=== PATIENT | male | born 1960 ===

== ENCOUNTER 2016-10-14 17:23 | Emergency (ER) | payer OTHER, MEDICARE ==
[2016-10-14 17:23] VITALS: PULSE 61; BMI 35.2
[2016-10-14 17:30] VITALS: TEMP 98.2
[2016-10-14] MEDS ORDERED: HYDROmorphone 1 mg/ml ISec IVP STA ×2 (18:09→21:02)
--- NOTE | 2016-10-14 18:20 | ED PDOC ---
Arrival/HPI - General Chief Complaint: Abnormal Skin Integrity Time Seen by Provider: 10/14/16 17:24 Historian: Patient - History of Present Illness Narrative History of Present Illness (Text): 10/14/16 18:13 56 y/o male, pmh including left lower leg dvt/PE, post lt. knee surgery done on 07/2016, c/o bilateral lower extremities rash x 1 week. Pt. stated that he has lt. lower calf pain for the past 1 week, no fall or trauma, concerning about the DVT, no dizziness, no night sweat, no palpitation, no chest pain or shortness of breath, no other medical or psychological complaints. Past Medical History - Provider Review Nursing Documentation Reviewed: Yes - Past History Past History: No Previous - Infectious Disease Hx of Infectious Diseases: None - Tetanus Immunization Tetanus Immunization: Unknown - Reproductive Currently : No - Cardiac Hx Atrial Fibrillation: Yes (states he was dx'ed in an er in [place]) - Pulmonary Hx Respiratory Disorders: Yes Hx Asthma: Yes Hx Sleep Apnea: Yes (cpap at night) - Neurological Hx Neurological Disorder: No - HEENT Hx HEENT Disorder: Yes (Wears glasses.) - Renal Hx Renal Disorder: No Hx Dialysis: No - Endocrine/Metabolic Hx Endocrine Disorders: No - Hematological/Oncological Hx Blood Disorders: No - Integumentary Hx Dermatological Disorder: Yes (s/p left knee replacement in 05/2013. Open wound.) - Musculoskeletal/Rheumatological Hx Musculoskeletal Disorders: Yes (States APPROX 12 back surgeries/4 cervical surgeries/spinal fusion sX.) - Gastrointestinal Hx Gastrointestinal Disorders: Yes Hx Gastroesophageal Reflux: Yes Other/Comment: esophagitis, duodenitis, gastrophoresis, colitis - Genitourinary/Gynecological Hx Genitourinary Disorders: Yes Hx Prostate Problems: Yes - Psychiatric Hx Psychophysiologic Disorder: Yes Hx Substance Use: No - Surgical History Hx Cardiac Catheterization: Yes (no stent placement) Hx Joint Replacement: Yes (Right hip,LEFT HIP, Left knee x 2.) Hx Musculoskeletal Surgery: Yes Hx Orthopedic Surgery: Yes (neck, left knee replacement x 2) Other/Comment: rt inguinla surgery 07/31/15. L knee tendon graft 07/2016 - Anesthesia Hx Anesthesia Reactions: No (DIFFICULT INTUBATION R/T NECK PROBLEMS) Hx Malignant Hyperthermia: No - Suicidal Assessment Feels Threatened In Home Enviroment: No Family/Social History - Physician Review Nursing Documentation Reviewed: Yes Family/Social History: Unknown Family HX Smoking Status: Never Smoked Hx Alcohol Use: No Hx Substance Use: No Hx Substance Use Treatment: No Allergies/Home Meds Allergies/Adverse Reactions: Allergies strawberry Allergy (Intermediate, Verified 10/14/16 17:25) RASH tobramycin Allergy (Intermediate, Verified 10/14/16 17:25) DIZZINESS Home Medications: Home Meds Medication Instructions Recorded Confirmed Hydromorphone HCl [Dilaudid] 2 mg PO TID 09/06/14 10/14/16 Metoprolol Succinate [Toprol XL] 100 mg PO DAILY 10/12/14 10/14/16 Dicyclomine [Bentyl] 20 mg PO BID 10/16/15 10/14/16 Omeprazole [Prilosec] 40 mg PO QAM 10/16/15 10/14/16 Warfarin [Coumadin] 7 mg PO HS 01/14/16 10/14/16 Flecainide [Tambocor] 50 mg PO BID 03/17/16 10/14/16 Furosemide [Lasix] 40 mg PO BID 03/17/16 10/14/16 Cyclobenzaprine [Flexeril] 10 mg PO BID 08/21/16 10/14/16 Review of Systems - Review of Systems Constitutional: absent: Fatigue, Fevers Eyes: absent: Vision Changes ENT: absent: Hearing Changes Respiratory: absent: Cough, Sputum Cardiovascular: absent: Chest Pain Gastrointestinal: absent: Abdominal Pain, Nausea, Vomiting Musculoskeletal: Arthralgias. absent: Back Pain, Neck Pain, Joint Swelling, Myalgias Skin: Rash. absent: Pruritis, Skin Lesions, Laceration, Abscess, Ulcer, Cellulitis Neurological: absent: Headache, Dizziness, Focal Weakness, Gait Changes Psychiatric: absent: Anxiety, Depression, Suicidal Ideation Physical Exam Vital Signs Temp Pulse Resp BP Pulse Ox 10/14/16 21:48 61 18 149/92 H 99 10/14/16 20:00 65 18 165/86 H 98 10/14/16 18:09 61 18 169/93 H 98 10/14/16 17:29 98.2 F 56 L 202/95 H 16 L Appearance: Positive for: Well-Appearing, Non-Toxic, Comfortable Pain Distress: Severe Mental Status: Positive for: Alert and Oriented X 3 - Systems Exam Head: Present: Atraumatic, Normocephalic Pupils: Present: PERRL Extroacular Muscles: Present: EOMI Conjunctiva: Present: Normal Mouth: Present: Moist Mucous Membranes Neck: Present: Normal Range of Motion Respiratory/Chest: Present: Clear to Auscultation, Good Air Exchange. No: Respiratory Distress, Accessory Muscle Use Cardiovascular: Present: Regular Rate and Rhythm, Normal S1, S2. No: Murmurs Abdomen: Present: Normal Bowel Sounds. No: Tenderness, Distention, Peritoneal Signs Back: Present: Normal Inspection Upper Extremity: Present: Normal Inspection. No: Cyanosis, Edema Lower Extremity: Present: Normal Inspection, Other (Bilateral lower extremities : +lt. knee swelling with bilateral petechiae rash noted on the lake and calf region, no cellulitis or streaking, no other medical or psychological complaints , +DPPT pulses, capillary refill< 2 seconds, neurovascular intact. ). No: Edema Neurological: Present: GCS=15, CN II-XII Intact, Speech Normal Skin: Present: Warm, Dry, Normal Color. No: Rashes Psychiatric: Present: Alert, Oriented x 3, Normal Insight, Normal Concentration Medical Decision Making ED Course and Treatment: 10/14/16 18:27 -labs/ck -LLE venuous doppler -Lt. knee xray -IV dilaudid 10/14/16 21:39 -LLE Venuous Doppler: as per preliminary report, no acute DVT -Lt. knee xray show no acute fracture or dislocation -Labs are non-significant -INR 2.98 within therapeutic range -Pain decreased -Pt. now stated that the rash on his legs been going on for over 5 months, no pain or discomfort. -Discharge home with vi wrap, crutches, continue your pain medication at home, follow up with your own pmd/orthopedic/dermatitis/hematology and oncology within 2 days, return to the ER for any new or worsening signs or symptoms. - Lab Interpretations Lab Results: 10/14/16 19:58 10/14/16 19:58 Lab Results 10/14/16 21:05: PT 32.2 H*, INR 2.98 H 10/14/16 19:58: Sodium 142, Potassium 3.6, Chloride 107, Carbon Dioxide 25, Anion Gap 14, BUN 17, Creatinine 0.9, Est GFR ( Amer) > 60, Est GFR (Non- Af Amer) > 60, Random Glucose 92, Calcium 8.9, Total Bilirubin 0.6, AST 30, ALT 43, Alkaline Phosphatase 177 H, Total Creatine Kinase 436 H, CK-MB (CK-2) 3.9 H , CK-MB (CK-2) % Cancelled, Total Protein 7.6, Albumin 4.0, Globulin 3.6, Albumin/Globulin Ratio 1.1 10/14/16 19:58: WBC 7.4, RBC 4.68, Hgb 14.1, Hct 41.3 L, MCV 88.2, MCH 30.1, MCHC 34.1, RDW 14.3, Plt Count 169, MPV 9.0, Gran % 65.3, Lymph % (Auto) 27.2, [place] % (Auto) 5.0, Eos % (Auto) 2.2, Baso % (Auto) 0.3, Gran # 4.84, Lymph # 2.0 , [place] # 0.4, Eos # 0.2, Baso # 0.02 I have reviewed the lab results: Yes Interpretation: No clinic. lab abnormalty - RAD Interpretation Radiology Orders: 10/14/16 18:09 DUPLEX LOWER EXTRM VEIN LEFT [US] Stat 10/14/16 18:20 KNEE WITH PATELLA LEFT 3 VIEW [RAD] Stat LLE Venuous Doppler: as per preliminary report, no acute DVT Lt. knee xray: no acute findings. Drug Coordinator: Radiologist - Medication Orders Current Medication Orders: Discontinued Medications Hydromorphone HCl (Dilaudid) 1 mg IVP STAT STA Stop: 10/14/16 18:10 Last Admin: 10/14/16 20:45 Dose: 1 mg Hydromorphone HCl (Dilaudid) 1 mg IVP STAT STA Stop: 10/14/16 21:03 Last Admin: 10/14/16 21:27 Dose: 1 mg - PA / FRONT MAN / Resident Statement MD/DO has reviewed & agrees with the documentation as recorded. Disposition/Present on Arrival - Present on Arrival Any Indicators Present on Arrival: No History of DVT/PE: Yes History of Uncontrolled Diabetes: No Urinary Catheter: No History of Decub. Ulcer: No History Surgical Site Infection Following: None - Disposition Have Diagnosis and Disposition been Completed?: Yes Diagnosis: Petechiae, Leg pain, Knee pain Disposition: HOME/ ROUTINE Disposition Time: 21:42 Patient Plan: Discharge Condition: IMPROVED Additional Instructions: Discharge home with vi wrap, crutches, continue your pain medication at home, follow up with your own pmd/orthopedic/dermatitis/hematology and oncology within 2 days, return to the ER for any new or worsening signs or symptoms. Referrals: Raciel Rivera MD [Primary Care Provider] - Follow up with primary Jennifer Hanna MD [Staff Provider] - Follow up with primary April Lackey MD [Staff Provider] - Follow up with primary Patricia Colon MD [Staff Provider] - Follow up with primary Forms: WORK NOTE
[2016-10-14 18:27] VITALS: RESP 18
[2016-10-14 19:59] LABS: ADD MANUAL DIFF? NO
[2016-10-14 20:08] LABS: BASO # 0.02 K/mm3 (0.0-2.0); BASO % 0.3 % (0.0-3.0); EOS # 0.2 (0.0-0.7); EOS % 2.2 % (1.5-5.0); GRAN # 4.84 (1.4-6.5); GRAN % 65.3 % (50.0-68.0); HEMATOCRIT 41.3 % (42.0-52.0); LYMPH % 27.2 % (22.0-35.0); MEAN CELL VOLUME 88.2 fL (80.0-105.0); MEAN CORPUSCULAR HEMOGLOBIN 30.1 pg (25.0-35.0); MEAN CORPUSCULAR HGB CONC 34.1 g/dl (31.0-37.0); MONO # 0.4 (0.1-0.6); PLATELET COUNT 169 10^3/uL (120.0-450.0); RED CELL DISTRIBUTION WIDTH 14.3 % (11.5-14.5); WHITE BLOOD COUNT 7.4 10^3/ul (4.5-11.0)
[2016-10-14 20:33] LABS: ALB/GLOB RATIO 1.1 (1.1-1.8); ALKALINE PHOSPHATASE 177 U/L (38-133); ALT/SGPT 43 U/L (7-56); AST/SGOT 30 U/L (15-59); BILIRUBIN,TOTAL 0.6 mg/dL (0.2-1.3); BLOOD UREA NITROGEN 17 mg/dL (7-21); CALCIUM 8.9 mg/dL (8.4-10.5); CARBON DIOXIDE 25 mmol/L (21-33); CHLORIDE 107 mmol/L (98-107); GFR AFRICAN-AMERICAN > 60; GLUCOSE,RANDOM 92 mg/dL (70-110); POTASSIUM 3.6 mmol/L (3.6-5.0); SODIUM 142 mmol/L (132-148); TOTAL PROTEIN 7.6 g/dL (5.8-8.3)
[2016-10-14 21:30] LABS: INR 2.98 (0.93-1.08)
[2016-10-14 23:29] VITALS: BP 149/92; PULSE 61; O2SAT 99
--- NOTE | 2016-10-15 08:14 | RAD ---
PROCEDURE: Left Knee Radiographs. HISTORY: Pain. COMPARISON: None. FINDINGS: BONES: Normal. No fracture. JOINTS: There is a left knee prosthesis. There is no fracture or loosening JOINT EFFUSION: None. OTHER FINDINGS: None. IMPRESSION: No acute findings
--- NOTE | 2016-10-15 09:08 | US ---
PROCEDURE: Left lower extremity venous US HISTORY: Leg pain and swelling. Evaluate for DVT. PHYSICIAN(S): Adan Herrera MD. TECHNIQUE: Duplex sonography and color-flow Doppler with graded compression were used to evaluate the deep venous system of the left lower extremity. FINDINGS: The exam is limited by edema and body habitus. The visualized deep venous system of the left lower extremity is sonographically normal and compressible. Normal wave forms and augmentation are seen. There is no sonographic evidence for deep venous thrombosis in the visualized segments of the left lower extremity. IMPRESSION: 1. No sonographic evidence for deep venous thrombosis in the visualized segments of the left lower extremity.
== END 2016-10-14 21:48 | disposition home or self-care (01) ==
LOC: ED 17:23
DX: R23.3 Spontaneous ecchymoses (principal); M25.562 Pain in left knee; M79.605 Pain in left leg
CPT/HCPCS: 73562; 80053; 82550; 82553; 85025; 85610; 93971; 96374; 96376; 99283; J1170

== ENCOUNTER 2016-10-31 08:50 | Emergency (ER) | payer OTHER, MEDICARE ==
[2016-10-31 08:51] VITALS: PULSE 61
[2016-10-31 09:10] VITALS: O2SAT 98; BMI 36.6
--- NOTE | 2016-10-31 10:15 | ED PDOC ---
Arrival/HPI - General Chief Complaint: Trauma Time Seen by Provider: 10/31/16 09:43 Historian: Patient - History of Present Illness Narrative History of Present Illness (Text): 10/31/16 10:07 A 56 year old male, whose past medical history includes DVT and PE on coumadin, presents to the emergency department complaining of pain to the inside and back of his left knee after mechanical fall 2 days ago. Patient reports the floor was slippery causing him to fall backwards. Patient denies striking the back of his head, loss of consciousness, headache, dizziness, numbness, weakness, neck pain, back pain, fever, nausea, vomiting, abdominal pain, chest pain, shortness of breath or any other complaints. Patient able to ambulate with cane, which is normal to baseline. Patient reports he has had 4 surgeries on his left knee and has a scheduled appointment with his private orthopedist this week. PMD: Dr. Rivera Time/Duration: Other (2 days) Symptom Course: Unchanged Quality: Other Context: Other Past Medical History - Provider Review Nursing Documentation Reviewed: Yes - Past History Past History: No Previous - Infectious Disease Hx of Infectious Diseases: None - Tetanus Immunization Tetanus Immunization: Unknown - Reproductive Currently : No - Cardiac Hx Atrial Fibrillation: Yes (states he was dx'ed in an er in [place]) - Pulmonary Hx Respiratory Disorders: Yes Hx Asthma: Yes Hx Sleep Apnea: Yes (cpap at night) - Neurological Hx Neurological Disorder: No - HEENT Hx HEENT Disorder: Yes (Wears glasses.) - Renal Hx Renal Disorder: No Hx Dialysis: No - Endocrine/Metabolic Hx Endocrine Disorders: No - Hematological/Oncological Hx Blood Disorders: No - Integumentary Hx Dermatological Disorder: Yes (s/p left knee replacement in 05/2013. Open wound.) - Musculoskeletal/Rheumatological Hx Musculoskeletal Disorders: Yes (States APPROX 12 back surgeries/4 cervical surgeries/spinal fusion sX.) Hx Back Pain: Yes Other/Comment: walks with cane - Gastrointestinal Hx Gastrointestinal Disorders: Yes Hx Gastroesophageal Reflux: Yes Other/Comment: esophagitis, duodenitis, gastrophoresis, colitis - Genitourinary/Gynecological Hx Genitourinary Disorders: Yes Hx Prostate Problems: Yes - Psychiatric Hx Psychophysiologic Disorder: Yes Hx Substance Use: No - Surgical History Hx Cardiac Catheterization: Yes (no stent placement) Hx Joint Replacement: Yes (Right hip,LEFT HIP, Left knee x 2.) Hx Musculoskeletal Surgery: Yes Hx Orthopedic Surgery: Yes (neck, left knee replacement x 2) Other/Comment: rt inguinla surgery 07/31/15. L knee tendon graft 07/2016 - Anesthesia Hx Anesthesia: Yes Hx Anesthesia Reactions: No (DIFFICULT INTUBATION R/T NECK PROBLEMS) Hx Malignant Hyperthermia: No - Suicidal Assessment Feels Threatened In Home Enviroment: No Family/Social History - Physician Review Nursing Documentation Reviewed: Yes Family/Social History: No Known Family HX Smoking Status: Never Smoked Hx Alcohol Use: No Hx Substance Use: No Hx Substance Use Treatment: No Allergies/Home Meds Allergies/Adverse Reactions: Allergies strawberry Allergy (Intermediate, Verified 10/31/16 09:12) RASH tobramycin Allergy (Intermediate, Verified 10/31/16 09:12) DIZZINESS Home Medications: Home Meds Medication Instructions Recorded Confirmed Hydromorphone HCl [Dilaudid] 2 mg PO TID 09/06/14 10/31/16 Metoprolol Succinate [Toprol XL] 100 mg PO DAILY 10/12/14 10/31/16 Dicyclomine [Bentyl] 20 mg PO BID 10/16/15 10/31/16 Omeprazole [Prilosec] 40 mg PO QAM 10/16/15 10/31/16 Warfarin [Coumadin] 7 mg PO HS 01/14/16 10/31/16 Flecainide [Tambocor] 50 mg PO BID 03/17/16 10/31/16 Furosemide [Lasix] 40 mg PO BID 03/17/16 10/31/16 Cyclobenzaprine [Flexeril] 10 mg PO BID 08/21/16 10/31/16 Albuterol Sulfate [Proair 1 puff IH PRN PRN 10/31/16 10/31/16 Respiclick] Lidocaine [Lidocare] 2 each TD DAILY 10/31/16 10/31/16 Oxybutynin [Ditropan Tab] 10 mg PO DAILY 10/31/16 10/31/16 Review of Systems - Physician Review All systems were reviewed & negative as marked: Yes - Review of Systems Constitutional: absent: Fevers Respiratory: absent: SOB Cardiovascular: absent: Chest Pain Gastrointestinal: absent: Abdominal Pain, Diarrhea, Nausea, Vomiting Musculoskeletal: Other (left knee pain). absent: Back Pain, Neck Pain Neurological: absent: Headache, Dizziness, Focal Weakness (/numbness) Physical Exam - Physical Exam Narrative Physical Exam (Text): Constitutional: No acute distress. Head: Normocephalic. Atraumatic. Eyes: PERRL. ENT: Moist mucous membranes. Neck: Supple. No midline tenderness. Cardiovascular: Regular rate. Chest: No tenderness. Respiratory: Clear to auscultation bilaterally. GI: Soft. Nontender. Nondistended. Back: No CVA tenderness. No midline tenderness. Musculoskeletal: Full ROM. No bony tenderness. No swelling of extremities. No masses. Old surgical scars noted. Patient able to ambulate with cane, normal to baseline. Neurologic: Alert, no focal deficit. Vital Signs Reviewed: Yes Vital Signs Temp Pulse Resp BP Pulse Ox 10/31/16 09:09 98.0 F 57 L 19 180/100 H 98 Temperature: Afebrile Blood Pressure: Hypertensive Pulse: Bradycardic Respiratory Rate: Normal Appearance: Positive for: Well-Appearing, Non-Toxic, Comfortable Pain Distress: None Mental Status: Positive for: Alert and Oriented X 3 Medical Decision Making ED Course and Treatment: 10/31/16 10:07 Impression: A 56 year old male with left knee pain after mechanical fall. Full ROM and no bony tenderness on exam. Patient ambulating wit cane, normal to baseline. Plan: -- Left knee xray, check hardware -- Labs -- Toradol -- Reassess and disposition Progress Notes: XR negative for fracture or misplaced hardware as read by me. - Lab Interpretations Lab Results: 10/31/16 10:24 10/31/16 10:24 Lab Results 10/31/16 10:24: Sodium 142, Potassium 3.7, Chloride 106, Carbon Dioxide 28, Anion Gap 12, BUN 16, Creatinine 0.8, Est GFR ( Amer) > 60, Est GFR (Non- Af Amer) > 60, Random Glucose 96, Calcium 8.9, Total Bilirubin 0.5, AST 40, ALT 56, Alkaline Phosphatase 157 H, Total Protein 7.3, Albumin 4.1, Globulin 3.2, Albumin/Globulin Ratio 1.3 10/31/16 10:24: PT 25.7 H, INR 2.38 H, APTT 38.0 H 10/31/16 10:24: WBC 6.9, RBC 4.68, Hgb 14.0, Hct 40.8 L, MCV 87.2, MCH 29.9, MCHC 34.3, RDW 14.1, Plt Count 158, MPV 9.2, Gran % 64.7, Lymph % (Auto) 27.4, [place] % (Auto) 5.4, Eos % (Auto) 2.2, Baso % (Auto) 0.3, Gran # 4.44, Lymph # 1.9 , [place] # 0.4, Eos # 0.2, Baso # 0.02 I have reviewed the lab results: Yes - RAD Interpretation Radiology Orders: 10/31/16 10:04 KNEE LEFT 2 VIEWS (AP & LAT) [RAD] Stat - Medication Orders Current Medication Orders: Discontinued Medications Ketorolac Tromethamine (Toradol) 30 mg IVP STAT STA Stop: 10/31/16 10:04 Last Admin: 10/31/16 10:07 Dose: 30 mg - Scribe Statement The provider has reviewed the documentation as recorded by the Gracy Jaffe Provider Scribe Attestation: All medical record entries made by the Scribe were at my direction and personally dictated by me. I have reviewed the chart and agree that the record accurately reflects my personal performance of the history, physical exam, medical decision making, and the department course for this patient. I have also personally directed, reviewed, and agree with the discharge instructions and disposition. Disposition/Present on Arrival - Present on Arrival Any Indicators Present on Arrival: Yes History of DVT/PE: Yes History of Uncontrolled Diabetes: No Urinary Catheter: No History of Decub. Ulcer: No History Surgical Site Infection Following: None - Disposition Have Diagnosis and Disposition been Completed?: Yes Diagnosis: Knee pain Disposition: HOME/ ROUTINE Disposition Time: 11:29 Patient Plan: Discharge Patient Problems: Current Active Problems Problem Status Onset Knee pain Acute Condition: STABLE Discharge Instructions (ExitCare): Knee Pain (ED) Referrals: Raciel Rivera MD [Primary Care Provider] - Follow up with primary
[2016-10-31 10:25] LABS: ADD MANUAL DIFF? NO
[2016-10-31 10:27] LABS: BASO # 0.02 K/mm3 (0.0-2.0); BASO % 0.3 % (0.0-3.0); EOS # 0.2 (0.0-0.7); EOS % 2.2 % (1.5-5.0); GRAN # 4.44 (1.4-6.5); GRAN % 64.7 % (50.0-68.0); HEMATOCRIT 40.8 % (42.0-52.0); LYMPH # 1.9 (1.2-3.4); LYMPH % 27.4 % (22.0-35.0); MEAN CELL VOLUME 87.2 fL (80.0-105.0); MEAN CORPUSCULAR HEMOGLOBIN 29.9 pg (25.0-35.0); MEAN CORPUSCULAR HGB CONC 34.3 g/dl (31.0-37.0); MEAN PLATELET VOLUME 9.2 fl (7.0-11.0); MONO # 0.4 (0.1-0.6); MONO % 5.4 % (1.0-6.0); PLATELET COUNT 158 10^3/uL (120.0-450.0); RED CELL DISTRIBUTION WIDTH 14.1 % (11.5-14.5); WHITE BLOOD COUNT 6.9 10^3/ul (4.5-11.0)
[2016-10-31 10:39] LABS: ALB/GLOB RATIO 1.3 (1.1-1.8); ALKALINE PHOSPHATASE 157 U/L (38-133); ALT/SGPT 56 U/L (7-56); AST/SGOT 40 U/L (15-59); BILIRUBIN,TOTAL 0.5 mg/dL (0.2-1.3); BLOOD UREA NITROGEN 16 mg/dL (7-21); CALCIUM 8.9 mg/dL (8.4-10.5); CARBON DIOXIDE 28 mmol/L (21-33); CHLORIDE 106 mmol/L (98-107); GFR AFRICAN-AMERICAN > 60; GLUCOSE,RANDOM 96 mg/dL (70-110); POTASSIUM 3.7 mmol/L (3.6-5.0); SODIUM 142 mmol/L (132-148); TOTAL PROTEIN 7.3 g/dL (5.8-8.3)
[2016-10-31 10:41] LABS: INR 2.38 (0.93-1.08)
[2016-10-31 11:58] VITALS: BP 154/80; PULSE 78; RESP 18; TEMP 98.6
--- NOTE | 2016-10-31 14:49 | RAD ---
PROCEDURE: Left Knee Radiographs. HISTORY: Pain. COMPARISON: None. FINDINGS: BONES: Status post total knee replacement. No acute fracture identified. No evidence of prosthesis loosening. JOINTS: Total knee replacement JOINT EFFUSION: None. OTHER FINDINGS: None. IMPRESSION: No acute fracture. Status post left TKR.
== END 2016-10-31 11:30 | disposition home or self-care (01) ==
LOC: ED 08:50
DX: M25.562 Pain in left knee (principal); Z86.718 Personal history of other venous thrombosis and embolism; Z79.01 Long term (current) use of anticoagulants; Z96.652 Presence of left artificial knee joint
CPT/HCPCS: 73560; 80053; 85025; 85610; 85730; 96374; 99283; J1885

== ENCOUNTER 2016-11-20 11:27 | Emergency (ER) | payer OTHER, MEDICARE ==
[2016-11-20 11:27] VITALS: PULSE 61; BMI 36.6
[2016-11-20 11:40] VITALS: BP 160/92; PULSE 75; RESP 17; TEMP 98.6; O2SAT 95
--- NOTE | 2016-11-20 11:59 | ED PDOC ---
Arrival/HPI - General Chief Complaint: Upper Extremity Problem/Injury Time Seen by Provider: 11/20/16 11:45 Historian: Patient - History of Present Illness Narrative History of Present Illness (Text): 11/20/16 11:59 This 56 yo male presents to this ED c/o b/l shoulder pain, and neck pain x 2 weeks. Patient stated he slipped and fell down on his right side. Patient also admits doing Physical Therapy, doing exercise. Denies sob, cp, abdominal pain, paresthesias, weakness, dizziness, abnormal gait, /GI incontinence, saddle anesthesias, back pain, or urinary retention. Time/Duration: Other (2 weeks) Context: Home Past Medical History - Provider Review Nursing Documentation Reviewed: Yes - Past History Past History: No Previous - Infectious Disease Hx of Infectious Diseases: None - Tetanus Immunization Tetanus Immunization: Unknown - Reproductive Currently : No - Cardiac Hx Atrial Fibrillation: Yes (states he was dx'ed in an [place]) - Pulmonary Hx Respiratory Disorders: Yes Hx Asthma: Yes Hx Sleep Apnea: Yes (cpap at night) - Neurological Hx Neurological Disorder: No - HEENT Hx HEENT Disorder: Yes (Wears glasses.) - Renal Hx Renal Disorder: No Hx Dialysis: No - Endocrine/Metabolic Hx Endocrine Disorders: No - Hematological/Oncological Hx Blood Disorders: No - Integumentary Hx Dermatological Disorder: Yes (s/p left knee replacement in 05/2013. Open wound.) - Musculoskeletal/Rheumatological Hx Musculoskeletal Disorders: Yes (States APPROX 12 back surgeries/4 cervical surgeries/spinal fusion sX.) Hx Back Pain: Yes Other/Comment: walks with cane - Gastrointestinal Hx Gastrointestinal Disorders: Yes Hx Gastroesophageal Reflux: Yes Other/Comment: esophagitis, duodenitis, gastrophoresis, colitis - Genitourinary/Gynecological Hx Genitourinary Disorders: Yes Hx Prostate Problems: Yes - Psychiatric Hx Psychophysiologic Disorder: Yes Hx Substance Use: No - Surgical History Hx Cardiac Catheterization: Yes (no stent placement) Hx Joint Replacement: Yes (Right hip,LEFT HIP, Left knee x 2.) Hx Musculoskeletal Surgery: Yes Hx Orthopedic Surgery: Yes (neck, left knee replacement x 2) Other/Comment: rt inguinla surgery 07/31/15. L knee tendon graft 07/2016 - Anesthesia Hx Anesthesia: Yes Hx Anesthesia Reactions: (DIFFICULT INTUBATION R/T NECK PROBLEMS) - Suicidal Assessment Feels Threatened In Home Enviroment: No Family/Social History - Physician Review Nursing Documentation Reviewed: Yes Family/Social History: No Known Family HX Smoking Status: Never Smoked Hx Alcohol Use: No Hx Substance Use: No Hx Substance Use Treatment: No Allergies/Home Meds Allergies/Adverse Reactions: Allergies strawberry Allergy (Intermediate, Verified 11/20/16 11:34) RASH tobramycin Allergy (Intermediate, Verified 11/20/16 11:34) DIZZINESS Home Medications: Home Meds Medication Instructions Recorded Confirmed Hydromorphone HCl [Dilaudid] 2 mg PO TID 09/06/14 11/20/16 Metoprolol Succinate [Toprol XL] 100 mg PO DAILY 10/12/14 11/20/16 Dicyclomine [Bentyl] 20 mg PO BID 10/16/15 11/20/16 Omeprazole [Prilosec] 40 mg PO QAM 10/16/15 11/20/16 Warfarin [Coumadin] 7 mg PO HS 01/14/16 11/20/16 Flecainide [Tambocor] 50 mg PO BID 03/17/16 11/20/16 Furosemide [Lasix] 40 mg PO BID 03/17/16 11/20/16 Cyclobenzaprine [Flexeril] 10 mg PO BID 08/21/16 11/20/16 Albuterol Sulfate [Proair 1 puff IH PRN PRN 10/31/16 11/20/16 Respiclick] Lidocaine [Lidocare] 2 each TD DAILY 10/31/16 11/20/16 Oxybutynin [Ditropan Tab] 10 mg PO DAILY 10/31/16 11/20/16 Review of Systems - Review of Systems Constitutional: Normal. absent: Fatigue, Weight Change, Fevers Eyes: Normal ENT: Normal Respiratory: Normal Cardiovascular: Normal Gastrointestinal: Normal Genitourinary Male: Normal Musculoskeletal: Neck Pain, Other (shoulders pain) Skin: Normal Neurological: Normal Endocrine: Normal Hemo/Lymphatic: Normal Psychiatric: Normal Physical Exam Vital Signs Temp Pulse Resp BP Pulse Ox 11/20/16 11:36 98.6 F 75 17 160/92 H 95 Temperature: Afebrile Blood Pressure: Normal Pulse: Regular Respiratory Rate: Normal Appearance: Positive for: Well-Appearing, Non-Toxic, Comfortable Pain Distress: None Mental Status: Positive for: Alert and Oriented X 3 - Systems Exam Head: Present: Atraumatic, Normocephalic Pupils: Present: PERRL Extroacular Muscles: Present: EOMI Conjunctiva: Present: Normal Mouth: Present: Moist Mucous Membranes Neck: Present: Normal Range of Motion Back: Present: Normal Inspection. No: CVA Tenderness Upper Extremity: Present: Normal Inspection, Normal ROM, NORMAL PULSES, Neurovascularly Intact, Capillary Refill < 2s. No: Cyanosis, Edema Lower Extremity: Present: Normal Inspection, NORMAL PULSES, Normal ROM, Neurovascularly Intact, Capillary Refill < 2 s. No: Edema Neurological: Present: GCS=15, CN II-XII Intact, Speech Normal, Motor Func Grossly Intact, Normal Sensory Function, Normal Cerebellar Funct, Gait Normal, Memory Normal Skin: Present: Warm, Dry, Normal Color. No: Rashes Psychiatric: Present: Alert, Oriented x 3, Normal Insight, Normal Concentration Medical Decision Making ED Course and Treatment: 11/20/16 13:02 Re-evaluation. Patient feels better. Discussed results and plan with patient who expresses understanding. All questions answered and there is agreement with the plan to discharge home with instructions. Patient stable for discharge. Return if symptoms persist or worsen Re-evaluation Time: 13:02 Reassessment Condition: Re-examined, Improved - RAD Interpretation Narrative RAD Interpretations (Text): 11/20/16 13:03 b/l shoulder x-rays: No fx or sublux. Radiology Orders: 11/20/16 11:56 SHOULDER MIN 2 VIEWS BI [RAD] Stat 11/20/16 11:58 CERVICAL SPINE >18YR W/OBLIQUE [RAD] Stat - Medication Orders Current Medication Orders: Discontinued Medications Ketorolac Tromethamine (Toradol) 30 mg IM STAT STA Stop: 11/20/16 11:59 Last Admin: 11/20/16 12:02 Dose: 30 mg Disposition/Present on Arrival - Present on Arrival Any Indicators Present on Arrival: No History of DVT/PE: Yes History of Uncontrolled Diabetes: No Urinary Catheter: No History of Decub. Ulcer: No History Surgical Site Infection Following: None - Disposition Have Diagnosis and Disposition been Completed?: Yes Diagnosis: Shoulder pain, Neck pain Disposition: HOME/ ROUTINE Disposition Time: 13:04 Patient Plan: Discharge Condition: GOOD Discharge Instructions (ExitCare): Arthralgia (ED), Shoulder Pain (ED) Additional Instructions: Call private doctor for follow up visit in 1-2 days. Take medication as instructed. Return to emergency if symptoms worsen. Prescriptions: Methocarbamol [Robaxin-750] 750 mg PO TID #21 tab Naproxen 500 mg PO BID PRN #10 tab PRN Reason: Pain, Severe (8-10) Referrals: Raciel Rivera MD [Primary Care Provider] - Follow up with primary Forms: WORK NOTE
--- NOTE | 2016-11-20 13:12 | RAD ---
PROCEDURE: Radiographs of both shoulders HISTORY: pain s/p fall COMPARISON: 03/17/2016 FINDINGS: BONES: Right shoulder: Normal. No fracture. Left shoulder: Normal. No fracture. JOINTS: Right shoulder: Normal. No significant osteoarthritic changes. Left shoulder: There is some separation of the acromioclavicular joint with 14 mm of separation. This is unchanged SOFT TISSUES: Right shoulder: Grossly unremarkable. Right shoulder: Grossly unremarkable. OTHER FINDINGS: None. IMPRESSION: No acute findings
--- NOTE | 2016-11-20 13:16 | RAD ---
PROCEDURE: Cervical Spine Radiographs. HISTORY: Pain. COMPARISON: 02/14/2011 FINDINGS: BONES: Alignment maintained. No fracture. Dens Intact. DISC SPACES: Previous fusion C4-5, C5-6 and C6-7. SOFT TISSUES: Normal. No prevertebral soft tissue swelling. OTHER FINDINGS: Epidural leads are now seen IMPRESSION: No acute findings
== END 2016-11-20 13:16 | disposition home or self-care (01) ==
LOC: ED 11:27
DX: M54.2 Cervicalgia (principal); M25.512 Pain in left shoulder
CPT/HCPCS: 72050; 73030; 96372; 99282; J1885

== ENCOUNTER 2016-12-07 13:04 | Emergency (ER) | payer OTHER, MEDICARE ==
[2016-12-07 13:05] VITALS: PULSE 61; BMI 36.6
[2016-12-07 13:23] VITALS: RESP 18
[2016-12-07 13:38] VITALS: TEMP 98.1
--- NOTE | 2016-12-07 13:43 | ED PDOC ---
Arrival/HPI - General Chief Complaint: Headache Time Seen by Provider: 12/07/16 13:17 Historian: Patient - History of Present Illness Narrative History of Present Illness (Text): 12/07/16 13:39 56 year old male presents to the emergency department with headache after hitting his head on a wooden beam yesterday. Patient states he felt nauseous and disoriented today. Patient states he took Dilaudid for the pain. Denies pain to other body parts. No other complaints. Time/Duration: 24 hours Symptom Onset: Gradual Symptom Course: Unchanged Associated Symptoms (Text): None Past Medical History - Provider Review Nursing Documentation Reviewed: Yes - Past History Past History: No Previous - Infectious Disease Hx of Infectious Diseases: None - Tetanus Immunization Tetanus Immunization: Unknown - Reproductive Currently : No - Cardiac Hx Atrial Fibrillation: Yes (states he was dx'ed in an er in [place]) - Pulmonary Hx Respiratory Disorders: Yes Hx Asthma: Yes Hx Sleep Apnea: Yes (cpap at night) - Neurological Hx Neurological Disorder: No - HEENT Hx HEENT Disorder: Yes (Wears glasses.) - Renal Hx Renal Disorder: No Hx Dialysis: No - Endocrine/Metabolic Hx Endocrine Disorders: No - Hematological/Oncological Hx Blood Disorders: No - Integumentary Hx Dermatological Disorder: Yes (s/p left knee replacement in 05/2013. Open wound.) - Musculoskeletal/Rheumatological Hx Musculoskeletal Disorders: Yes (States APPROX 12 back surgeries/4 cervical surgeries/spinal fusion sX.) Hx Back Pain: Yes Other/Comment: walks with cane - Gastrointestinal Hx Gastrointestinal Disorders: Yes Hx Gastroesophageal Reflux: Yes Other/Comment: esophagitis, duodenitis, gastrophoresis, colitis - Genitourinary/Gynecological Hx Genitourinary Disorders: Yes Hx Prostate Problems: Yes - Psychiatric Hx Psychophysiologic Disorder: Yes Hx Substance Use: No - Surgical History Hx Cardiac Catheterization: Yes (no stent placement) Hx Joint Replacement: Yes (Right hip,LEFT HIP, Left knee x 2.) Hx Musculoskeletal Surgery: Yes Hx Orthopedic Surgery: Yes (neck, left knee replacement x 2) Other/Comment: rt inguinla surgery 07/31/15. L knee tendon graft 07/2016 - Anesthesia Hx Anesthesia: Yes Hx Anesthesia Reactions: (DIFFICULT INTUBATION R/T NECK PROBLEMS) - Suicidal Assessment Feels Threatened In Home Enviroment: No Family/Social History - Physician Review Nursing Documentation Reviewed: Yes Family/Social History: Unknown Family HX Smoking Status: Never Smoked Hx Alcohol Use: No Hx Substance Use: No Hx Substance Use Treatment: No Allergies/Home Meds Allergies/Adverse Reactions: Allergies strawberry Allergy (Intermediate, Verified 12/07/16 13:19) RASH tobramycin Allergy (Intermediate, Verified 12/07/16 13:19) DIZZINESS Home Medications: Home Meds Medication Instructions Recorded Confirmed Hydromorphone HCl [Dilaudid] 2 mg PO TID 09/06/14 11/20/16 Metoprolol Succinate [Toprol XL] 100 mg PO DAILY 10/12/14 11/20/16 Dicyclomine [Bentyl] 20 mg PO BID 10/16/15 11/20/16 Omeprazole [Prilosec] 40 mg PO QAM 10/16/15 11/20/16 Warfarin [Coumadin] 7 mg PO HS 01/14/16 11/20/16 Flecainide [Tambocor] 50 mg PO BID 03/17/16 11/20/16 Furosemide [Lasix] 40 mg PO BID 03/17/16 11/20/16 Cyclobenzaprine [Flexeril] 10 mg PO BID 08/21/16 11/20/16 Albuterol Sulfate [Proair 1 puff IH PRN PRN 10/31/16 11/20/16 Respiclick] Lidocaine [Lidocare] 2 each TD DAILY 10/31/16 11/20/16 Oxybutynin [Ditropan Tab] 10 mg PO DAILY 10/31/16 11/20/16 Review of Systems - Physician Review All systems were reviewed & negative as marked: Yes - Review of Systems Respiratory: absent: SOB Cardiovascular: absent: Chest Pain Gastrointestinal: Nausea Neurological: Headache Physical Exam Vital Signs Reviewed: Yes Vital Signs Temp Pulse Resp BP Pulse Ox 12/07/16 14:55 65 18 169/96 H 99 12/07/16 13:28 98.1 F 62 18 164/95 H 96 12/07/16 13:20 97.9 F 64 18 198/106 H 96 Temperature: Afebrile Blood Pressure: Hypertensive Pulse: Regular Respiratory Rate: Normal Appearance: Positive for: Well-Appearing, Non-Toxic, Comfortable Pain Distress: None Mental Status: Positive for: Alert and Oriented X 3 - Systems Exam Head: Present: Atraumatic, Normocephalic Pupils: Present: PERRL Extroacular Muscles: Present: EOMI Conjunctiva: Present: Normal Mouth: Present: Moist Mucous Membranes Neck: Present: Normal Range of Motion Respiratory/Chest: Present: Clear to Auscultation, Good Air Exchange. No: Respiratory Distress, Accessory Muscle Use Cardiovascular: Present: Regular Rate and Rhythm, Normal S1, S2. No: Murmurs Abdomen: Present: Normal Bowel Sounds. No: Tenderness, Distention, Peritoneal Signs Back: Present: Normal Inspection Upper Extremity: Present: Normal Inspection. No: Cyanosis, Edema Lower Extremity: Present: Normal Inspection. No: Edema Neurological: Present: GCS=15, CN II-XII Intact, Speech Normal Skin: Present: Warm, Dry, Normal Color. No: Rashes Psychiatric: Present: Alert, Oriented x 3, Normal Insight, Normal Concentration Medical Decision Making ED Course and Treatment: Impression: 56 year old male presents to the emergency department with headache after hitting his head on a wooden beam yesterday. Differential Diagnosis included but are not limited to: Head injury r/o intracranial hemorrhage Plan: -- CT Head -- Reassess and disposition Prior Visits: Notes and results from previous visits were reviewed. Patient last seen in the ED on 11/20/16 for bilateral shoulder pain and discharged home. Progress Notes: CT Head Dispatcher Ship Pilot: Rodrigo Vidal MD IMPRESSION: No acute findings 12/07/16 14:[address] head negative. Neuro exam normal. Patient walking with no ataxia. Patient feels comfortable going home and he will f/u with his PMD Dr. Kimball and Neurologist Dr. Hendrickson. - RAD Interpretation Radiology Orders: 12/07/16 13:38 Brain [HEAD W/O CONTRAST] [CT] Stat - Medication Orders Current Medication Orders: Discontinued Medications Ondansetron HCl (Zofran Odt) 4 mg PO STAT STA Stop: 12/07/16 13:57 Last Admin: 12/07/16 13:57 Dose: 4 mg - Scribe Statement The provider has reviewed the documentation as recorded by the Gracy Pichardo Provider Scribe Attestation: All medical record entries made by the Dannaibmarkell were at my direction and personally dictated by me. I have reviewed the chart and agree that the record accurately reflects my personal performance of the history, physical exam, medical decision making, and the department course for this patient. I have also personally directed, reviewed, and agree with the discharge instructions and disposition. Disposition/Present on Arrival - Present on Arrival Any Indicators Present on Arrival: Yes History of DVT/PE: Yes History of Uncontrolled Diabetes: No Urinary Catheter: No History of Decub. Ulcer: No History Surgical Site Infection Following: None - Disposition Have Diagnosis and Disposition been Completed?: Yes Diagnosis: Head injury Disposition: HOME/ ROUTINE Disposition Time: 14:48 Patient Plan: Discharge Patient Problems: Current Active Problems Problem Status Onset Head injury Acute Condition: IMPROVED Discharge Instructions (ExitCare): Concussion (ED) Additional Instructions: Ms Mendoza, thank you for letting us take care of you today. Your provider was Dr. Mo. You were treated for Head Injury. The emergency medical care you received today was directed at your acute symptoms. If you were prescribed any medication, please fill it and take as directed. It may take several days for your symptoms to resolve. Return to the Emergency Department if your symptoms worsen, do not improve, or if you have any other problems. Please contact your doctor or call one of the physicians/clinics you have been referred to that are listed on the Patient Visit Information form that is included in your discharge packet. Bring any paperwork you were given at discharge with you along with any medications you are taking to your follow up visit. Our treatment cannot replace ongoing medical care by a primary care provider (PCP) outside of the emergency department. Thank you for allowing the [facility] team to be part of your care today. If you had an X-Ray or CT scan: A Radiologist will review the ED reading if any change in treatment is needed we will contact you. If you had a blood, urine, or wound culture: It will take several days for the results, if any change in treatment is needed we will contact you. If you had an STI test: It will take 48 hours for the results. Please call after 1 week if you have not heard back. Referrals: Raciel Rivera MD [Primary Care Provider] - Follow up with primary Forms: [employer] (Telugu), WORK NOTE
--- NOTE | 2016-12-07 14:39 | CT ---
PROCEDURE: CT HEAD WITHOUT CONTRAST. HISTORY: head injury r/o ICH COMPARISON: None available. TECHNIQUE: Axial computed tomography images were obtained through the head/brain without intravenous contrast. Radiation dose: Total exam DLP = 767 mGy-cm. This CT exam was performed using one or more of the following dose reduction techniques: Automated exposure control, adjustment of the mA and/or kV according to patient size, and/or use of iterative reconstruction technique. FINDINGS: HEMORRHAGE: No intracranial hemorrhage. BRAIN: No mass effect or edema. No atrophy or chronic microvascular ischemic changes. VENTRICLES: Unremarkable. No hydrocephalus. CALVARIUM: Unremarkable. PARANASAL SINUSES: Unremarkable as visualized. No significant inflammatory changes. MASTOID AIR CELLS: Unremarkable as visualized. No inflammatory changes. OTHER FINDINGS: None. IMPRESSION: No acute findings
[2016-12-07 15:52] VITALS: BP 167/94; PULSE 60; O2SAT 100
== END 2016-12-07 15:52 | disposition home or self-care (01) ==
LOC: ED 13:04
DX: S09.90XA Unspecified injury of head, initial encounter (principal); W22.8XXA Striking against or struck by other objects, initial encounter
CPT/HCPCS: 70450; 96372; 99285; J1885

== ENCOUNTER 2016-12-17 11:15 | Emergency (ER) | payer OTHER, MEDICARE ==
[2016-12-17 11:15] VITALS: PULSE 61; BMI 36.6
[2016-12-17 11:53] VITALS: RESP 18
--- NOTE | 2016-12-17 12:06 | ED PDOC ---
Arrival/HPI - General Historian: Patient - History of Present Illness Time/Duration: 4-6 hours - General Chief Complaint: Abnormal Skin Integrity Time Seen by Provider: 12/17/16 11:20 - History of Present Illness Narrative History of Present Illness (Text): 12/17/16 12:03 56 year old with past medical history of chronic back and knee pain s/p multiple surgeries, GERD, HTN, DVT, Afib, COPD, and sleep apnea presents to [facility] with a painful lump under his jaw. Patient noticed the lump this morning when he was eating breakfast. Patient reports the pain is worse with swallowing and movement. He also reports to have hoarseness of voice and subjective fever at home. Patient had a dental procedure 2 weeks ago. Patient has an interventional pain procedure for his left leg with Dr. Garcia tomorrow. Denies headache, chills, difficulty breathing, chest pain, palpitations, abdominal pain, nausea, vomiting, or diarrhea. (Denise Jimenez) Past Medical History - Provider Review Nursing Documentation Reviewed: Yes - Past History Past History: No Previous - Infectious Disease Hx of Infectious Diseases: None - Tetanus Immunization Tetanus Immunization: Unknown - Reproductive Currently : No - Cardiac Hx Atrial Fibrillation: Yes (states he was dx'ed in an er in [place]) - Pulmonary Hx Respiratory Disorders: Yes Hx Asthma: Yes Hx Sleep Apnea: Yes (cpap at night) - Neurological Hx Neurological Disorder: No - HEENT Hx HEENT Disorder: Yes (Wears glasses.) - Renal Hx Renal Disorder: No Hx Dialysis: No - Endocrine/Metabolic Hx Endocrine Disorders: No - Hematological/Oncological Hx Blood Disorders: No - Integumentary Hx Dermatological Disorder: Yes (s/p left knee replacement in 05/2013. Open wound.) - Musculoskeletal/Rheumatological Hx Musculoskeletal Disorders: Yes (States APPROX 12 back surgeries/4 cervical surgeries/spinal fusion sX.) Hx Back Pain: Yes Other/Comment: walks with cane - Gastrointestinal Hx Gastrointestinal Disorders: Yes Hx Gastroesophageal Reflux: Yes Other/Comment: esophagitis, duodenitis, gastrophoresis, colitis - Genitourinary/Gynecological Hx Genitourinary Disorders: Yes Hx Prostate Problems: Yes - Psychiatric Hx Psychophysiologic Disorder: Yes Hx Substance Use: No - Surgical History Hx Cardiac Catheterization: Yes (no stent placement) Hx Joint Replacement: Yes (Right hip,LEFT HIP, Left knee x 2.) Hx Musculoskeletal Surgery: Yes Hx Orthopedic Surgery: Yes (neck, left knee replacement x 2) Other/Comment: rt inguinla surgery 07/31/15. L knee tendon graft 07/2016 - Anesthesia Hx Anesthesia: Yes Hx Anesthesia Reactions: (DIFFICULT INTUBATION R/T NECK PROBLEMS) - Suicidal Assessment Feels Threatened In Home Enviroment: No Family/Social History - Physician Review Nursing Documentation Reviewed: Yes Family/Social History: No Known Family HX Smoking Status: Never Smoked Hx Alcohol Use: No Hx Substance Use: No Hx Substance Use Treatment: No Allergies/Home Meds Allergies/Adverse Reactions: Allergies strawberry Allergy (Intermediate, Verified 12/07/16 13:19) RASH tobramycin Allergy (Intermediate, Verified 12/07/16 13:19) DIZZINESS Home Medications: Home Meds Medication Instructions Recorded Confirmed Hydromorphone HCl [Dilaudid] 2 mg PO TID 09/06/14 12/17/16 Metoprolol Succinate [Toprol XL] 100 mg PO DAILY 10/12/14 12/17/16 Dicyclomine [Bentyl] 20 mg PO BID 10/16/15 12/17/16 Omeprazole [Prilosec] 40 mg PO QAM 10/16/15 12/17/16 Warfarin [Coumadin] 7 mg PO HS 01/14/16 12/17/16 Flecainide [Tambocor] 50 mg PO BID 03/17/16 12/17/16 Furosemide [Lasix] 40 mg PO BID 03/17/16 12/17/16 Cyclobenzaprine [Flexeril] 10 mg PO BID 08/21/16 12/17/16 Albuterol Sulfate [Proair 1 puff IH PRN PRN 10/31/16 12/17/16 Respiclick] Lidocaine [Lidocare] 2 each TD DAILY 10/31/16 12/17/16 Oxybutynin [Ditropan Tab] 10 mg PO DAILY 10/31/16 12/17/16 Losartan [Cozaar] 1 tab PO DAILY 12/17/16 12/17/16 Review of Systems - Physician Review All systems were reviewed & negative as marked: Yes - Review of Systems Constitutional: Normal, Fatigue, Fevers Eyes: Normal. absent: Photophobia ENT: Voice Changes Respiratory: Normal. absent: SOB, Cough Cardiovascular: Normal. absent: Chest Pain, Palpitations Gastrointestinal: Normal. absent: Abdominal Pain, Diarrhea, Nausea, Vomiting Musculoskeletal: Back Pain, Neck Pain Skin: Normal Neurological: Normal. absent: Dizziness Endocrine: Normal Hemo/Lymphatic: Normal Psychiatric: Normal Physical Exam Vital Signs Reviewed: Yes Temperature: Afebrile Blood Pressure: Hypertensive Pulse: Regular Respiratory Rate: Normal Appearance: Positive for: Well-Appearing, Non-Toxic, Comfortable Pain Distress: Mild Mental Status: Positive for: Alert and Oriented X 3 - Systems Exam Head: Present: Atraumatic Pupils: Present: PERRL Extroacular Muscles: Present: EOMI Conjunctiva: Present: Normal Mouth: Present: Moist Mucous Membranes Neck: Present: Other (swollen mass under the jaw, approximately 5cm in diameter , non indurated, painful to the touch, erythema appreciated). No: Normal Range of Motion (limited range of motion due to pain) Respiratory/Chest: Present: Clear to Auscultation, Good Air Exchange. No: Respiratory Distress, Accessory Muscle Use Cardiovascular: Present: Normal S1, S2. No: Murmurs Abdomen: Present: Normal Bowel Sounds, Other (multiple scars from spine surgeries, intrathecal pump located at RLQ). No: Tenderness, Distention, Peritoneal Signs Upper Extremity: Present: Normal Inspection, NORMAL PULSES. No: Cyanosis, Edema Lower Extremity: Present: Normal Inspection, NORMAL PULSES. No: Edema Neurological: Present: GCS=15, CN II-XII Intact, Speech Normal Skin: Present: Warm, Dry. No: Rashes Psychiatric: Present: Alert, Oriented x 3, Normal Insight, Normal Concentration Medical Decision Making ED Course and Treatment: 12/17/16 13:15 -CBC, CMP -TSH -CT neck soft tissue -Toradol DDx: reactive lymph nodes, sialadenitis, thyroiditis 12/17/16 15:[address] Rivera whom recommended patient to be discharged with Augmentin and follow up with ENT Dr. Boudreaux. 56 year old male presents with a painful lump under his jaw was found to have 11mm reactive lymph node. Patient is able to swallow soft food and liquid with pain. Patient's pain improved with Toradol and will be discharge on augment and instructed to follow with up ENT as outpatient. (Denise Jimenez) Patient seen and examined with resident. Came up with treatment and disposition plan with resident. The patient is a 56 year old male who comes into the emergency department for evaluation of a painful lump under his jaw. Additional HPI details as noted by the resident. (Petra Williamson) - Lab Interpretations Lab Results: 12/17/16 12:35 12/17/16 12:35 Lab Results 12/17/16 12:35: TSH 3rd Generation 1.9 12/17/16 12:35: Sodium 141, Potassium 3.7, Chloride 105, Carbon Dioxide 28, Anion Gap 12, BUN 15, Creatinine 0.9, Est GFR ( Amer) > 60, Est GFR (Non- Af Amer) > 60, Random Glucose 87, Calcium 8.6, Total Bilirubin 0.6, AST 27, ALT 43, Alkaline Phosphatase 133, Total Protein 7.1, Albumin 3.9, Globulin 3.2, Albumin/Globulin Ratio 1.2 12/17/16 12:35: WBC 7.2, RBC 4.71, Hgb 14.0, Hct 40.9 L, MCV 86.8, MCH 29.7, MCHC 34.2, RDW 14.0, Plt Count 134, MPV 9.0, Gran % 70.1 H, Lymph % (Auto) 21.7 L, Hickman % (Auto) 6.4 H, Eos % (Auto) 1.7, Baso % (Auto) 0.1, Gran # 5.01, Lymph # 1.6, Hickman # 0.5, Eos # 0.1, Baso # 0.01 - RAD Interpretation Narrative RAD Interpretations (Text): 12/17/16 14:45 PROCEDURE: CT NECK WITH CONTRAST HISTORY: soft tissue swelling under the jaw COMPARISON: None TECHNIQUE: CT of the neck with intravenous contrast. Coronal and sagittal reformats generated. Intravenous contrast dose: 100 cc of Omni 350 Radiation dose: DLP 460 mGy-cm This CT exam was performed using one or more of the following dose reduction techniques: Automated exposure control, adjustment of the mA and/or kV according to patient size, and/or use of iterative reconstruction technique. FINDINGS: NASOPHARYNX: Unremarkable. SUPRAHYOID NECK: Unremarkable oropharynx, oral cavity, parapharyngeal space and retropharyngeal space. INFRAHYOID NECK: Unremarkable larynx, hypopharynx, and supraglottic space. Vocal cords intact. MASS: None. GLANDS: Parotid and submandibular glands unremarkable. Normal size thyroid gland, without nodule. LYMPH NODES: Mildly enlarged lymph nodes are seen in the submandibular space an submental space. The largest node measures 11 mm. This adenopathy was not present on the previous exam. Findings are seen on axial image 46 and 42 series 2 CERVICAL SPINE: No fracture or focal lesion. VASCULAR STRUCTURES: Unremarkable. OTHER FINDINGS: None. IMPRESSION: Mildly enlarged lymph nodes are seen in the submandibular space an submental space. The largest node measures 11 mm. This adenopathy was not present on the previous exam (Denise Jimenez) Radiology Orders: 12/17/16 12:05 NECK SOFT TISSUE W/CONTRAST [CT] Stat - Medication Orders Current Medication Orders: Discontinued Medications Amoxicillin/Clavulanate Potassium (Augmentin 875 Mg-125 Mg Tab) 1 tab PO STAT STA PRN Reason: Protocol Stop: 12/17/16 15:05 Last Admin: 12/17/16 15:45 Dose: 1 tab Ibuprofen (Motrin Tab) 600 mg PO STAT STA Stop: 12/17/16 12:24 Last Admin: 12/17/16 13:21 Dose: Iohexol (Omnipaque 350 100 Ml) Confirm Administered Dose 350 mg .ROUTE .STK-MED ONE Stop: 12/17/16 12:12 Ketorolac Tromethamine (Toradol) 30 mg IVP STAT STA Stop: 12/17/16 13:22 Last Admin: 12/17/16 13:49 Dose: 30 mg - PA / [employer] INSPECTOR / Resident Statement / has reviewed & agrees with the documentation as recorded. / has examined the patient and agrees with the treatment plan. Disposition/Present on Arrival - Present on Arrival Any Indicators Present on Arrival: Yes History of DVT/PE: Yes History of Uncontrolled Diabetes: No Urinary Catheter: No History of Decub. Ulcer: No History Surgical Site Infection Following: None - Disposition Have Diagnosis and Disposition been Completed?: Yes Disposition Time: 14:58 Patient Plan: Discharge - Disposition Diagnosis: Reactive lymphadenopathy Disposition: HOME/ ROUTINE Condition: STABLE Discharge Instructions (ExitCare): Lymphadenopathy (ED) Additional Instructions: Take full course of antibiotics. Follow-up with ENT and PMD within 1 week. Return to emergency department with any worsening symptoms. Prescriptions: Amoxicillin/Clavulanate [Augmentin 875 MG-125 MG] 1 tab PO BID #20 tab Referrals: Raciel Rivera MD [Primary Care Provider] - Follow up with primary Milan Boudreaux DO [Staff Provider] - Follow up with primary
[2016-12-17] MEDS ORDERED: Iohexol 350 MG/100 ML VIAL ONE (12:11)
[2016-12-17 12:45] LABS: BASO # 0.01 K/mm3 (0.0-2.0); BASO % 0.1 % (0.0-3.0); EOS # 0.1 (0.0-0.7); EOS % 1.7 % (1.5-5.0); GRAN # 5.01 (1.4-6.5); GRAN % 70.1 % (50.0-68.0); LYMPH # 1.6 (1.2-3.4); LYMPH % 21.7 % (22.0-35.0); MEAN CELL VOLUME 86.8 fL (80.0-105.0); MEAN CORPUSCULAR HEMOGLOBIN 29.7 pg (25.0-35.0); MEAN CORPUSCULAR HGB CONC 34.2 g/dl (31.0-37.0); MONO # 0.5 (0.1-0.6); MONO % 6.4 % (1.0-6.0); PLATELET COUNT 134 10^3/uL (120.0-450.0); RBC 4.71 10^6/uL (3.5-6.1); WHITE BLOOD COUNT 7.2 10^3/ul (4.5-11.0)
[2016-12-17 13:01] LABS: ALB/GLOB RATIO 1.2 (1.1-1.8); ALBUMIN 3.9 g/dL (3.0-4.8); ALT/SGPT 43 U/L (7-56); AST/SGOT 27 U/L (15-59); BLOOD UREA NITROGEN 15 mg/dL (7-21); CALCIUM 8.6 mg/dL (8.4-10.5); GFR AFRICAN-AMERICAN > 60; GFR NON-AFRICAN AMERICAN > 60
[2016-12-17 14:18] VITALS: BP 180/76; TEMP 98.2; O2SAT 98
[2016-12-17 14:31] VITALS: PULSE 64
--- NOTE | 2016-12-17 14:34 | CT ---
PROCEDURE: CT NECK WITH CONTRAST HISTORY: soft tissue swelling under the jaw COMPARISON: None TECHNIQUE: CT of the neck with intravenous contrast. Coronal and sagittal reformats generated. Intravenous contrast dose: 100 cc of Omni 350 Radiation dose: DLP 460 mGy-cm This CT exam was performed using one or more of the following dose reduction techniques: Automated exposure control, adjustment of the mA and/or kV according to patient size, and/or use of iterative reconstruction technique. FINDINGS: NASOPHARYNX: Unremarkable. SUPRAHYOID NECK: Unremarkable oropharynx, oral cavity, parapharyngeal space and retropharyngeal space. INFRAHYOID NECK: Unremarkable larynx, hypopharynx, and supraglottic space. Vocal cords intact. MASS: None. GLANDS: Parotid and submandibular glands unremarkable. Normal size thyroid gland, without nodule. LYMPH NODES: Mildly enlarged lymph nodes are seen in the submandibular space an submental space. The largest node measures 11 mm. This adenopathy was not present on the previous exam. Findings are seen on axial image 46 and 42 series 2 CERVICAL SPINE: No fracture or focal lesion. VASCULAR STRUCTURES: Unremarkable. OTHER FINDINGS: None. IMPRESSION: Mildly enlarged lymph nodes are seen in the submandibular space an submental space. The largest node measures 11 mm. This adenopathy was not present on the previous exam
[2016-12-17] MEDS ORDERED: Amoxicillin-Clav 875-125 mg Tab PO STA (15:04)
== END 2016-12-17 15:46 | disposition home or self-care (01) ==
LOC: ED 11:15
DX: R59.1 Generalized enlarged lymph nodes (principal); I10 Essential (primary) hypertension
CPT/HCPCS: 70491; 80053; 84443; 85025; 96374; 99283; J1885; Q9967

== ENCOUNTER 2016-12-21 12:57 | Emergency (ER) | payer OTHER, MEDICARE ==
[2016-12-21 12:57] VITALS: PULSE 61; BMI 36.6
--- NOTE | 2016-12-21 13:36 | ED PDOC ---
Arrival/HPI - General Time Seen by Provider: 12/21/16 13:02 - History of Present Illness Narrative History of Present Illness (Text): 12/21/16 13:47 56yo with persistent painful palpable submandibular lymph nodes. Pt denies f/c, denies tristhmus, denies diff or pain with swallowing. No other complaints. States he is taking augmentin as prescribed. Reports recent dental work. Denies other complaints. Past Medical History - Provider Review Nursing Documentation Reviewed: Yes - Past History Past History: No Previous - Infectious Disease Hx of Infectious Diseases: None - Tetanus Immunization Tetanus Immunization: Unknown - Reproductive Currently : No - Cardiac Hx Atrial Fibrillation: Yes (states he was dx'ed in an er in [place]) - Pulmonary Hx Respiratory Disorders: Yes Hx Asthma: Yes Hx Sleep Apnea: Yes (cpap at night) - Neurological Hx Neurological Disorder: No - HEENT Hx HEENT Disorder: Yes (Wears glasses.) - Renal Hx Renal Disorder: No Hx Dialysis: No - Endocrine/Metabolic Hx Endocrine Disorders: No - Hematological/Oncological Hx Blood Disorders: No - Integumentary Hx Dermatological Disorder: Yes (s/p left knee replacement in 05/2013. Open wound.) - Musculoskeletal/Rheumatological Hx Musculoskeletal Disorders: Yes (States APPROX 12 back surgeries/4 cervical surgeries/spinal fusion sX.) Hx Back Pain: Yes Other/Comment: walks with cane - Gastrointestinal Hx Gastrointestinal Disorders: Yes Hx Gastroesophageal Reflux: Yes Other/Comment: esophagitis, duodenitis, gastrophoresis, colitis - Genitourinary/Gynecological Hx Genitourinary Disorders: Yes Hx Prostate Problems: Yes - Psychiatric Hx Psychophysiologic Disorder: Yes Hx Substance Use: No - Surgical History Hx Cardiac Catheterization: Yes (no stent placement) Hx Joint Replacement: Yes (Right hip,LEFT HIP, Left knee x 2.) Hx Musculoskeletal Surgery: Yes Hx Orthopedic Surgery: Yes (neck, left knee replacement x 2) Other/Comment: rt inguinla surgery 07/31/15. L knee tendon graft 07/2016 - Anesthesia Hx Anesthesia: Yes Hx Anesthesia Reactions: (DIFFICULT INTUBATION R/T NECK PROBLEMS) - Suicidal Assessment Feels Threatened In Home Enviroment: No Family/Social History Family/Social History: Unknown Family HX Smoking Status: Never Smoked Hx Alcohol Use: No Hx Substance Use: No Hx Substance Use Treatment: No Allergies/Home Meds Allergies/Adverse Reactions: Allergies strawberry Allergy (Intermediate, Verified 12/07/16 13:19) RASH tobramycin Allergy (Intermediate, Verified 12/07/16 13:19) DIZZINESS Home Medications: Home Meds Medication Instructions Recorded Confirmed Hydromorphone HCl [Dilaudid] 2 mg PO TID 09/06/14 12/17/16 Metoprolol Succinate [Toprol XL] 100 mg PO DAILY 10/12/14 12/17/16 Dicyclomine [Bentyl] 20 mg PO BID 10/16/15 12/17/16 Omeprazole [Prilosec] 40 mg PO QAM 10/16/15 12/17/16 Warfarin [Coumadin] 7 mg PO HS 01/14/16 12/17/16 Flecainide [Tambocor] 50 mg PO BID 03/17/16 12/17/16 Furosemide [Lasix] 40 mg PO BID 03/17/16 12/17/16 Cyclobenzaprine [Flexeril] 10 mg PO BID 08/21/16 12/17/16 Albuterol Sulfate [Proair 1 puff IH PRN PRN 10/31/16 12/17/16 Respiclick] Lidocaine [Lidocare] 2 each TD DAILY 10/31/16 12/17/16 Oxybutynin [Ditropan Tab] 10 mg PO DAILY 10/31/16 12/17/16 Losartan [Cozaar] 1 tab PO DAILY 12/17/16 12/17/16 Physical Exam - Physical Exam Narrative Physical Exam (Text): - Review of Systems Constitutional: Normal. absent: Fatigue, Weight Change, Fevers Eyes: Normal ENT: submandibular pain denies sore throat, denies tristhmus Respiratory: Normal. absent: SOB, Cough, Sputum Cardiovascular: absent: Chest Pain, Palpitations, Syncope Gastrointestinal: Normal. absent: Abdominal Pain, Diarrhea, Nausea, Vomiting Genitourinary: Normal. absent: Dysuria, Frequency, Hematuria Musculoskeletal: Normal. absent: Arthralgias, Back Pain, Neck Pain Skin: no rashes, no erythema Neurological: absent: Focal Weakness Endocrine: Normal Hemo/Lymphatic: Normal Psychiatric: No suicidal or homicidal ideations Physical exam Patient appears age appropriate in no distress, speaking full sentences without difficulty - Systems Exam Head: Present: Atraumatic, Normocephalic Pupils: Present: PERRL Extroacular Muscles: Present: EOMI Conjunctiva: Present: Normal Mouth: Present: Moist Mucous Membranes Neck: Present: Normal Range of Motion. No: MIDLINE TENDERNESS, Paraspinal Tenderness Respiratory/Chest: Present: Clear to Auscultation, Good Air Exchange. No: Respiratory Distress, Accessory Muscle Use, Tachypneic Cardiovascular: Present: Regular Rate and Rhythm, Normal S1, S2, Peripheal Pulses Present. No: Murmurs Abdomen: Present: Normal Bowel Sounds. No: Tenderness, Distention, Peritoneal Signs, Rebound, Guarding Back: Present: Normal Inspection. No: Midline Tenderness, Paraspinal Tenderness Upper Extremity: Present: Normal Inspection. No: Cyanosis, Edema Lower Extremity: Present: Normal Inspection. No: Edema Neurological: Present: GCS=15, Speech Normal, cranial nerves II through XII fully intact with no cerebellar abnormality, neurosensory fully intact. No focal neurological deficits. Skin: Present: Warm, Dry, Normal Color. No: Rashes Lymphatic: Present: OX3, NI, NC Psychiatric: Present: Alert, Oriented x 3, Normal Insight, Normal Concentration - Systems Exam Mouth: Present: Moist Mucous Membranes, Dry. No: Drooling, Trismus Pharnyx: Present: Normal, Other (no pain or floor of mouth elevation). No: ERYTHEMA, EXUDATE, TONSILS ENLARGED, Peritonsilar Swelling, Uvular Deviation, Muffled/Hoarse Voice, Strider, Soft Palate/Uvular Edema Neck: Present: Lymphadenopathy (submandibular, palpable, mildly tender LNs). No : Meningeal Signs, MIDLINE TENDERNESS, Paraspinal Tenderness, JVD Medical Decision Making ED Course and Treatment: 12/21/16 13:35 Impression: 56yo male with submandibular lymphadenopathy. pt instructed to f/u with PMD and specialist for further w/u Plan: -- Reassess and disposition Prior Visits: Notes and results from previous visits were reviewed. The patient was seen in the emergency department on 12/17/16 for a painful lump under his jaw. Patient was found to have a 11mm reactive lymph node and was discharged home on Augmentin. Progress Notes: Pt states he understands to return to the ER right away for new or worsening symptoms or for inability to f/u with PMD or specialist as instructed. Patient states that he fully agrees with and understands discharge instructions. States that he agrees with the plan and disposition. Verbalized and repeated discharge instructions and plan. I have given the patient opportunity to ask any additional questions. - Scribe Statement The provider has reviewed the documentation as recorded by the Scribe Gisela Mcdaniel Provider Scribe Attestation: All medical record entries made by the Scribe were at my direction and personally dictated by me. I have reviewed the chart and agree that the record accurately reflects my personal performance of the history, physical exam, medical decision making, and the department course for this patient. I have also personally directed, reviewed, and agree with the discharge instructions and disposition. Disposition/Present on Arrival - Present on Arrival Any Indicators Present on Arrival: No History of DVT/PE: Yes History of Uncontrolled Diabetes: No Urinary Catheter: No History Surgical Site Infection Following: None - Disposition Have Diagnosis and Disposition been Completed?: Yes Diagnosis: Lymphadenopathy of head and neck region Disposition: HOME/ ROUTINE Disposition Time: 13:45 Patient Plan: Discharge Condition: GOOD Discharge Instructions (ExitCare): Lymphadenopathy (ED) Additional Instructions: PLEASE RETURN TO THE EMERGENCY DEPARTMENT FOR NEW OR WORSENING SYMPTOMS. RETURN RIGHT AWAY IF YOU CANNOT FOLLOW UP WITH YOUR PRIMARY CARE DOCTOR, CLINIC, OR SPECIALIST IN 1-2 DAYS. Referrals: Raciel Rivera MD [Primary Care Provider] - Follow up with primary Last Valdez DO [Staff Provider] - Follow up with primary Milan Boudreaux DO [Staff Provider] - Follow up with primary Otoniel Bautista DO [Doctor Osteopathy] - Follow up with primary
[2016-12-21 14:16] VITALS: BP 178/89; PULSE 82; RESP 18; TEMP 97.9; O2SAT 98
== END 2016-12-21 14:23 | disposition home or self-care (01) ==
LOC: ED 12:57
DX: R59.1 Generalized enlarged lymph nodes (principal)

== ENCOUNTER 2017-01-13 04:14 | Emergency (ER) | payer OTHER, MEDICARE ==
[2017-01-13 04:14] VITALS: PULSE 61; BMI 36.6
[2017-01-13 04:31] VITALS: BP 161/99; PULSE 58; RESP 18; TEMP 97.6; O2SAT 99
[2017-01-13] MEDS ORDERED: DiphenhydrAMINE 50 mg/ml Inj IVP STA ×2 (04:38→04:40)
--- NOTE | 2017-01-13 04:38 | ED PDOC ---
Arrival/HPI <Bogdan Joseph - Last Filed: 01/13/17 05:39> - General Historian: Patient <Yaw Rudolph - Last Filed: 01/13/17 06:09> - General Chief Complaint: Allergic Reaction Time Seen by Provider: 01/13/17 04:18 - History of Present Illness Narrative History of Present Illness (Text): 01/13/17 04:38 56yo M with PMHx including chronic back and knee pain, GERD, HTN, multiple DVTs and PEs, A.Fib here for evaluation of possible allergic reaction. Patient states that he had [place] for dinner around 10PM last night, he woke up at 1AM this morning with "burning scalp". He states that his entire body started itching soon after and started to feel a bit short of breath so decided to come into the ER for further evaluation. He denies any Chest pain. Able to speak in full and complete sentences. No N/V/D. no abd pain. He does report that he had a procedure to remove his intra-abdominal thecal pain pump 2 weeks ago. He denies any other complaints. PMD: Michael PMHx: Asthma, Chronic Back and Knee pain, A.Fib, GERD, multiple DVTs and PEs, HTN PSHx: 12 back surgeries. Spinal fusion at multiple different levels Allergy: [place], Tobramycin (Yaw Rudolph) Past Medical History - Provider Review Nursing Documentation Reviewed: Yes - Past History Past History: No Previous - Infectious Disease Hx of Infectious Diseases: None - Tetanus Immunization Tetanus Immunization: Unknown - Reproductive Currently : No - Cardiac Hx Atrial Fibrillation: Yes (states he was dx'ed in an [place] in [place]) - Pulmonary Hx Respiratory Disorders: Yes Hx Asthma: Yes Hx Pulmonary Embolism: Yes (hx) Hx Sleep Apnea: Yes (cpap at night) - Neurological Hx Neurological Disorder: No - HEENT Hx HEENT Disorder: Yes (Wears glasses.) - Renal Hx Renal Disorder: No Hx Dialysis: No - Endocrine/Metabolic Hx Endocrine Disorders: No - Hematological/Oncological Hx Blood Disorders: No - Integumentary Hx Dermatological Disorder: Yes (s/p left knee replacement in 05/2013. Open wound.) - Musculoskeletal/Rheumatological Hx Musculoskeletal Disorders: Yes (States APPROX 12 back surgeries/4 cervical surgeries/spinal fusion sX.) Hx Back Pain: Yes Other/Comment: walks with cane - Gastrointestinal Hx Gastrointestinal Disorders: Yes Hx Gastroesophageal Reflux: Yes Other/Comment: esophagitis, duodenitis, gastrophoresis, colitis - Genitourinary/Gynecological Hx Genitourinary Disorders: Yes Hx Prostate Problems: Yes - Psychiatric Hx Psychophysiologic Disorder: Yes Hx Depression: Yes Hx Substance Use: No - Surgical History Hx Cardiac Catheterization: Yes (no stent placement) Hx Joint Replacement: Yes (Right hip,LEFT HIP, Left knee x 2.) Hx Musculoskeletal Surgery: Yes Hx Orthopedic Surgery: Yes (neck, left knee replacement x 2) Other/Comment: rt inguinla surgery 07/31/15. L knee tendon graft 07/2016/ left hip/liseth shoulders/lumbar - Anesthesia Hx Anesthesia: Yes Hx Anesthesia Reactions: (DIFFICULT INTUBATION R/T NECK PROBLEMS) - Suicidal Assessment Feels Threatened In Home Enviroment: No <Yaw Rudolph - Last Filed: 01/13/17 06:09> Family/Social History - Physician Review Nursing Documentation Reviewed: Yes Family/Social History: No Known Family HX Smoking Status: Never Smoked Hx Alcohol Use: No Hx Substance Use: No Hx Substance Use Treatment: No <Yaw Rudolph - Last Filed: 01/13/17 06:09> Allergies/Home Meds <Bogdan Joseph - Last Filed: 01/13/17 05:39> <Yaw Rudolph - Last Filed: 01/13/17 06:09> Allergies/Adverse Reactions: Allergies strawberry Allergy (Intermediate, Verified 01/13/17 04:25) RASH tobramycin Allergy (Intermediate, Verified 01/13/17 04:25) DIZZINESS Home Medications: Home Meds Medication Instructions Recorded Confirmed Hydromorphone HCl [Dilaudid] 2 mg PO TID 09/06/14 01/13/17 Metoprolol Succinate [Toprol XL] 100 mg PO QAM 10/12/14 01/13/17 Dicyclomine [Bentyl] 20 mg PO TID 10/16/15 01/13/17 Omeprazole [Prilosec] 40 mg PO QAM 10/16/15 01/13/17 Warfarin [Coumadin] 7 mg PO HS 01/14/16 01/13/17 Flecainide [Tambocor] 5 mg PO BID 03/17/16 01/13/17 Furosemide [Lasix] 40 mg PO BID 03/17/16 01/13/17 Albuterol Sulfate [Proair 1 puff IH PRN PRN 10/31/16 01/13/17 Respiclick] Oxybutynin [Ditropan Tab] 5 mg PO DAILY 10/31/16 01/13/17 Montelukast [Singulair] 10 mg PO DAILY 01/13/17 01/13/17 Review of Systems - Physician Review All systems were reviewed & negative as marked: Yes - Review of Systems Constitutional: absent: Fatigue, Fevers ENT: absent: Rhinorrhea Respiratory: SOB. absent: Cough, Wheezing Cardiovascular: absent: Chest Pain, Edema Gastrointestinal: absent: Abdominal Pain, Diarrhea, Nausea, Vomiting Genitourinary Male: absent: Dysuria Skin: Pruritis <Yaw Rudolph - Last Filed: 01/13/17 06:09> Physical Exam Vital Signs Reviewed: Yes Temperature: Afebrile Blood Pressure: Hypertensive Pulse: Regular Respiratory Rate: Normal Appearance: Positive for: Well-Appearing, Comfortable Mental Status: Positive for: Alert and Oriented X 3 - Systems Exam Head: Present: Atraumatic, Normocephalic Mouth: Present: Moist Mucous Membranes, Normal Tounge, Other (able to speak in full sentences). No: Drooling Pharnyx: Present: Normal Respiratory/Chest: Present: Clear to Auscultation, Good Air Exchange. No: Respiratory Distress, Accessory Muscle Use, Wheezes, Decreased Breath Sounds, Rhonchi Cardiovascular: Present: Normal S1, S2 Abdomen: Present: Other (multiple surgical scars noted). No: Tenderness, Distention Back: Present: Normal Inspection, Other (multiple surgical scars noted). No: CVA Tenderness Lower Extremity: Present: Normal Inspection. No: Edema, CALF TENDERNESS, Stephan' s Sign Neurological: Present: GCS=15 Skin: Present: Warm, Dry, Rashes (Diffuse truncal urticaria. ), Normal Color. No: Erythematous Psychiatric: Present: Alert, Oriented x 3 <Yaw Rudolph - Last Filed: 01/13/17 06:09> Vital Signs Temp Pulse Resp BP Pulse Ox 01/13/17 04:25 97.6 F 58 L 18 161/99 H 99 Medical Decision Making <Bogdan Joseph - Last Filed: 01/13/17 05:39> <Yaw Rudolph - Last Filed: 01/13/17 06:09> ED Course and Treatment: Patient Seen With Resident: In agreement with resident note which contains more details about the patient. Patient was seen and evaluated with resident. Came up with plan and treatment together. Patient is a 56 year old male who presents to the emergency department complaining of diffuse hives which presented around 1 am today. Will order Solumedrol, Benadryl, Toradol and evaluate. On reevaluation patient states he feels fine and is comfortable with discharge home. Stable for discharge. Advised to present to emergency department for new/ worsening symptoms and follow up with PMD within few days. (Bogdan Joseph) 01/13/17 04:54 56yo M with possible allergic reaction - Solumedrol IV - Benadryl IV - Toradol for chronic pain - reeval and dispo 01/13/17 05:56 Patient reevaluated. Feeling better. -Discharge home with Vistaril 25mg PO q8h for pruritis, Prednisone 60mg Daily for 5days. Patient is to follow up with his primary care physician within 3 days. Discussed plan with patient, all questions and concerns addressed. Patient understands and agrees with plan. (Yaw Rudolph) - Medication Orders Current Medication Orders: Discontinued Medications Diphenhydramine HCl (Benadryl) 25 mg IVP STAT STA Stop: 01/13/17 04:41 Last Admin: 01/13/17 05:08 Dose: 25 mg Ketorolac Tromethamine (Toradol) 30 mg IVP STAT STA Stop: 01/13/17 04:41 Last Admin: 01/13/17 05:09 Dose: 30 mg Methylprednisolone (Solu-Medrol) 125 mg IVP STAT STA Stop: 01/13/17 04:41 Last Admin: 01/13/17 05:09 Dose: 125 mg - PA / [employer] / Resident Statement / has reviewed & agrees with the documentation as recorded. / has examined the patient and agrees with the treatment plan. <Bogdan Joseph - Last Filed: 01/13/17 05:39> Disposition/Present on Arrival <Bogdan Joseph - Last Filed: 01/13/17 05:39> - Present on Arrival Any Indicators Present on Arrival: No History of DVT/PE: Yes History of Uncontrolled Diabetes: No Urinary Catheter: No History of Decub. Ulcer: No History Surgical Site Infection Following: None - Disposition Have Diagnosis and Disposition been Completed?: Yes Disposition Time: 05:59 Patient Plan: Discharge <Yaw Rudolph - Last Filed: 01/13/17 06:09> - Disposition Diagnosis: Allergic reaction Disposition: HOME/ ROUTINE Condition: GOOD Discharge Instructions (ExitCare): [place] (ED) Additional Instructions: 1. Follow up with your primary care physician in 3 days 2. Take prescriptions as prescribed 3. Return to the ER with any concerning or worsening symptoms Prescriptions: hydrOXYzine HCl [Atarax] 25 mg PO Q8H PRN #21 tab PRN Reason: Itching / Pruritus predniSONE [predniSONE Tab] 60 mg PO DAILY #15 tab
== END 2017-01-13 06:16 | disposition home or self-care (01) ==
LOC: ED 04:14
DX: L50.0 Allergic urticaria (principal)
CPT/HCPCS: 96374; 96375; 99283; J1200; J1885; J2930

== ENCOUNTER 2017-01-23 13:40 | Emergency (ER) | payer OTHER, MEDICARE ==
[2017-01-23 13:41] VITALS: PULSE 61; BMI 36.6
[2017-01-23 13:50] VITALS: O2SAT 99
[2017-01-23] MEDS ORDERED: Amoxicillin-Clav 875-125 mg Tab PO STA (14:41)
--- NOTE | 2017-01-23 14:48 | ED PDOC ---
Arrival/HPI - General Chief Complaint: Abnormal Skin Integrity Time Seen by Provider: 01/23/17 14:25 Historian: Patient, Spouse - History of Present Illness Narrative History of Present Illness (Text): 01/23/17 14:33 This 56yo M with PMHx including chronic back and knee pain, GERD, HTN, multiple DVTs and PEs, A.Fib here for evaluation of left lower leg rash, and itching x 7- 10 days. Patient stated he was evaluated by AUTUM[employer] Ochoa at his doctor 's office x 2-3 days ago. Patient was given a referral to have a Venous Doppler Left Lower Extremity. He said ultrasound was negative. Patient denies other complains. Denies fever, sob, cp, abdominal pain, no groin pain, or urinary Time/Duration: 1 week Context: Home Past Medical History - Provider Review Nursing Documentation Reviewed: Yes - Past History Past History: No Previous - Infectious Disease Hx of Infectious Diseases: None - Tetanus Immunization Tetanus Immunization: Unknown - Reproductive Currently : No - Cardiac Hx Atrial Fibrillation: Yes (states he was dx'ed in an er in [place]) - Pulmonary Hx Respiratory Disorders: Yes Hx Asthma: Yes Hx Pulmonary Embolism: Yes (hx) Hx Sleep Apnea: Yes (cpap at night) - Neurological Hx Neurological Disorder: No - HEENT Hx HEENT Disorder: Yes (Wears glasses.) - Renal Hx Renal Disorder: No Hx Dialysis: No - Endocrine/Metabolic Hx Endocrine Disorders: No - Hematological/Oncological Hx Blood Disorders: No - Integumentary Hx Dermatological Disorder: Yes (s/p left knee replacement in 05/2013. Open wound.) - Musculoskeletal/Rheumatological Hx Musculoskeletal Disorders: Yes (States APPROX 12 back surgeries/4 cervical surgeries/spinal fusion sX.) Hx Back Pain: Yes Other/Comment: walks with cane - Gastrointestinal Hx Gastrointestinal Disorders: Yes Hx Gastroesophageal Reflux: Yes Other/Comment: esophagitis, duodenitis, gastrophoresis, colitis - Genitourinary/Gynecological Hx Genitourinary Disorders: Yes Hx Prostate Problems: Yes - Psychiatric Hx Psychophysiologic Disorder: Yes Hx Depression: Yes Hx Substance Use: No - Surgical History Hx Cardiac Catheterization: Yes (no stent placement) Hx Joint Replacement: Yes (Right hip,LEFT HIP, Left knee x 2.) Hx Musculoskeletal Surgery: Yes Hx Orthopedic Surgery: Yes (neck, left knee replacement x 2) Other/Comment: rt inguinla surgery 07/31/15. L knee tendon graft 07/2016/ left hip/liseth shoulders/lumbar - Anesthesia Hx Anesthesia: Yes Hx Anesthesia Reactions: (DIFFICULT INTUBATION R/T NECK PROBLEMS) - Suicidal Assessment Feels Threatened In Home Enviroment: No Family/Social History - Physician Review Nursing Documentation Reviewed: Yes Family/Social History: No Known Family HX Smoking Status: Never Smoked Hx Alcohol Use: No Hx Substance Use: No Hx Substance Use Treatment: No Allergies/Home Meds Allergies/Adverse Reactions: Allergies strawberry Allergy (Intermediate, Verified 01/23/17 13:50) RASH tobramycin Allergy (Intermediate, Verified 01/23/17 13:50) DIZZINESS Home Medications: Home Meds Medication Instructions Recorded Confirmed Hydromorphone HCl [Dilaudid] 2 mg PO TID 09/06/14 01/23/17 Metoprolol Succinate [Toprol XL] 100 mg PO QAM 10/12/14 01/23/17 Dicyclomine [Bentyl] 20 mg PO TID 10/16/15 01/23/17 Omeprazole [Prilosec] 40 mg PO QAM 10/16/15 01/23/17 Warfarin [Coumadin] 6 mg PO HS 01/14/16 01/23/17 Flecainide [Tambocor] 5 mg PO BID 03/17/16 01/23/17 Furosemide [Lasix] 40 mg PO BID 03/17/16 01/23/17 Albuterol Sulfate [Proair 1 puff IH PRN PRN 10/31/16 01/23/17 Respiclick] Oxybutynin [Ditropan Tab] 10 mg PO DAILY 10/31/16 01/23/17 Montelukast [Singulair] 10 mg PO DAILY 01/13/17 01/23/17 Cefzil 500 mg PO BID 01/23/17 01/23/17 Ketoprofen Cream 01/23/17 Losartan Potassium 50 mg PO DAILY 01/23/17 01/23/17 Metoprolol Tartrate [Lopressor] 50 mg PO HS 01/23/17 01/23/17 Review of Systems - Review of Systems Constitutional: Normal. absent: Fatigue, Weight Change, Fevers Eyes: Normal ENT: Normal Respiratory: Normal. absent: SOB, Cough, Sputum, Wheezing Cardiovascular: Normal. absent: Chest Pain, Palpitations Gastrointestinal: Normal. absent: Abdominal Pain, Nausea, Vomiting Genitourinary Male: Normal. absent: Dysuria, Frequency, Hematuria Musculoskeletal: Normal Skin: Rash Neurological: Normal Endocrine: Normal Hemo/Lymphatic: Normal Psychiatric: Normal Physical Exam Vital Signs Temp Pulse Resp BP Pulse Ox 01/23/17 13:46 98.5 F 55 L 16 182/80 H 99 Temperature: Afebrile Blood Pressure: Normal Pulse: Regular Respiratory Rate: Normal Appearance: Positive for: Well-Appearing, Non-Toxic, Comfortable Pain Distress: None Mental Status: Positive for: Alert and Oriented X 3 - Systems Exam Head: Present: Atraumatic, Normocephalic Pupils: Present: PERRL Extroacular Muscles: Present: EOMI Conjunctiva: Present: Normal Mouth: Present: Moist Mucous Membranes Neck: Present: Normal Range of Motion Respiratory/Chest: Present: Clear to Auscultation, Good Air Exchange. No: Respiratory Distress, Accessory Muscle Use Cardiovascular: Present: Regular Rate and Rhythm, Normal S1, S2. No: Murmurs Abdomen: Present: Normal Bowel Sounds. No: Tenderness, Distention, Peritoneal Signs Back: Present: Normal Inspection Upper Extremity: Present: Normal Inspection, Normal ROM, Capillary Refill < 2s. No: Cyanosis, Edema Lower Extremity: Present: NORMAL PULSES, Normal ROM, Erythema, Temperature Abnormalties, Neurovascularly Intact, Capillary Refill < 2 s, Other ((+) mild redness on anterior lower leg. No edema, or abscess). No: Edema Neurological: Present: GCS=15, CN II-XII Intact, Speech Normal, Normal Sensory Function, Normal Cerebellar Funct, Gait Normal Skin: Present: Warm, Dry, Normal Color. No: Rashes Lymphatic: No: Inguinal Adenopathy Psychiatric: Present: Alert, Oriented x 3, Normal Insight, Normal Concentration Medical Decision Making ED Course and Treatment: 01/23/17 15:02 I spoke with Ruma from [facility], regarding patient stating he had a Venous Doppler Left Lower Extremity. She stated patient did have the ultrasound yesterday. She said she will fax report. I received the Venous Doppler Of Lower Extremity by fax. The report was read by Dr. Juliana Martínez MD. Her impression as follow: No evidence of deep vein Thrombosis in the left lower extremity, signed on 01-22-2017 01/23/17 15:06 Re-evaluation. Patient feels better. Discussed results and plan with patient who expresses understanding. All questions answered and there is agreement with the plan to discharge home with instructions. Patient stable for discharge. Return if symptoms persist or worsen. Patient remained well during the course of ED visit. Patient is afebrile. Patient was recommended to take Augmentin twice daily for 10 days. To follow up with his PMD in 2 days. To return to emergency if symptoms worsen. Re-evaluation Time: 15:06 Reassessment Condition: Re-examined, Improved - Medication Orders Current Medication Orders: Discontinued Medications Amoxicillin/Clavulanate Potassium (Augmentin 875 Mg-125 Mg Tab) 1 tab PO STAT STA PRN Reason: Protocol Stop: 01/23/17 14:42 Hydroxyzine Pamoate (Vistaril) 50 mg PO STAT STA PRN Reason: Protocol Stop: 01/23/17 14:42 Disposition/Present on Arrival - Present on Arrival Any Indicators Present on Arrival: No History of DVT/PE: Yes History of Uncontrolled Diabetes: No Urinary Catheter: No History of Decub. Ulcer: No History Surgical Site Infection Following: None - Disposition Have Diagnosis and Disposition been Completed?: Yes Diagnosis: Cellulitis Disposition: HOME/ ROUTINE Disposition Time: 15:08 Patient Plan: Discharge Condition: GOOD Discharge Instructions (ExitCare): Cellulitis (ED) Additional Instructions: Call Dr. Awan PMD, office for follow up visit in 2 days. Take medication as instructed with food. Apply calamide lotion for itching as needed on affected area. Clean the left lower leg with soap and water, and avoid scratching skin. Return to emergency if rash worsen, fever or worsen symptoms. Prescriptions: Amoxicillin/Clavulanate [Augmentin 875 MG-125 MG] 1 tab PO BID #20 tab hydrOXYzine Pamoate [Vistaril] 25 mg PO TID PRN #30 cap PRN Reason: Itching / Pruritus Referrals: Raciel Rivera MD [Family Provider] - Follow up with primary Forms: [employer] ([place])
[2017-01-23 15:25] VITALS: BP 160/98; PULSE 88; RESP 19; TEMP 98.6
== END 2017-01-23 15:29 | disposition home or self-care (01) ==
LOC: ED 13:40
DX: L03.116 Cellulitis of left lower limb (principal)
CPT/HCPCS: 99282; Q0177

== ENCOUNTER 2017-03-12 15:02 | Emergency (ER) | payer OTHER, MEDICARE ==
[2017-03-12 15:04] VITALS: PULSE 61
[2017-03-12 15:15] VITALS: BMI 38.0
--- NOTE | 2017-03-12 15:19 | ED PDOC ---
Arrival/HPI - General Time Seen by Provider: 03/12/17 15:18 Historian: Patient - History of Present Illness Narrative History of Present Illness (Text): 03/12/17 15:18 This 56 yo Male with PMHx including chronic back and knee pain, GERD, HTN, multiple DVTs and PEs, A.Fib, presents to this ED c/o left sided neck pain x 2 weeks. Patient stated he saw Dr. Kimball this week, who ordered an out-patient CT of Cervical Spine. Patient had CT scan yesterday which showed chronic changes, but not acute findings, as per patient. Patient stated pain when he moves his neck. Patient denies fever, LYN, sob, cp, trauma, heavy lifting, rash , cms, n/v, weakness, paresthesias, cp, sob, abdominal pain, or abnormal gait. Time/Duration: Other (2 weeks) Quality: Aching Context: Home Past Medical History - Provider Review Nursing Documentation Reviewed: Yes - Past History Past History: No Previous - Infectious Disease Hx of Infectious Diseases: None - Tetanus Immunization Tetanus Immunization: Unknown - Reproductive Currently : No - Cardiac Hx Atrial Fibrillation: Yes (states he was dx'ed in an er in [place]) - Pulmonary Hx Respiratory Disorders: Yes Hx Asthma: Yes Hx Pulmonary Embolism: Yes (hx) Hx Sleep Apnea: Yes (cpap at night) - Neurological Hx Neurological Disorder: No - HEENT Hx HEENT Disorder: Yes (Wears glasses.) - Renal Hx Renal Disorder: No Hx Dialysis: No - Endocrine/Metabolic Hx Endocrine Disorders: No - Hematological/Oncological Hx Blood Disorders: No - Integumentary Hx Dermatological Disorder: Yes (s/p left knee replacement in 05/2013. Open wound.) - Musculoskeletal/Rheumatological Hx Musculoskeletal Disorders: Yes (States APPROX 12 back surgeries/4 cervical surgeries/spinal fusion sX.) Hx Back Pain: Yes Other/Comment: walks with cane - Gastrointestinal Hx Gastrointestinal Disorders: Yes Hx Gastroesophageal Reflux: Yes Other/Comment: esophagitis, duodenitis, gastrophoresis, colitis - Genitourinary/Gynecological Hx Genitourinary Disorders: Yes Hx Prostate Problems: Yes - Psychiatric Hx Psychophysiologic Disorder: Yes Hx Depression: Yes Hx Substance Use: No - Surgical History Hx Cardiac Catheterization: Yes (no stent placement) Hx Joint Replacement: Yes (Right hip,LEFT HIP, Left knee x 2.) Hx Musculoskeletal Surgery: Yes Hx Orthopedic Surgery: Yes (neck, left knee replacement x 2) Other/Comment: rt inguinla surgery 07/31/15. L knee tendon graft 07/2016/ left hip/liseth shoulders/lumbar - Anesthesia Hx Anesthesia: Yes Hx Anesthesia Reactions: (DIFFICULT INTUBATION R/T NECK PROBLEMS) - Suicidal Assessment Feels Threatened In Home Enviroment: No Family/Social History - Physician Review Nursing Documentation Reviewed: Yes Family/Social History: Other (non-contributory) Smoking Status: Never Smoked Hx Alcohol Use: No Hx Substance Use: No Hx Substance Use Treatment: No Allergies/Home Meds Allergies/Adverse Reactions: Allergies strawberry Allergy (Intermediate, Verified 03/12/17 15:15) RASH tobramycin Allergy (Intermediate, Verified 03/12/17 15:15) DIZZINESS Home Medications: Home Meds Medication Instructions Recorded Confirmed Hydromorphone HCl [Dilaudid] 2 mg PO TID 09/06/14 03/12/17 Metoprolol Succinate [Toprol XL] 100 mg PO QAM 10/12/14 03/12/17 Dicyclomine [Bentyl] 20 mg PO TID 10/16/15 03/12/17 Omeprazole [Prilosec] 40 mg PO QAM 10/16/15 03/12/17 Warfarin [Coumadin] 6 mg PO HS 01/14/16 03/12/17 Flecainide [Tambocor] 5 mg PO BID 03/17/16 03/12/17 Furosemide [Lasix] 40 mg PO BID 03/17/16 03/12/17 Albuterol Sulfate [Proair 1 puff IH PRN PRN 10/31/16 03/12/17 Respiclick] Oxybutynin [Ditropan Tab] 10 mg PO DAILY 10/31/16 03/12/17 Montelukast [Singulair] 10 mg PO DAILY 01/13/17 03/12/17 Cefzil 500 mg PO BID 01/23/17 03/12/17 Losartan Potassium 50 mg PO DAILY 01/23/17 03/12/17 Metoprolol Tartrate [Lopressor] 50 mg PO HS 01/23/17 03/12/17 Review of Systems - Review of Systems Constitutional: Normal. absent: Fatigue, Weight Change, Fevers, Night Sweats Eyes: Normal. absent: Vision Changes ENT: Normal Respiratory: Normal. absent: SOB, Cough, Sputum, Wheezing Cardiovascular: Normal. absent: Chest Pain, Palpitations, Edema, Calf Pain, VARGAS , Orthopnea, Syncope Gastrointestinal: Normal. absent: Abdominal Pain, Nausea, Vomiting Genitourinary Male: Normal. absent: Dysuria, Frequency, Hematuria Musculoskeletal: Neck Pain. absent: Arthralgias, Back Pain, Joint Swelling Skin: Normal. absent: Rash Neurological: Normal. absent: Headache, Dizziness, Focal Weakness, Gait Changes , Speech Changes, Facial Droop, Disequilibrium, Seizure Endocrine: Normal Hemo/Lymphatic: Normal Psychiatric: Normal Physical Exam Vital Signs Temp Pulse Resp BP Pulse Ox 03/12/17 15:26 97.8 F 67 20 186/114 H 98 Temperature: Afebrile Blood Pressure: Normal Pulse: Regular Respiratory Rate: Normal Appearance: Positive for: Well-Appearing, Non-Toxic, Comfortable Pain Distress: Mild Mental Status: Positive for: Alert and Oriented X 3 - Systems Exam Head: Present: Atraumatic, Normocephalic Pupils: Present: PERRL Extroacular Muscles: Present: EOMI Conjunctiva: Present: Normal Mouth: Present: Moist Mucous Membranes Neck: Present: Normal Range of Motion, Paraspinal Tenderness (mild left paravertebral muscle tenderness. Mild left trapezius tenderness. No bony tenderness. No vertebral point tenderness. No vertebral step off). No: Meningeal Signs, MIDLINE TENDERNESS Respiratory/Chest: Present: Clear to Auscultation, Good Air Exchange. No: Respiratory Distress, Accessory Muscle Use, Wheezes, Retracting, Rhonchi, Tachypneic Cardiovascular: Present: Regular Rate and Rhythm, Normal S1, S2. No: Murmurs Abdomen: Present: Normal Bowel Sounds. No: Tenderness, Distention, Peritoneal Signs Back: Present: Normal Inspection Upper Extremity: Present: Normal Inspection. No: Cyanosis, Edema Lower Extremity: Present: Normal Inspection. No: Edema Neurological: Present: GCS=15, CN II-XII Intact, Speech Normal Skin: Present: Warm, Dry, Normal Color. No: Rashes Psychiatric: Present: Alert, Oriented x 3, Normal Insight, Normal Concentration Medical Decision Making ED Course and Treatment: 03/12/17 15:41 Re-evaluation. Patient feels better. Discussed results and plan with patient who expresses understanding. All questions answered and there is agreement with the plan to discharge home with instructions. Patient stable for discharge. Return if symptoms persist or worsen. Patient was recommended to f/u Dr. Kimball and DR. Chasity Murillo who has been managing chronic pain in 1-2 days. Patient noted he had a negative CT cervical spine, with chronic changes. I reviewed [facility], in which patient has been prescribed every month Dilaudid 2 mg tabd #120 tabs, and sometimes Clonazepam 0.5 mg tab #30 tabs Re-evaluation Time: 15:43 Reassessment Condition: Re-examined, Improved - Medication Orders Current Medication Orders: Discontinued Medications Cyclobenzaprine HCl (Flexeril) 10 mg PO STAT STA Stop: 03/12/17 15:27 Last Admin: 03/12/17 15:41 Dose: 10 mg Ketorolac Tromethamine (Toradol) 30 mg IM STAT STA Stop: 03/12/17 15:26 Last Admin: 03/12/17 15:40 Dose: 30 mg MAR Pain Assessment Document 03/12/17 15:40 CAST (Rec: 03/12/17 15:[id number]) Pain Reassessment Is this a pain reassessment? No Sleep Is patient sleeping during reassessment? No Presence of Pain Presence of Pain Yes Pain Scale Used Pain Scale Used Numeric Location Pain Location Body Site Neck Description Description Constant Intensity of Pain at present 10 Pain Behavior Moaning Facial Grimacing Aggravating Factors Changing Position Alleviating Factors/Management Medication Techniques Alleviating Factors Medication IM Administration Charges Document 03/12/17 15:40 [email or web address] (Rec: 03/12/17 15:[id number]) Injection Site MAR Injection Site Left Deltoid Charges for Administration # of IM Administrations 1 Disposition/Present on Arrival - Present on Arrival Any Indicators Present on Arrival: No History of DVT/PE: Yes History of Uncontrolled Diabetes: No Urinary Catheter: No History Surgical Site Infection Following: None - Disposition Have Diagnosis and Disposition been Completed?: Yes Diagnosis: Chronic neck pain Disposition: HOME/ ROUTINE Disposition Time: 15:45 Patient Plan: Discharge Condition: GOOD Discharge Instructions (ExitCare): Cervical Sprain (ED) Additional Instructions: Call Dr. Kimball for follow up visit in [address] Chasity Murillo regarding your chronic pain management in 1-2 days. Continue with home Dilaudid as recommended by your doctor Referrals: Raciel Rivera MD [Primary Care Provider] - Follow up with primary Chasity Murillo APN, APN [Advanced Practice Nurse] - Follow up with primary
[2017-03-12 15:28] VITALS: O2SAT 98
[2017-03-12 16:04] VITALS: BP 174/89; PULSE 98; RESP 18; TEMP 66
== END 2017-03-12 16:04 | disposition home or self-care (01) ==
LOC: ED 15:02
DX: M54.2 Cervicalgia (principal); G89.29 Other chronic pain
CPT/HCPCS: 96372; 99283; J1885

== ENCOUNTER 2017-04-15 06:33 | Day surgery (SDC) | payer OTHER, MEDICARE ==
[2017-04-05 10:23] VITALS: BMI 36.6
[2017-04-15] MEDS ORDERED: Absorbable Gelatin Sponge Size 12-7 ONE (07:23)
[2017-04-15] MEDS ORDERED: Lidocaine 1% w Epi 1:100,000 Inj ONE (07:24)
[2017-04-15] MEDS ORDERED: Liquid Adhesive TOP ONE (07:24)
[2017-04-15] MEDS ORDERED: Lidocaine 1% Inj (20ml) ONE ×2 (07:24→08:01)
[2017-04-15] MEDS ORDERED: Midazolam 2 MG/2 ML VIAL ONE (07:37)
[2017-04-15] MEDS ORDERED: Propofol 10 mg/ml Inj (20 ML) ONE (07:54)
[2017-04-15] MEDS ORDERED: Rocuronium 10 mg/ml (5 ml) ONE (07:54)
[2017-04-15] MEDS ORDERED: ePHEDrine 50 mg/ml Inj ONE (08:20)
[2017-04-15] MEDS ORDERED: Ciprofloxacin/Dexamethasone OTIC SUSP ONE (08:21)
[2017-04-15] MEDS ORDERED: Neostigmine Methylsulfate 3mg/3ml Syringe IV ONE (08:31)
[2017-04-15] MEDS ORDERED: Sodium Chloride 0.9% 1,000 ML IV SCH (09:00)
[2017-04-15 09:56] VITALS: BP 180/83; PULSE 64; RESP 20; TEMP 97.6; O2SAT 94
[2017-04-15] MEDS ORDERED: HYDROmorphone 1 mg/ml ISec IVP STA (10:50)
[2017-04-15] MEDS ORDERED: HYDROmorphone 0.5 mg/0.5 ml ISec ONE (10:55)
--- NOTE | 2017-04-16 08:10 | OP ---
Dr. Badlemar Gracia dictating a brief OP note on behalf of Dr. Otoniel Bautista DO. PROCEDURE DATE: 04/15/2017 PREOPERATIVE DIAGNOSIS: Chronic serous otitis media. POSTOPERATIVE DIAGNOSIS: Chronic serous otitis media. PROCEDURE: Removal of myringotomy tubes with myringoplasty. SURGEON: Dr. Otoniel Bautista. [employer] DEVELOPER: Dr. Gracia. TYPE OF ANESTHESIA: General endotracheal tube anesthesia. ANESTHESIA ADMINISTERED BY: General endotracheal tube anesthesia. ESTIMATED BLOOD LOSS: Minimal. FLUIDS: 1 liter normal saline. SPECIMEN: No specimen. COMPLICATIONS: No complications. HISTORY OF PRESENT ILLNESS: This is a 56-year-old male with a past medical history of chronic otitis media who had tubes placed back in August, kept getting recurrent infections, here for removal of tubes and myringoplasty to repair the perforated eardrum. PAST MEDICAL HISTORY: Atrial fibrillation, hypertension, obstructive sleep apnea and chronic ear infections. MEDICINES: None. ALLERGIES: TO STRAWBERRIES AND TOBRAMYCIN. PROCEDURE IN DETAIL: On 04/15/2017, the patient was brought into the operating room and placed on the operating room table in a supine position. At this point, general endotracheal tube anesthesia was induced and a time-out was called confirming the proper patient and procedure. Following this, patient was prepped and draped in the usual sterile fashion for the operation. The left ear was examined using a 250 mm lens operating microscope with an ear speculum. The external auditory canal was gently debrided along visualization of the tympanic membrane. The tympanic membrane was visualized to have a straight tube in the posterior inferior quadrant. An alligator was used to remove the tube gently, no bleeding was appreciated. Decision was made to use a pick to roughen up the edges of the perforation and a small piece of Steri-Strip was applied to the perforated area. Five drops of Ciprodex were placed into the external auditory canal. Cotton ball was used to place in the ear canal. At this point, the attention was turned to the right ear. The right ear was examined with a 250 mm lens operating microscope with an ear speculum. The external auditory canal was gently debrided to allow visualization of the tympanic membrane. A T-tube was appreciated in the posterior inferior quadrant of the tympanic membrane. With an alligator, the T-tube was grasped and gently removed from the tympanic membrane. Pick was used to roughen up the edges of the perforation. At this point, a small piece of the Steri-Strip was placed onto the perforated area and Ciprodex drops were placed within the external auditory canal. A cotton ball was placed in the ear. The patient tolerated the procedure well. The patient was awoke from anesthesia, extubated and transferred to the PACU in stable condition. Dr. Bautista was present and scrubbed for the entirety of the procedure. Baldemar Gracia DO Otoniel Bautista DO
== END 2017-04-15 11:30 | disposition home or self-care (01) ==
LOC: SDS 06:33
PROVIDERS: ATTEND Otolaryngology
DX: H65.23 Chronic serous otitis media, bilateral (principal); H72.91 Unspecified perforation of tympanic membrane, right ear; I48.91 Unspecified atrial fibrillation; I10 Essential (primary) hypertension; G47.33 Obstructive sleep apnea (adult) (pediatric)
CPT/HCPCS: 69424; 69620; J0690; J1170 ×2; J2250; J2405; J2704; J2710; J3010; J7040

== ENCOUNTER 2017-04-26 12:27 | Emergency (ER) | payer OTHER, MEDICARE ==
[2017-04-26 12:28] VITALS: PULSE 61; BMI 38.0
[2017-04-26 12:39] VITALS: BP 184/94; PULSE 53; RESP 16; TEMP 97.7; O2SAT 98
[2017-04-26] MEDS ORDERED: Alum-Mag Hydrox-Simethicone Susp (30 mL) PO STA (13:01)
--- NOTE | 2017-04-26 13:07 | ED PDOC ---
Arrival/HPI - General Chief Complaint: Abdominal Pain Time Seen by Provider: 04/26/17 12:52 Historian: Patient - History of Present Illness Narrative History of Present Illness (Text): 04/26/17 12:59 A 57 year old male presents to the emergency department complaining of abdominal discomfort for the past few days. Patient reports periumbilical pain with associated nausea. He reports that the pain is worse with eating. He reports that 2 days ago he finished a course of augmentin and is wondering if this could be the cause of the pain. Reports some diarrhea. Denies chest pain , shortness of breath, fever, vomiting, dysuria, hematuria. PMD: Dr. Rivera 04/26/17 17:09 04/26/17 17:13 Time/Duration: Other (few days) Symptom Course: Unchanged Quality: Other Context: Home Past Medical History - Provider Review Nursing Documentation Reviewed: Yes - Past History Past History: No Previous - Infectious Disease Hx of Infectious Diseases: None - Tetanus Immunization Tetanus Immunization: Unknown - Reproductive Currently : No - Cardiac Hx Hypertension: Yes - Pulmonary Hx Respiratory Disorders: Yes Hx Asthma: Yes Hx Pulmonary Embolism: Yes (hx) Hx Sleep Apnea: Yes (cpap at night) - Neurological Hx Paralysis: No - HEENT Hx HEENT Disorder: Yes (Wears glasses.) Other/Comment: RECENT MIDDLE EAR INFECTION - Renal Hx Renal Disorder: No Hx Dialysis: No - Endocrine/Metabolic Hx Endocrine Disorders: No - Hematological/Oncological Hx Blood Transfusions: No Hx Blood Transfusion Reaction: No - Integumentary Hx Dermatological Disorder: Yes (s/p left knee replacement in 05/2013. Open wound.) - Musculoskeletal/Rheumatological Hx Musculoskeletal Disorders: Yes Hx Back Pain: Yes - Gastrointestinal Hx Gastrointestinal Disorders: Yes Hx Gastroesophageal Reflux: Yes Other/Comment: esophagitis, duodenitis, gastrophoresis, colitis - Genitourinary/Gynecological Hx Genitourinary Disorders: Yes Hx Prostate Problems: Yes - Psychiatric Hx Substance Use: No - Surgical History Hx Cardiac Catheterization: Yes (no stent placement) Hx Joint Replacement: Yes (Right hip,LEFT HIP, Left knee x 2.) Hx Musculoskeletal Surgery: Yes Hx Orthopedic Surgery: Yes (neck, left knee replacement x 2) Other/Comment: rt inguinla surgery 07/31/15. L knee tendon graft 07/2016/ left hip/liseth shoulders/lumbar - Anesthesia Hx Anesthesia Reactions: (DIFFICULT INTUBATION R/T NECK PROBLEMS) Hx Malignant Hyperthermia: No - Suicidal Assessment Feels Threatened In Home Enviroment: No Family/Social History - Physician Review Nursing Documentation Reviewed: Yes Family/Social History: No Known Family HX Smoking Status: Never Smoked Hx Alcohol Use: No Hx Substance Use: No Hx Substance Use Treatment: No Allergies/Home Meds Allergies/Adverse Reactions: Allergies strawberry Allergy (Intermediate, Verified 04/26/17 12:30) RASH tobramycin Allergy (Intermediate, Verified 04/26/17 12:30) VERTIGO/RASH Home Medications: Home Meds Medication Instructions Recorded Confirmed Hydromorphone HCl [Dilaudid] 2 mg PO TID PRN 09/06/14 04/26/17 Metoprolol Succinate [Toprol XL] 100 mg PO QAM 10/12/14 04/26/17 Dicyclomine [Bentyl] 20 mg PO TID 10/16/15 04/26/17 Omeprazole [Prilosec] 40 mg PO QAM 10/16/15 04/26/17 Warfarin [Coumadin] 6 mg PO HS 01/14/16 04/26/17 Flecainide [Tambocor] 5 mg PO BID 03/17/16 04/26/17 Furosemide [Lasix] 40 mg PO QAM 03/17/16 04/26/17 Albuterol Sulfate [Proair 1 puff IH 10/31/16 04/26/17 Respiclick] Oxybutynin [Ditropan Tab] 10 mg PO QAM 10/31/16 04/26/17 Montelukast [Singulair] 10 mg PO QPM 01/13/17 04/26/17 Losartan Potassium 50 mg PO QAM 01/23/17 04/26/17 Metoprolol Tartrate [Lopressor] 50 mg PO HS 01/23/17 04/26/17 Compound Ketoprofen Menthol Cream 1 appl TOP TID 04/05/17 04/26/17 Latanoprost 0.005% Opht [XALATAN 1 drp BOTHEYES HS 04/05/17 04/26/17 2.5 Ml] Lidocaine 5% [Lidoderm] 1 patch TOP DAILY 04/05/17 04/26/17 Review of Systems - Physician Review All systems were reviewed & negative as marked: Yes - Review of Systems Constitutional: absent: Fevers, Night Sweats ENT: Rhinorrhea (clear) Respiratory: absent: SOB, Cough, Sputum, Wheezing Cardiovascular: absent: Chest Pain Gastrointestinal: Abdominal Pain, Diarrhea, Nausea. absent: Constipation, Vomiting Genitourinary Male: absent: Dysuria Musculoskeletal: absent: Back Pain Neurological: absent: Headache, Dizziness, Focal Weakness, Gait Changes Physical Exam Vital Signs Reviewed: Yes Vital Signs Temp Pulse Resp BP Pulse Ox 04/26/17 12:33 97.7 F 53 L 16 184/94 H 98 Temperature: Afebrile Blood Pressure: Hypertensive Pulse: Regular Respiratory Rate: Normal Appearance: Positive for: Well-Appearing, Non-Toxic, Comfortable Pain Distress: None Mental Status: Positive for: Alert and Oriented X 3 - Systems Exam Head: Present: Atraumatic, Normocephalic Pupils: Present: PERRL Extroacular Muscles: Present: EOMI Conjunctiva: Present: Normal Ears: Present: Normal, NORMAL TM, Normal Canal. No: Erythema, TM Bulging, Fluid , TM Perf Mouth: Present: Moist Mucous Membranes Neck: Present: Normal Range of Motion Respiratory/Chest: Present: Clear to Auscultation, Good Air Exchange. No: Respiratory Distress, Accessory Muscle Use Cardiovascular: Present: Regular Rate and Rhythm, Normal S1, S2. No: Murmurs Abdomen: Present: Normal Bowel Sounds. No: Tenderness, Distention, Peritoneal Signs Back: Present: Normal Inspection Upper Extremity: Present: Normal Inspection. No: Cyanosis, Edema Lower Extremity: Present: Normal Inspection. No: Edema Neurological: Present: GCS=15, CN II-XII Intact, Speech Normal Skin: Present: Warm, Dry, Normal Color. No: Rashes Psychiatric: Present: Alert, Oriented x 3, Normal Insight, Normal Concentration Medical Decision Making ED Course and Treatment: 04/26/17 12:59 Impression: A 57 year old male with abdominal discomfort. Patient notes nausea and diarrhea. Patient recently on antibiotics. Soft NT/ND abdomen. Plan: -- Labs -- Urinalysis -- Maalox and Pepcid -- Reassess and disposition Progress Notes: 04/26/17 14:46 EKG shows NSR at 51bpm with RBBB and LVH, non-specific st changes, unchanged from pior on 04/04/17. Labs grossly normal. Feels better after pepcid and maalox. Will po challenge. On reevaluation, patient is pain free and tolerating po. Requesting dc. Instructed to follow-up with GI for further evaluation. 04/26/17 17:13 - Lab Interpretations Lab Results: 04/26/17 13:30 04/26/17 13:30 Lab Results 04/26/17 13:30: Sodium 143, Potassium 3.6, Chloride 109 H, Carbon Dioxide 28, Anion Gap 10, BUN 14, Creatinine 0.9, Est GFR ( Amer) > 60, Est GFR (Non- Af Amer) > 60, Random Glucose 92, Calcium 8.8, Phosphorus 3.3, Magnesium 1.9, Total Bilirubin 0.6, AST 31, ALT 46, Alkaline Phosphatase 127 H, Total Protein 7.2, Albumin 3.9, Globulin 3.3, Albumin/Globulin Ratio 1.2, Lipase 38 04/26/17 13:30: WBC 7.7 D, RBC 4.68, Hgb 14.1, Hct 41.0 L, MCV 87.6, MCH 30.1, MCHC 34.4, RDW 14.2, Plt Count 171, MPV 9.1, Gran % 63.3, Lymph % (Auto) 29.1, [place] % (Auto) 5.4, Eos % (Auto) 1.9, Baso % (Auto) 0.3, Gran # 4.89, Lymph # 2.3 , [place] # 0.4, Eos # 0.2, Baso # 0.02 04/26/17 13:25: Urine Color Yellow, Urine Appearance Clear, Urine pH 6.0, Ur Specific [place] >= 1.030, Urine Protein Trace H, Urine Glucose (UA) Negative, Urine Ketones Negative, Urine Blood Negative, Urine Nitrate Negative, Urine Bilirubin Negative, Urine Urobilinogen 0.2, Ur Leukocyte Esterase Negative, Urine RBC Negative, Urine WBC 0 - 2, Urine Bacteria Few I have reviewed the lab results: Yes - Medication Orders Current Medication Orders: Discontinued Medications Al Hydrox/Mg Hydrox/Simethicone (Maalox Plus 30 Ml) 30 ml PO STAT STA Stop: 04/26/17 13:02 Last Admin: 04/26/17 13:20 Dose: 30 ml Famotidine (Pepcid) 20 mg IVP STAT STA Stop: 04/26/17 13:02 Last Admin: 04/26/17 13:20 Dose: 20 mg IVP Administration Document 04/26/17 13:20 OCS (Rec: 04/26/17 13:39 OCS [id number]) Charges for Administration # of IVP Administrations 1 - Scribe Statement The provider has reviewed the documentation as recorded by the Scribe Angela Jaffe Provider Scribe Attestation: All medical record entries made by the Scribe were at my direction and personally dictated by me. I have reviewed the chart and agree that the record accurately reflects my personal performance of the history, physical exam, medical decision making, and the department course for this patient. I have also personally directed, reviewed, and agree with the discharge instructions and disposition. Disposition/Present on Arrival - Present on Arrival Any Indicators Present on Arrival: No History of DVT/PE: Yes History of Uncontrolled Diabetes: No Urinary Catheter: No History of Decub. Ulcer: No History Surgical Site Infection Following: None - Disposition Have Diagnosis and Disposition been Completed?: Yes Diagnosis: Abdominal pain, Nausea Disposition: HOME/ ROUTINE Disposition Time: 14:46 Patient Plan: Discharge Condition: GOOD Additional Instructions: Follow-up with PMD within 2 days. Follow-up with GI within 1 week. Return to ED immediately with any worsening symptoms. Referrals: Raciel Rivera MD [Primary Care Provider] - Follow up with primary Franklin Estrada MD [Staff Provider] - Follow up with primary Forms: [employer] (British)
[2017-04-26 13:42] LABS: URINE APPEARANCE CLEAR (CLEAR); URINE BILIRUBIN NEGATIVE (NEGATIVE); URINE BLOOD NEGATIVE (NEGATIVE); URINE COLOR YELLOW (YELLOW); URINE GLUCOSE (UA) NEGATIVE (NEGATIVE); URINE KETONE NEGATIVE (NEGATIVE); URINE LEUKOCYTE ESTERASE NEGATIVE Leu/uL (NEGATIVE); URINE PROTEIN TRACE mg/dL (<30 mg/dL); URINE UROBILINOGEN 0.2 E.U./dL (<1 E.U./dL)
[2017-04-26 13:50] LABS: BASO # 0.02 K/mm3 (0.0-2.0); BASO % 0.3 % (0.0-3.0); EOS # 0.2 (0.0-0.7); EOS % 1.9 % (1.5-5.0); GRAN # 4.89 (1.4-6.5); GRAN % 63.3 % (50.0-68.0); LYMPH # 2.3 (1.2-3.4); LYMPH % 29.1 % (22.0-35.0); MEAN CELL VOLUME 87.6 fl (80.0-105.0); MEAN CORPUSCULAR HEMOGLOBIN 30.1 pg (25.0-35.0); MEAN CORPUSCULAR HGB CONC 34.4 g/dl (31.0-37.0); MEAN PLATELET VOLUME 9.1 fl (7.0-11.0); MONO # 0.4 (0.1-0.6); MONO % 5.4 % (1.0-6.0); RED CELL DISTRIBUTION WIDTH 14.2 % (11.5-14.5); WHITE BLOOD COUNT 7.7 10^3/ul (4.5-11.0)
[2017-04-26 13:57] LABS: URINE BACTERIA FEW (NEG); URINE RBC NEGATIVE /hpf (0-2); URINE WBC 0 - 2 /hpf (0-6)
[2017-04-26 14:03] LABS: ALB/GLOB RATIO 1.2 (1.1-1.8); ALKALINE PHOSPHATASE 127 U/L (38-126); ALT/SGPT 46 U/L (7-56); AST/SGOT 31 U/L (17-59); BILIRUBIN,TOTAL 0.6 mg/dL (0.2-1.3); BLOOD UREA NITROGEN 14 mg/dL (7-21); CALCIUM 8.8 mg/dL (8.4-10.5); CARBON DIOXIDE 28 mmol/L (21-33); CHLORIDE 109 mmol/L (98-107); GFR AFRICAN-AMERICAN > 60; GLUCOSE,RANDOM 92 mg/dL (70-110); LIPASE 38 U/L (23-300); MAGNESIUM 1.9 mg/dL (1.7-2.2); PHOSPHOROUS 3.3 mg/dL (2.5-4.5); POTASSIUM 3.6 mmol/L (3.6-5.0); SODIUM 143 mmol/L (132-148); TOTAL PROTEIN 7.2 g/dL (5.8-8.3)
--- NOTE | 2017-04-26 23:05 | CARD ---
APPROVED REPORT EKG Measurement Heart [id number] <Conclusion> Sinus bradycardia Right bundle branch block Minimal voltage criteria for LVH, may be normal variant Abnormal ECG
== END 2017-04-26 15:40 | disposition home or self-care (01) ==
LOC: ED 12:27
DX: R10.9 Unspecified abdominal pain (principal); R11.0 Nausea; I10 Essential (primary) hypertension; Z86.711 Personal history of pulmonary embolism; Z79.01 Long term (current) use of anticoagulants; Z96.652 Presence of left artificial knee joint

== ENCOUNTER 2017-07-02 17:00 | Observation (INO) | payer BC, MEDICARE ==
[2017-07-02 17:01] VITALS: PULSE 61
[2017-07-02 17:12] VITALS: BMI 36.3
--- NOTE | 2017-07-02 18:08 | ED PDOC ---
Arrival/HPI - General Chief Complaint: Chest Pain Time Seen by Provider: 07/02/17 17:06 Historian: Patient - History of Present Illness Narrative History of Present Illness (Text): 07/02/17 18:00 A 57 year old male, whose past medical history includes blood clots to left leg and neck fusion operation (May), is brought into ER from [facility] for CA. Patient reports he took pain medications at 09:00 this morning. Later between 10:00-10:30, patient began experiencing mid-sternal chest pain radiating to left arm. Patient later began experiencing lightheadedness and shortness of breath. Patient decided to go to [facility] in [place] and had EKG and labwork completed. As a result, patient was diagnosed with CA. PMD: Dr. Raciel Rivera Past Medical History - Provider Review Nursing Documentation Reviewed: Yes - Travel History Have you recently traveled outside [place] w/in the past 3 mons?: No - Past History Past History: No Previous - Infectious Disease Hx of Infectious Diseases: None - Tetanus Immunization Tetanus Immunization: Unknown - Cardiac Hx Hypertension: Yes - Pulmonary Hx Respiratory Disorders: Yes Hx Asthma: Yes Hx Pulmonary Embolism: Yes (hx) Hx Sleep Apnea: Yes (cpap at night) - Neurological Hx Paralysis: No - HEENT Hx HEENT Disorder: Yes (Wears glasses.) Other/Comment: RECENT MIDDLE EAR INFECTION - Renal Hx Renal Disorder: No Hx Dialysis: No - Endocrine/Metabolic Hx Endocrine Disorders: No - Hematological/Oncological Hx Blood Transfusions: No Hx Blood Transfusion Reaction: No - Integumentary Hx Dermatological Disorder: Yes (s/p left knee replacement in 05/2013. Open wound.) - Musculoskeletal/Rheumatological Hx Musculoskeletal Disorders: Yes Hx Back Pain: Yes - Gastrointestinal Hx Gastrointestinal Disorders: Yes Hx Gastroesophageal Reflux: Yes Other/Comment: esophagitis, duodenitis, gastrophoresis, colitis - Genitourinary/Gynecological Hx Genitourinary Disorders: Yes Hx Prostate Problems: Yes - Psychiatric Hx Emotional Abuse: No Hx Physical Abuse: No Hx Substance Use: No - Surgical History Hx Cardiac Catheterization: Yes (no stent placement) Hx Joint Replacement: Yes (Right hip,LEFT HIP, Left knee x 2.) Hx Musculoskeletal Surgery: Yes Hx Orthopedic Surgery: Yes (neck, left knee replacement x 2) Other/Comment: rt inguinla surgery 07/31/15. L knee tendon graft 07/2016/ left hip/liseth shoulders/lumbar - Anesthesia Hx Anesthesia: Yes Hx Anesthesia Reactions: (DIFFICULT INTUBATION R/T NECK PROBLEMS) Hx Malignant Hyperthermia: No - Suicidal Assessment Feels Threatened In Home Enviroment: No Family/Social History - Physician Review Nursing Documentation Reviewed: Yes Family/Social History: No Known Family HX Smoking Status: Never Smoked Hx Alcohol Use: No Hx Substance Use: No Hx Substance Use Treatment: No Allergies/Home Meds Allergies/Adverse Reactions: Allergies strawberry Allergy (Intermediate, Verified 07/02/17 17:38) RASH tobramycin Allergy (Intermediate, Verified 07/02/17 17:38) VERTIGO/RASH Home Medications: Home Meds Medication Instructions Recorded Confirmed Hydromorphone HCl [Dilaudid] 2 mg PO TID PRN 09/06/14 07/02/17 Metoprolol Succinate [Toprol XL] 100 mg PO QAM 10/12/14 07/02/17 Dicyclomine [Bentyl] 20 mg PO TID 10/16/15 07/02/17 Omeprazole [Prilosec] 40 mg PO QAM 10/16/15 07/02/17 Warfarin [Coumadin] 6 mg PO HS 01/14/16 07/02/17 Flecainide [Tambocor] 5 mg PO BID 03/17/16 07/02/17 Furosemide [Lasix] 40 mg PO QAM 03/17/16 07/02/17 Albuterol Sulfate [Proair 1 puff IH 10/31/16 07/02/17 Respiclick] Oxybutynin [Ditropan Tab] 10 mg PO QAM 10/31/16 07/02/17 Montelukast [Singulair] 10 mg PO QPM 01/13/17 07/02/17 Losartan Potassium 50 mg PO QAM 01/23/17 07/02/17 Metoprolol Tartrate [Lopressor] 50 mg PO HS 01/23/17 07/02/17 Compound Ketoprofen Menthol Cream 1 appl TOP TID 04/05/17 07/02/17 Latanoprost 0.005% Opht [XALATAN 1 drp BOTHEYES HS 04/05/17 07/02/17 2.5 Ml] Lidocaine 5% [Lidoderm] 1 patch TOP DAILY 04/05/17 07/02/17 Review of Systems - Physician Review All systems were reviewed & negative as marked: Yes - Review of Systems Constitutional: Normal Eyes: Normal ENT: Normal Respiratory: SOB Cardiovascular: Chest Pain (mid-sternal chest pain radiating to left arm) Gastrointestinal: Normal Genitourinary Male: Normal Musculoskeletal: Normal Skin: Normal Neurological: Normal Endocrine: Normal Hemo/Lymphatic: Normal Psychiatric: Normal Physical Exam Vital Signs Reviewed: Yes Vital Signs Temp Pulse Resp BP Pulse Ox 07/02/17 17:19 98.2 F 48 L 18 162/84 H 100 Temperature: Afebrile Blood Pressure: Hypertensive Pulse: Regular Respiratory Rate: Normal Appearance: Positive for: Well-Appearing Pain Distress: None Mental Status: Positive for: Alert and Oriented X 3 - Systems Exam Head: Present: Atraumatic, Normocephalic Pupils: Present: PERRL Extroacular Muscles: Present: EOMI Conjunctiva: Present: Normal Ears: Present: Normal Mouth: Present: Moist Mucous Membranes Pharnyx: Present: Normal Nose (External): Present: Atraumatic Nose (Internal): Present: Normal Inspection Neck: Present: Normal Range of Motion Respiratory/Chest: Present: Clear to Auscultation, Good Air Exchange Cardiovascular: Present: Regular Rate and Rhythm Abdomen: No: Tenderness, Distention, Normal Bowel Sounds, Peritoneal Signs, Rebound, Guarding, McBurney's Point Tender, Rovsing's Sign Present, Hernias, Feeding Tubes, Ostomy Tubes, Mass/Organomegaly, Scars, Other Back: Present: Normal Inspection Upper Extremity: Present: Normal Inspection Lower Extremity: Present: Normal Inspection Neurological: Present: GCS=15, CN II-XII Intact, Speech Normal, Motor Func Grossly Intact Skin: Present: Warm, Normal Color Psychiatric: Present: Alert, Oriented x 3, Normal Insight, Normal Concentration Medical Decision Making ED Course and Treatment: 07/02/17 18:19 OSH labs Wbc 6.9 pt with INR 4.0 Trop 0.19 CXR no active disease. Given Aspririn 325mg OSH d/w Dr. Rodriguez and stated can admit to telemetry, where chemistry test can be done as not noted in labs from OSH, repeat serial enzymes, ECG can be completed. pt with generalized pain and can give dilouded 1mg iv. he stated no further testing or imaging recommended at this time. - Lab Interpretations I have reviewed the lab results: Yes - EKG Interpretation Interpreted by ED Physician: Yes (bradycardia, RBBB) Type: 12 lead EKG Comparison: Similar to previous EKG (04/26/17) - Scribe Statement The provider has reviewed the documentation as recorded by the Gracy Marquez Provider Scribe Attestation: All medical record entries made by the Scribe were at my direction and personally dictated by me. I have reviewed the chart and agree that the record accurately reflects my personal performance of the history, physical exam, medical decision making, and the department course for this patient. I have also personally directed, reviewed, and agree with the discharge instructions and disposition. Disposition/Present on Arrival - Present on Arrival Any Indicators Present on Arrival: No History of DVT/PE: Yes History of Uncontrolled Diabetes: No Urinary Catheter: No History of Decub. Ulcer: No History Surgical Site Infection Following: None - Disposition Have Diagnosis and Disposition been Completed?: Yes Diagnosis: Chest pain Disposition: HOSPITALIZED Disposition Time: 18:21 Patient Plan: Admission, Telemetry Patient Problems: Current Active Problems Problem Status Onset Chest pain Acute Condition: IMPROVED Discharge Instructions (ExitCare): Chest Pain (ED) Referrals: Raciel Rivera MD [Primary Care Provider] - Follow up with primary Forms: [employer] (Lithuanian)
[2017-07-02] MEDS ORDERED: HYDROmorphone 1 mg/ml ISec IVP STA (18:09)
[2017-07-03 05:00] VITALS: RESP 20; O2SAT 94
--- NOTE | 2017-07-03 10:55 | CARD ---
APPROVED REPORT EKG Measurement Heart [id number] DC 170P41 [id number] <Conclusion> Marked sinus bradycardia Right bundle branch block NSSTW changes No change
--- NOTE | 2017-07-03 11:20 | CARD ---
APPROVED REPORT EKG Measurement Heart [id number] NM 158P54 [id number] <Conclusion> Sinus bradycardia Right bundle branch block Moderate voltage criteria for LVH, may be normal variant T wave abnormality, consider inferior ischemia, new
--- NOTE | 2017-07-03 11:52 | CON ---
DATE: 07/03/2017 INDICATIONS: Chest pain, diffuse pains. HISTORY OF PRESENT ILLNESS: This is a 57-year-old male known to me admitted yesterday after he went to the [facility] complaining of chest pain as well as diffuse body pains. He has chronic pain, but he felt that these pains were worst than usual. Apparently, a troponin was elevated and he was sent to the [facility] Emergency Room and admitted. The subsequent troponin level here is normal. This morning, he complained of diffuse pains and he is asking for his Dilaudid. He is not experiencing chest pain today. There is no orthopnea, PND, syncope, lightheadedness, dizziness or vertigo. He does have chronic dyspnea on exertion. There is no abdominal pain, nausea, vomiting, diarrhea, constipation, melena, fever, chills, cough, sputum production or hemoptysis. PAST MEDICAL HISTORY: Complex. He has paroxysmal atrial fibrillation. He has undergone cardiac catheterization, which disclosed normal coronary arteries many years ago. He has chronic pain. He has undergone many orthopedic procedures including joint replacements. He has a history of hypertension, GERD, depression, but no history of rheumatic fever, myocardial infarction, congestive heart failure, stroke, TIA, or diabetes. MEDICATIONS AT THE TIME OF ADMISSION: Include Bentyl, Coumadin, Dilaudid, Ditropan, Lasix, Lidoderm, Lopressor, losartan, Prilosec, ProAir, Singulair, flecainide, metoprolol, latanoprost eye drops. ALLERGIES: HE NOTES AN ALLERGY TO TOBRAMYCIN. SOCIAL HISTORY: He does not smoke. He does not drink alcohol. He lives at home with his . He is disabled. He is ambulatory with a cane. REVIEW OF SYSTEMS: A 10-point review of systems, otherwise unremarkable except as noted above. FAMILY HISTORY: Noncontributory. PHYSICAL EXAMINATION: GENERAL: He is well-developed man, sitting on his bed on Telemetry, in no acute distress. He did not sleep well last night. He is having increased pain this morning. He is asking for IV Dilaudid. VITAL SIGNS: He is in sinus rhythm, sinus bradycardia, 52-60 beats per minute. He is afebrile. Blood pressure 178/92, respirations 18-20, O2 sat 94-100% on room air. HEENT: Mucous membranes are moist. Conjunctivae pink. NECK: Reveals no neck vein distension. There is a IV in his right external jugular vein. Neck is supple. LUNGS: Lungs michelle clear throughout. HEART: Revealed normal first and second heart sounds. ABDOMEN: Soft. Bowel sounds present. No mass, organomegaly, tenderness, rebound, or guarding. NEUROLOGIC: Awake, alert, and oriented. PSYCHIATRIC: Normal as to mood and affect. SKIN: Warm and dry. No rash or cellulitis. LABORATORY AND IMAGING: Troponin at 6 a.m. was less than 0.01. EKG showed sinus bradycardia, right bundle-branch block, nonspecific ST-wave changes. No change from previous EKG. Lab work at the [facility] was apparently unremarkable, although I do have copies. According to our ER note, white count was normal. INR was 4.0. Troponin was 0.19. A chest x-ray was no active disease. IMPRESSION: Terrell Mendoza is a complex medical patient with chronic pain, multiple surgical and orthopedic procedures, history of an unremarkable cardiac catheterization many years ago who presents with diffuse pain including chest pain and initial troponin in the [facility] was elevated, but the troponin is normal today. I will repeat his EKG. I will review his old records. We will continue his usual medications including losartan, aspirin, Lasix, metoprolol, flecainide. He will get pain medicines according to Dr. Rivera. He can be out of bed. I will order another troponin for noontime. I will repeat his INR at the same time. I will make additional recommendations based on the clinical course and lab results. He is very anxious to leave the hospital. If his troponin is unremarkable, I would consider early discharge with close outpatient followup. If chest pain continues, we will arrange an outpatient nuclear stress test. Dimitrios Leija MD MTDYesenia
[2017-07-03 12:22] LABS: PROTHROMBIN TIME 44.2 SECONDS (9.4-12.5)
[2017-07-03 12:24] VITALS: BP 170/96; TEMP 97.4
[2017-07-03 12:26] LABS: INR 3.74 (0.93-1.08)
--- NOTE | 2017-07-03 13:47 | CP.PCM.PN ---
<Jennifer Merritt - Last Filed: 07/03/17 14:24> Subjective - Date & Time of Evaluation Date of Evaluation: 07/03/17 Time of Evaluation: 13:35 - Subjective Subjective: Called by nurse, patient want to sign out AMA. Reviewed the chart, patient admitted due to elevated trop and INR of 4, Dr Leija saw patient recommended repeat trop, ekg and INR. Repeat INR 3.74, trop x2 negative. Patient doesn't want to wait for Dr Hanna, have something urgent to do at home. Explained benefit of staying and risk of signing out AMA, including TN, cardiac arrest, hemorrhage and . Patient still wants to sign out AMA. AMA form signed. Objective - Vital Signs/Intake and Output Vital Signs (last 24 hours): Temp Pulse Resp BP Pulse Ox 97.4 F L 51 L 20 170/96 H 94 L 07/03/17 12:00 07/03/17 12:00 07/03/17 12:00 07/03/17 12:00 07/03/17 00:01 Intake and Output: 07/03/17 07/03/17 06:59 18:59 Intake Total 420 Balance 420 - Medications Medications: Current Medications Aspirin (Ecotrin) 81 mg PO DAILY [facility] Last Admin: 07/03/17 09:18 Dose: 81 mg Flecainide Acetate (Tambocor) 50 mg PO Q12 [facility] Last Admin: 07/03/17 10:57 Dose: 50 mg Furosemide (Lasix) 40 mg PO QAM [facility] Last Admin: 07/03/17 09:18 Dose: Not Given Hydromorphone HCl (Dilaudid) 2 mg PO TID PRN PRN Reason: Pain, severe (8-10) Last Admin: 07/03/17 08:02 Dose: 2 mg Losartan Potassium (Cozaar) 50 mg PO QAM [facility] Last Admin: 07/03/17 09:17 Dose: Not Given Metoprolol Tartrate (Lopressor) 50 mg PO BID [facility] Last Admin: 07/03/17 09:18 Dose: 50 mg Warfarin Sodium (Coumadin) 6 mg PO 1800 [facility] PRN Reason: Protocol - Labs Labs: PT 44.2 SECONDS (9.4-12.5) H 07/03/17 11:30 INR 3.74 (0.93-1.08) H* 07/03/17 11:30 <Jennifer Hanna - Last Filed: 07/04/17 20:37> Objective - Vital Signs/Intake and Output Vital Signs (last 24 hours): Temp Pulse Resp BP Pulse Ox 97.4 F L 68 20 170/96 H 94 L 07/03/17 12:00 07/03/17 14:00 07/03/17 12:00 07/03/17 12:00 07/03/17 00:01 - Labs Labs: PT 44.2 SECONDS (9.4-12.5) H 07/03/17 11:30 INR 3.74 (0.93-1.08) H* 07/03/17 11:30 Attending/Attestation - Attestation Notes (Text): 07/04/17 20:37 AMA cancelled. Patient is considered safe to discharge home . Detailed note dictated.
[2017-07-03 14:46] VITALS: PULSE 68
--- NOTE | 2017-07-04 21:12 | DS ---
DATE OF DISCHARGE: 07/03/2017 DISCHARGE DIAGNOSES: 1. Noncardiac chest pain. 2. History of pulmonary embolism. 2. History of deep venous thrombosis. 3. History of multiple orthopedic surgery. HOSPITAL COURSE: The patient was admitted with chest pain that resolved. Two serial troponins were negative. He was evaluated by Cardiology. First set of troponin is ordered. He does not want to wait for the third set of troponin. He is asymptomatic now. He is being discharged with instruction to return back to ER if chest pain recurs. Currently, he is in stable condition. PHYSICAL EXAMINATION ON DISCHARGE: GENERAL: Comfortable in bed in no acute distress. VITAL SIGNS: Temperature 98.7, heart rate is 80 per minute, blood pressure 130/70. HEENT: Normal. NECK: No lymphadenopathy. CHEST: Air entry present and equal bilaterally. No added sounds. CARDIOVASCULAR: S1 and S2 normal. No murmur. No gallop. ABDOMEN: Soft, nontender. No hepatosplenomegaly. EXTREMITIES: No edema. WRAPPER SORTER: Alert and oriented x3. No focal sensory or motor deficit. SKIN: No petechiae. No rash. SPINE: Nontender. CONDITION ON DISCHARGE: Stable. DISPOSITION: Discharged home. HOME MEDICATIONS: Lasix 40 mg daily, aspirin 81 mg daily, Cozaar 50 mg q.a.m., metoprolol 50 mg p.o. b.i.d., Coumadin held for 2 days and restarted 3 mg daily. FOLLOWUP: With Dr. Kent in 1 week. DIET: Heart-healthy diet. Time spent in preparing discharge and coordinating care, 55 minutes. Jennifer Hanna MD
--- NOTE | 2017-07-04 21:56 | HP ---
HISTORY OF PRESENT ILLNESS: Mr. Mendoza is a 57-year-old male admitted to the hospital with chest pain and leg pain. He has a history of blood clot in the lower extremity and neck fusion operation. He was lightheaded. He was transferred from [facility] to [facility]. Troponins were negative. PAST MEDICAL HISTORY: Hypertension, history of pulmonary embolism, sleep apnea, left knee replacement, esophagitis, duodenitis, GE reflux, and BPH. PAST SURGICAL HISTORY: Cardiac catheterization, joint replacement, orthopedic surgery on the neck, and inguinal hernia surgery. FAMILY HISTORY: Noncontributory. PERSONAL HISTORY: Never smoked. No history of alcohol abuse. ALLERGIES: STRAWBERRY AND TOBRAMYCIN. HOME MEDICATIONS: Oxybutynin, Singulair 10 mg daily, losartan 50 mg daily, Lopressor 50 mg p.o. at bedtime, and Lidoderm patch locally. REVIEW OF SYSTEMS: As per HPI. Rest of 12-point review of systems reviewed and negative. PHYSICAL EXAMINATION: GENERAL: Comfortable in bed, in no acute distress. Obese. VITAL SIGNS: Temperature 98.2, heart rate 48, respiratory rate 18 per minute, blood pressure is 160/84, and pulse ox is 100% on room air. HEENT: Normal. Oral mucosa moist. NECK: Supple. CHEST: Air entry present and equal bilaterally. No added sounds. CARDIOVASCULAR: S1 and S2 normal. No murmur. No gallop. ABDOMEN: Soft and nontender. No hepatosplenomegaly. EXTREMITIES: No edema. SKIN: Normal. No petechiae. No pallor. SPINE: Nontender. LABORATORY DATA: Chest x-ray, no active disease. Troponin less than 0.01. INR was 3.7. Rest of the labs done at [facility]. ASSESSMENT: 1. Chest pain. 2. History of deep vein thrombosis. 3. History of pulmonary embolism. 4. History of multiple orthopedic surgery. PLAN: He will be admitted to tele monitoring. Aspirin 81 mg daily, Lasix 40 mg daily, Dilaudid in the ER 2 mg t.i.d. p.r.n. for neck pain, Cozaar 50 mg daily, metoprolol 50 mg p.o. b.i.d., and Coumadin on hold if the INR is supratherapeutic. Cardiology consultation, Dr. Guerrero is requested. Jennifer Hanna MD
--- NOTE | 2017-07-05 09:11 | CARD ---
APPROVED REPORT EKG Measurement Heart [id number] 170P41 [id number] <Conclusion> Marked sinus bradycardia Right bundle branch block Minimal voltage criteria for LVH, may be normal variant NSSTW changes
== END 2017-07-03 14:57 | disposition left against medical advice (07) ==
LOC: ED 17:00 → ERH 18:10 → INTOOBSV 18:10 → ERH 20:41 → 2RSO 21:46
PROVIDERS: ADMIT Internal Medicine Nephrology; ATTEND Internal Medicine Nephrology
DX: R07.89 Other chest pain (principal); G47.30 Sleep apnea, unspecified; G89.29 Other chronic pain; I10 Essential (primary) hypertension; I48.0 Paroxysmal atrial fibrillation; J45.909 Unspecified asthma, uncomplicated; K21.9 Gastro-esophageal reflux disease without esophagitis; N40.0 Benign prostatic hyperplasia without lower urinary tract symptoms; Z79.01 Long term (current) use of anticoagulants; Z79.82 Long term (current) use of aspirin; Z79.899 Other long term (current) drug therapy; Z86.711 Personal history of pulmonary embolism; Z86.718 Personal history of other venous thrombosis and embolism; Z96.652 Presence of left artificial knee joint; Z98.1 Arthrodesis status; Z88.1 Allergy status to other antibiotic agents; I45.10 Unspecified right bundle-branch block; R00.1 Bradycardia, unspecified
CPT/HCPCS: 36415; 84484; 85610; 93005; 94660; 96374; 99285; G0378; J1170

== ENCOUNTER 2017-08-11 09:28 | Emergency (ER) | payer BC, MEDICARE ==
[2017-08-11 09:29] VITALS: PULSE 61; BMI 36.3
[2017-08-11] MEDS ORDERED: Morphine 4 mg/ml ISec IM STA (09:50)
--- NOTE | 2017-08-11 09:50 | ED PDOC ---
Arrival/HPI - General Chief Complaint: Lower Extremity Problem/Injury Time Seen by Provider: 08/11/17 09:34 Historian: Patient - History of Present Illness Narrative History of Present Illness (Text): 08/11/17 09:44 57 year old male, pmh including htn/a.fibb (on coumadin)/bph/PE/sleep apnea/gerd /inguinal hernia/chronic neck/back/knee pain which following up with the orthopedic, allergic to tobramycin, complaining of chronic rt. hip and lt. knee pain for years. Pt. stated that he had multiple total knee/bilateral hip replacement years ago, seeing pain management doctor DR. Garica, unfortunately his orthopedic surgeon can no longer seeing him as they don't accept his insurance now, here today because he is in pain, 2mg of dilaudid is his home po medication which he didn't take it today, walk to the ER with a cane independently, no lower back pain, no numbness or tingling, no urinary or bowel incontinence or retention, no night sweat, no rash, no change in vision, no other medical or psychological complaints. Past Medical History - Provider Review Nursing Documentation Reviewed: Yes - Past History Past History: No Previous - Infectious Disease Hx of Infectious Diseases: None - Tetanus Immunization Tetanus Immunization: Unknown - Cardiac Hx Hypertension: Yes - Pulmonary Hx Asthma: Yes - Neurological Hx Neurological Disorder: No - HEENT Hx HEENT Disorder: No - Renal Hx Renal Disorder: No - Endocrine/Metabolic Hx Endocrine Disorders: No - Hematological/Oncological Hx Blood Disorders: No Other/Comment: hx of DVT - Integumentary Hx Dermatological Disorder: No - Musculoskeletal/Rheumatological Hx Falls: No Hx Herniated Disk: Yes - Gastrointestinal Hx Gastrointestinal Disorders: No - Genitourinary/Gynecological Hx Genitourinary Disorders: No - Psychiatric Hx Psychophysiologic Disorder: No Hx Substance Use: No - Surgical History Other/Comment: R hip r/p. L knee r/p - Anesthesia Hx Anesthesia: Yes Hx Anesthesia Reactions: No (DIFFICULT INTUBATION R/T NECK PROBLEMS) Hx Malignant Hyperthermia: No - Suicidal Assessment Feels Threatened In Home Enviroment: No Family/Social History - Physician Review Nursing Documentation Reviewed: Yes Family/Social History: Unknown Family HX Smoking Status: Never Smoked Hx Alcohol Use: No Hx Substance Use: No Hx Substance Use Treatment: No Allergies/Home Meds Allergies/Adverse Reactions: Allergies strawberry Allergy (Intermediate, Verified 08/11/17 09:42) RASH tobramycin Allergy (Intermediate, Verified 08/11/17 09:42) VERTIGO/RASH Home Medications: Home Meds Medication Instructions Recorded Confirmed Hydromorphone HCl [Dilaudid] 2 mg PO TID PRN 09/06/14 08/11/17 Dicyclomine [Bentyl] 20 mg PO TID 10/16/15 08/11/17 Omeprazole [Prilosec] 40 mg PO QAM 10/16/15 08/11/17 Warfarin [Coumadin] 6 mg PO HS 01/14/16 08/11/17 Flecainide [Tambocor] 5 mg PO BID 03/17/16 08/11/17 Furosemide [Lasix] 40 mg PO QAM 03/17/16 08/11/17 Albuterol Sulfate [Proair 1 puff IH 10/31/16 08/11/17 Respiclick] Oxybutynin [Ditropan Tab] 10 mg PO QAM 10/31/16 08/11/17 Montelukast [Singulair] 10 mg PO QPM 01/13/17 08/11/17 Losartan Potassium 50 mg PO QAM 01/23/17 08/11/17 Metoprolol Tartrate [Lopressor] 50 mg PO HS 01/23/17 08/11/17 Latanoprost 0.005% Opht [Xalatan 1 drp BOTHEYES HS 04/05/17 08/11/17 Opht] Lidocaine 5% [Lidoderm] 1 patch TOP DAILY 04/05/17 08/11/17 Cyclobenzaprine [Flexeril] 10 mg PO BID 08/11/17 08/11/17 Review of Systems - Review of Systems Constitutional: absent: Fatigue, Fevers Eyes: absent: Vision Changes ENT: absent: Hearing Changes Respiratory: absent: SOB, Cough Cardiovascular: absent: Chest Pain Gastrointestinal: absent: Abdominal Pain, Nausea, Vomiting Musculoskeletal: Arthralgias, Myalgias. absent: Back Pain, Neck Pain, Joint Swelling Skin: absent: Rash, Pruritis Neurological: absent: Headache, Dizziness Psychiatric: absent: Anxiety, Depression, Suicidal Ideation Physical Exam Vital Signs Temp Pulse Resp BP Pulse Ox 08/11/17 11:40 86 18 168/86 H 98 02/28/18 09:34 98.6 F 92 H 18 178/91 H 98 Pain Distress: Moderate - Systems Exam Head: Present: Atraumatic, Normocephalic Pupils: Present: PERRL Extroacular Muscles: Present: EOMI Conjunctiva: Present: Normal Mouth: Present: Moist Mucous Membranes Neck: Present: Normal Range of Motion Respiratory/Chest: Present: Clear to Auscultation, Good Air Exchange. No: Respiratory Distress, Accessory Muscle Use Cardiovascular: Present: Regular Rate and Rhythm, Normal S1, S2. No: Murmurs Abdomen: Present: Normal Bowel Sounds. No: Tenderness, Distention, Peritoneal Signs Back: Present: Normal Inspection Upper Extremity: Present: Normal Inspection. No: Cyanosis, Edema Lower Extremity: Present: Normal Inspection, Other (Bilateral hip and lt. knee: visible surgical scars with no signs of infection, no tenderness or swelling, FROM without limitation, sensation intact, motor 5/5, negative marvel and malin signs, +DPPT pulses, no ecchymosis, walking with normal gait and posture with cane. ). No: Edema Neurological: Present: GCS=15, CN II-XII Intact, Speech Normal Skin: Present: Warm, Dry, Normal Color. No: Rashes Psychiatric: Present: Alert, Oriented x 3, Normal Insight, Normal Concentration Medical Decision Making ED Course and Treatment: 08/11/17 09:56 -bilateral lower extremities venuous doppler -rt. hip and left knee xray -check INR level -Morphine 4mg IM ordered -observe and reassess 08/11/17 12:30 -INR noted to be 5.41, no active bleeding or history of bleeding, no petechiae rash, no fall or trauma, will skip 2 doses and repeat INR in 2 days (discussed and confirmed with Dr. Mo, no indication of vitamin K). -Bilateral lower extremity venuous doppler: as per preliminary report, no acute DVT -Lt. knee xray show there is right knee prosthesis with no fracture or loosening. -Rt. hip xray show No acute findings -Pain decreased, walking with normal gait and posture. -Radiology and physical examination show no joint effusion or acute findings. -Discharge home with education on skip your coumadin 2 doses and repeat INR 2 days with your own pmd, INR is 5.41, follow up with your own pain management and the orthopedic given to you here in the ER for further evaluation, continue your pain medication at home, return to the ER for any new or worsening signs or symptoms. Please return to the ER immediately if you have any hematuria or abnormal skin rash/bruising as it needs to be evaluated emergently. - Lab Interpretations Lab Results: Lab Results 08/11/17 10:25: PT 64.4 H, INR 5.41 H* - RAD Interpretation Radiology Orders: 08/11/17 09:50 HIP MIN 2V W/ PELVIS RT [RAD] Stat KNEE WITH PATELLA LEFT 3 VIEW [RAD] Stat DUPLEX LOWER EXTRM VEIN BILAT [US] Stat Bilateral lower extremity venuous doppler: as per preliminary report, no acute DVT Lt. knee xray: BONES: There is right knee prosthesis with no fracture or loosening. JOINTS: Normal. No osteoarthritis. JOINT EFFUSION: None. OTHER FINDINGS: None. IMPRESSION: There is right knee prosthesis with no fracture or loosening. Rt. hip and pelvis: BONES: There is a right hip prosthesis in satisfactory alignment. No fracture or loosening. There is also a left hip prosthesis. The pelvis is unremarkable JOINTS: Normal. SOFT TISSUES: Normal. OTHER FINDINGS: None. IMPRESSION: No acute findings Head Of Design: Radiologist - Medication Orders Current Medication Orders: Discontinued Medications Morphine Sulfate (Morphine) 4 mg IM STAT STA Stop: 08/11/17 09:51 Last Admin: 08/11/17 10:15 Dose: 4 mg MAR Pain Assessment Document 08/11/17 10:15 SF (Rec: 08/11/17 10:15 SF [id number] Pain Reassessment Is this a pain reassessment? Yes Sleep Is patient sleeping during reassessment? No Presence of Pain Presence of Pain Yes Pain Scale Used Pain Scale Used Numeric IM Administration Charges Document 08/11/17 10:15 SF (Rec: 08/11/17 10:15 SF [email or web address]) Injection Site MAR Injection Site Left Deltoid Charges for Administration # of IM Administrations 1 - PA / [employer] WORKER / Resident Statement / has reviewed & agrees with the documentation as recorded. Disposition/Present on Arrival - Present on Arrival Any Indicators Present on Arrival: No History of DVT/PE: Yes History of Uncontrolled Diabetes: No Urinary Catheter: No History of Decub. Ulcer: No History Surgical Site Infection Following: None - Disposition Have Diagnosis and Disposition been Completed?: Yes Diagnosis: Chronic arthralgias of knees and hips, Supratherapeutic international normalized ratio (INR) Disposition: HOME/ ROUTINE Disposition Time: 09:57 Patient Plan: Admission, Telemetry Patient Problems: Current Active Problems Problem Status Onset Chronic arthralgias of knees and hips Acute Condition: IMPROVED Additional Instructions: -Discharge home with education on skip your coumadin 2 doses and repeat INR 2 days with your own pmd, INR is 5.41, follow up with your own pain management and the orthopedic given to you here in the ER for further evaluation, continue your pain medication at home, return to the ER for any new or worsening signs or symptoms. Please return to the ER immediately if you have any hematuria or abnormal skin rash/bruising as it needs to be evaluated emergently. Referrals: Rodrigo Elmore DO [Staff Provider] - Follow up with primary
[2017-08-11 09:58] VITALS: RESP 18; TEMP 98.6; O2SAT 98
[2017-08-11 10:49] LABS: PROTHROMBIN TIME 64.4 SECONDS (9.4-12.5)
[2017-08-11 10:51] LABS: INR 5.41 (0.93-1.08)
--- NOTE | 2017-08-11 12:37 | RAD ---
PROCEDURE: Right Knee Radiographs. HISTORY: lt. knee pain, chronic COMPARISON: None. FINDINGS: BONES: There is right knee prosthesis with no fracture or loosening. JOINTS: Normal. No osteoarthritis. JOINT EFFUSION: None. OTHER FINDINGS: None. IMPRESSION: There is right knee prosthesis with no fracture or loosening.
--- NOTE | 2017-08-11 12:39 | RAD ---
PROCEDURE: Right Hip and pelvis Radiographs. HISTORY: rt. hip pain, chronic COMPARISON: None. FINDINGS: BONES: There is a right hip prosthesis in satisfactory alignment. No fracture or loosening. There is also a left hip prosthesis. The pelvis is unremarkable JOINTS: Normal. SOFT TISSUES: Normal. OTHER FINDINGS: None. IMPRESSION: No acute findings
[2017-08-11 13:07] VITALS: BP 158/78; PULSE 81
--- NOTE | 2017-08-11 18:18 | US ---
HISTORY: Leg pain and swelling. Evaluate for DVT PHYSICIAN(S): Adan Herrera MD. TECHNIQUE: Duplex sonography and color-flow Doppler with graded compression were used to evaluate the deep venous systems of both lower extremities. FINDINGS: The visualized deep venous systems of both lower extremities are sonographically normal and compressible. Normal wave forms and augmentation are seen. There is no sonographic evidence for deep venous thrombosis in the visualized segments of both lower extremities. IMPRESSION: No sonographic evidence for deep venous thrombosis in the visualized segments of both lower extremities.
== END 2017-08-11 13:12 | disposition home or self-care (01) ==
LOC: ED 09:28
DX: M25.551 Pain in right hip (principal); M25.562 Pain in left knee; R79.1 Abnormal coagulation profile; I10 Essential (primary) hypertension; I48.91 Unspecified atrial fibrillation; Z86.718 Personal history of other venous thrombosis and embolism; Z79.01 Long term (current) use of anticoagulants
CPT/HCPCS: 73502; 73562; 85610; 93970; 96372; 99285; J2270

== ENCOUNTER 2017-08-31 09:02 | Emergency (ER) | payer BC, MEDICARE ==
[2017-08-31 09:02] VITALS: PULSE 61
[2017-08-31 09:28] VITALS: RESP 18; TEMP 98.5; O2SAT 98; BMI 43.5
[2017-08-31] MEDS ORDERED: Sodium Chloride 0.9% 1,000 ML IV STA (09:35)
--- NOTE | 2017-08-31 09:39 | ED PDOC ---
Arrival/HPI - General Chief Complaint: Abdominal Pain Time Seen by Provider: 08/31/17 09:09 - History of Present Illness Narrative History of Present Illness (Text): 57 y/o M p/w abdominal pain x 3 weeks. Describes pain as epigastric, radiates down middle of abdomen, associated with nausea and diarrhea. Denies fever, chills, chest pain, dyspnea, dysuria. Patient had esophageal study about 1 week ago but states was not related to this pain of 3 weeks. PMD Miguel Shaw Past Medical History - Past History Past History: No Previous - Infectious Disease Hx of Infectious Diseases: None - Tetanus Immunization Tetanus Immunization: Unknown - Cardiac Hx Hypertension: Yes - Pulmonary Hx Asthma: Yes - Neurological Hx Neurological Disorder: No - HEENT Hx HEENT Disorder: No - Renal Hx Renal Disorder: No - Endocrine/Metabolic Hx Endocrine Disorders: No - Hematological/Oncological Hx Blood Disorders: No Other/Comment: hx of DVT - Integumentary Hx Dermatological Disorder: No - Musculoskeletal/Rheumatological Hx Falls: No Hx Herniated Disk: Yes - Gastrointestinal Hx Gastrointestinal Disorders: No - Genitourinary/Gynecological Hx Genitourinary Disorders: No - Psychiatric Hx Psychophysiologic Disorder: No Hx Substance Use: No - Surgical History Other/Comment: R hip r/p. L knee r/p - Anesthesia Hx Anesthesia: Yes Hx Anesthesia Reactions: No (DIFFICULT INTUBATION R/T NECK PROBLEMS) Hx Malignant Hyperthermia: No - Suicidal Assessment Feels Threatened In Home Enviroment: No Family/Social History Family/Social History: No Known Family HX Smoking Status: Never Smoked Hx Alcohol Use: No Hx Substance Use: No Hx Substance Use Treatment: No Allergies/Home Meds Allergies/Adverse Reactions: Allergies strawberry Allergy (Intermediate, Verified 08/31/17 09:27) RASH tobramycin Allergy (Intermediate, Verified 08/31/17 09:27) VERTIGO/RASH Home Medications: Home Meds Medication Instructions Recorded Confirmed Hydromorphone HCl [Dilaudid] 2 mg PO TID PRN 09/06/14 08/31/17 Dicyclomine [Bentyl] 20 mg PO TID 10/16/15 08/31/17 Omeprazole [Prilosec] 40 mg PO QAM 10/16/15 08/31/17 Warfarin [Coumadin] 6 mg PO HS 01/14/16 08/31/17 Furosemide [Lasix] 40 mg PO QAM 03/17/16 08/31/17 Oxybutynin [Ditropan Tab] 10 mg PO QAM 10/31/16 08/31/17 Montelukast [Singulair] 10 mg PO QPM 01/13/17 08/31/17 Losartan Potassium 50 mg PO QAM 01/23/17 08/31/17 Metoprolol Tartrate [Lopressor] 100 mg PO HS 01/23/17 08/31/17 Latanoprost 0.005% Opht [Xalatan 1 drp BOTHEYES HS 04/05/17 08/31/17 Opht] Lidocaine 5% [Lidoderm] 1 patch TOP DAILY 04/05/17 08/31/17 Cyclobenzaprine [Flexeril] 10 mg PO BID 08/11/17 08/31/17 Albuterol Sulfate [Proair Hfa] 2 puff IH Q4 08/31/17 08/31/17 Flecainide [Tambocor] 50 mg PO BID 08/31/17 08/31/17 Metoprolol Tartrate [Lopressor] 50 mg PO HS 08/31/17 08/31/17 Review of Systems - Physician Review All systems were reviewed & negative as marked: Yes - Review of Systems Constitutional: absent: Fevers Respiratory: absent: SOB Physical Exam - Physical Exam Narrative Physical Exam (Text): Gen: NAD Head: NC Eyes: No scleral icterus ENT: MMM Neck: Supple Chest: No tenderness CV: Regular rate Lungs: CTA b/l Abd: Soft, epigastric tenderness without guarding Back: No CVA tenderness Skin: No rash Neuro: Alert Vital Signs Temp Pulse Resp BP Pulse Ox 08/31/17 09:15 98.5 F 54 L 18 178/100 H 98 Medical Decision Making ED Course and Treatment: Patient in no distress, feels better. Abdomen soft. Labs stable. Will have f/u with GI Valeria, return to ED for worsening pain, fever, vomiting, or any other problem. - Lab Interpretations Lab Results: 08/31/17 10:10 08/31/17 10:10 Lab Results 08/31/17 10:10: Sodium 143, Potassium 4.1, Chloride 106, Carbon Dioxide 29, Anion Gap 12, BUN 18, Creatinine 1.0, Est GFR ( Amer) > 60, Est GFR (Non- Af Amer) > 60, Random Glucose 109, Calcium 8.8, Total Bilirubin 0.3, AST 30, ALT 60 H, Alkaline Phosphatase 134 H, Total Protein 6.7, Albumin 3.5, Globulin 3.1, Albumin/Globulin Ratio 1.1, Lipase 211 08/31/17 10:10: WBC 8.9 D, RBC 4.67, Hgb 13.4 L, Hct 39.9 L, MCV 85.4 D, MCH 28.7, MCHC 33.6, RDW 14.7 H, Plt Count 162, MPV 9.1, Gran % 71.1 H, Lymph % ( Auto) 21.6 L, [place] % (Auto) 5.6, Eos % (Auto) 1.6, Baso % (Auto) 0.1, Gran # 6.33, Lymph # (Auto) 1.9, [place] # (Auto) 0.5, Eos # (Auto) 0.1, Baso # (Auto) 0.01 08/31/17 09:50: Urine Color Yellow, Urine Appearance Clear, Urine pH 6.0, Ur Specific [place] 1.025, Urine Protein Trace H, Urine Glucose (UA) Negative, Urine Ketones Negative, Urine Blood Trace-intact H, Urine Nitrate Negative, Urine Bilirubin Negative, Urine Urobilinogen 0.2, Ur Leukocyte Esterase Negative , Urine RBC 0 - 2, Urine WBC 1 - 3, Ur Epithelial Cells 1 - 3, Urine Bacteria Few - RAD Interpretation Radiology Orders: 08/31/17 09:35 ABD & PELVIS IV CONTRAST ONLY [CT] Stat - Medication Orders Current Medication Orders: Discontinued Medications Famotidine (Pepcid) 20 mg IVP STAT STA Stop: 08/31/17 09:36 Last Admin: 08/31/17 10:11 Dose: 20 mg IVP Administration Document 08/31/17 10:11 EQ (Rec: 08/31/17 10:11 EQ [id number]) Charges for Administration # of IVP Administrations 1 Sodium Chloride (Sodium Chloride 0.9%) 1,000 mls @ 999 mls/hr IV .Q1H1M STA Stop: 08/31/17 10:35 Last Admin: 08/31/17 10:10 Dose: 999 mls/hr eMAR Start Stop Document 08/31/17 10:10 EQ (Rec: 08/31/17 10:10 EQ [id number]) Intravenous Solution Start Date 08/31/17 Start Time 10:10 Ondansetron HCl (Zofran Inj) 8 mg IVP STAT STA Stop: 08/31/17 09:36 Last Admin: 08/31/17 10:10 Dose: 8 mg IVP Administration Document 08/31/17 10:10 EQ (Rec: 08/31/17 10:11 EQ [id number]) Charges for Administration # of IVP Administrations 1 Pantoprazole Sodium (Protonix Inj) 40 mg IVP STAT STA Stop: 08/31/17 10:38 Last Admin: 08/31/17 11:18 Dose: 40 mg IVP Administration Document 08/31/17 11:18 EQ (Rec: 08/31/17 11:18 EQ [id number]) Charges for Administration # of IVP Administrations 1 Disposition/Present on Arrival - Present on Arrival Any Indicators Present on Arrival: Yes History of DVT/PE: Yes History of Uncontrolled Diabetes: No Urinary Catheter: No History of Decub. Ulcer: No History Surgical Site Infection Following: None - Disposition Have Diagnosis and Disposition been Completed?: Yes Diagnosis: Abdominal pain Disposition: HOME/ ROUTINE Disposition Time: 12:50 Patient Plan: Discharge Condition: STABLE Discharge Instructions (ExitCare): Acute Abdomen (Belly Pain) Additional Instructions: Accession No. : [id number] Patient Name / ID : SHARLA GARDUNO / [id number] Exam Date : 08/31/2017 11:28:24 ( Approved ) Study Comment : Sex / Age : M / 57Y Creator : Rodrigo Vidal MD Dictator : Rodrigo Vidal MD Immigration Specialist : Sales Property Manager : Rodrigo Vidal MD Approver2 : Report Date : 08/31/2017 12:24:57 My Comment : PROCEDURE: CT Abdomen and Pelvis with contrast HISTORY: abd pain COMPARISON: None. TECHNIQUE: Contrast dose: 100 cc of Omni 350 Radiation dose: Total exam DLP = 1440 mGy-cm. This CT exam was performed using one or more of the following dose reduction techniques: Automated exposure control, adjustment of the mA and/or kV according to patient size, and/or use of iterative reconstruction technique. FINDINGS: LOWER THORAX: Unremarkable. LIVER: Unremarkable. No gross lesion or ductal dilatation. GALLBLADDER AND BILE DUCTS: Unremarkable. PANCREAS: Unremarkable. No gross lesion or ductal dilatation. SPLEEN: Unremarkable. ADRENALS: Unremarkable. No mass. KIDNEYS AND URETERS: Unremarkable. No hydronephrosis. No solid mass. VASCULATURE: Unremarkable. No aortic aneurysm. BOWEL: Unremarkable. No obstruction. No gross mural thickening. APPENDIX: Normal appendix. PERITONEUM: Unremarkable. No free fluid. No free air. LYMPH NODES: Unremarkable. No enlarged lymph nodes. BLADDER: Unremarkable. REPRODUCTIVE: Unremarkable. BONES: Postop changes are seen in the lumbar spine. These findings are unchanged OTHER FINDINGS: There is a small fluid collection in the subcutaneous fat of the lower abdominal wall on the right side. This was the location of the spinal stimulator which was removed. The fluid collection measures 3 x 5 cm IMPRESSION: No acute findings Prescriptions: Ondansetron ODT [Zofran ODT] 4 mg PO Q8 #12 odt Referrals: Raciel Rivera MD [Primary Care Provider] - Follow up with primary Ben Shaw MD [Medical Doctor] - Follow up with primary Forms: [employer] ([place]oz[place]ican)
[2017-08-31] MEDS ORDERED: Iohexol 350 MG/100 ML VIAL ONE (09:46)
[2017-08-31 10:03] LABS: URINE APPEARANCE CLEAR (CLEAR); URINE BILIRUBIN NEGATIVE (NEGATIVE); URINE BLOOD TRACE-INTACT (NEGATIVE); URINE COLOR YELLOW (YELLOW); URINE GLUCOSE (UA) NEGATIVE (NEGATIVE); URINE LEUKOCYTE ESTERASE NEGATIVE Leu/uL (NEGATIVE); URINE PROTEIN TRACE mg/dL (<30 mg/dL); URINE UROBILINOGEN 0.2 E.U./dL (<1 E.U./dL)
[2017-08-31 10:08] LABS: URINE BACTERIA FEW (NEG); URINE RBC 0 - 2 /hpf (0-2)
[2017-08-31 10:24] LABS: BASO # 0.01 K/mm3 (0.0-2.0); BASO % 0.1 % (0.0-3.0); EOS # 0.1 (0.0-0.7); EOS % 1.6 % (1.5-5.0); GRAN # 6.33 (1.4-6.5); GRAN % 71.1 % (50.0-68.0); HEMOGLOBIN 13.4 g/dL (14.0-18.0); LYMPH # 1.9 (1.2-3.4); LYMPH % 21.6 % (22.0-35.0); MEAN CELL VOLUME 85.4 fl (80.0-105.0); MEAN CORPUSCULAR HEMOGLOBIN 28.7 pg (25.0-35.0); MEAN CORPUSCULAR HGB CONC 33.6 g/dl (31.0-37.0); MEAN PLATELET VOLUME 9.1 fl (7.0-11.0); MONO # 0.5 (0.1-0.6); MONO % 5.6 % (1.0-6.0); RBC 4.67 10^6/uL (3.5-6.1); RED CELL DISTRIBUTION WIDTH 14.7 % (11.5-14.5); WHITE BLOOD COUNT 8.9 10^3/ul (4.5-11.0)
[2017-08-31 10:35] LABS: ALB/GLOB RATIO 1.1 (1.1-1.8); ALBUMIN 3.5 g/dL (3.0-4.8); ALT/SGPT 60 U/L (7-56); AST/SGOT 30 U/L (17-59); BLOOD UREA NITROGEN 18 mg/dL (7-21); CALCIUM 8.8 mg/dL (8.4-10.5); GFR AFRICAN-AMERICAN > 60; GFR NON-AFRICAN AMERICAN > 60; LIPASE 211 U/L (23-300)
--- NOTE | 2017-08-31 12:26 | CT ---
PROCEDURE: CT Abdomen and Pelvis with contrast HISTORY: abd pain COMPARISON: None. TECHNIQUE: Contrast dose: 100 cc of Omni 350 Radiation dose: Total exam DLP = 1440 mGy-cm. This CT exam was performed using one or more of the following dose reduction techniques: Automated exposure control, adjustment of the mA and/or kV according to patient size, and/or use of iterative reconstruction technique. FINDINGS: LOWER THORAX: Unremarkable. LIVER: Unremarkable. No gross lesion or ductal dilatation. GALLBLADDER AND BILE DUCTS: Unremarkable. PANCREAS: Unremarkable. No gross lesion or ductal dilatation. SPLEEN: Unremarkable. ADRENALS: Unremarkable. No mass. KIDNEYS AND URETERS: Unremarkable. No hydronephrosis. No solid mass. VASCULATURE: Unremarkable. No aortic aneurysm. BOWEL: Unremarkable. No obstruction. No gross mural thickening. APPENDIX: Normal appendix. PERITONEUM: Unremarkable. No free fluid. No free air. LYMPH NODES: Unremarkable. No enlarged lymph nodes. BLADDER: Unremarkable. REPRODUCTIVE: Unremarkable. BONES: Postop changes are seen in the lumbar spine. These findings are unchanged OTHER FINDINGS: There is a small fluid collection in the subcutaneous fat of the lower abdominal wall on the right side. This was the location of the spinal stimulator which was removed. The fluid collection measures 3 x 5 cm IMPRESSION: No acute findings
[2017-08-31 13:13] VITALS: BP 153/88; PULSE 53
== END 2017-08-31 13:16 | disposition home or self-care (01) ==
LOC: ED 09:02
DX: R10.13 Epigastric pain (principal); I10 Essential (primary) hypertension
CPT/HCPCS: 74177; 80053; 81001; 83690; 85025; 96374; 96375; 99284; C9113; J2405; J7040; Q9967

== ENCOUNTER 2017-12-10 10:21 | Emergency (ER) | payer BC, MEDICARE ==
[2017-12-10 10:21] VITALS: PULSE 61; BMI 43.5
[2017-12-10] MEDS ORDERED: Sodium Chloride 0.9% 1,000 ML IV STA (10:39)
--- NOTE | 2017-12-10 10:43 | ED PDOC ---
Arrival/HPI - General Chief Complaint: Male Genitourinary Time Seen by Provider: 12/10/17 10:22 Historian: Patient - History of Present Illness Narrative History of Present Illness (Text): 12/10/17 10:40 57 year old male, with no significant past medical history, who presents to the emergency department with UTI symptoms x a couple weeks. Patient notes groin pain, lower abdomen pain, and bilateral flank pain. Patient also notes frequent urination and chills at night. Patient states symptoms are similar to previous UTI experiences. Patient denies any fevers, chest pain, shortness of breath, nausea, vomiting, diarrhea, neck pain, headache, dizziness, or any other complaint. Time/Duration: < month Symptom Onset: Gradual Symptom Course: Unchanged Severity Level: 10 Activities at Onset: Light Context: Home Past Medical History - Provider Review Nursing Documentation Reviewed: Yes - Past History Past History: No Previous - Infectious Disease Hx of Infectious Diseases: None - Tetanus Immunization Tetanus Immunization: Unknown - Cardiac Hx Hypertension: Yes - Pulmonary Hx Asthma: Yes - Neurological Hx Neurological Disorder: No - HEENT Hx HEENT Disorder: No - Renal Hx Renal Disorder: No - Endocrine/Metabolic Hx Endocrine Disorders: No - Hematological/Oncological Hx Blood Disorders: No Other/Comment: hx of DVT - Integumentary Hx Dermatological Disorder: No - Musculoskeletal/Rheumatological Hx Falls: No Hx Herniated Disk: Yes - Gastrointestinal Hx Gastrointestinal Disorders: No - Genitourinary/Gynecological Hx Genitourinary Disorders: No - Psychiatric Hx Psychophysiologic Disorder: No Hx Substance Use: No - Surgical History Other/Comment: R hip r/p. L knee r/p - Anesthesia Hx Anesthesia: Yes Hx Anesthesia Reactions: No (DIFFICULT INTUBATION R/T NECK PROBLEMS) Hx Malignant Hyperthermia: No - Suicidal Assessment Feels Threatened In Home Enviroment: No Family/Social History - Physician Review Nursing Documentation Reviewed: Yes Family/Social History: Unknown Family HX Smoking Status: Never Smoked Hx Alcohol Use: No Hx Substance Use: No Hx Substance Use Treatment: No Allergies/Home Meds Allergies/Adverse Reactions: Allergies strawberry Allergy (Intermediate, Verified 08/31/17 09:27) RASH tobramycin Allergy (Intermediate, Verified 08/31/17 09:27) VERTIGO/RASH Home Medications: Home Meds Medication Instructions Recorded Confirmed Hydromorphone HCl [Dilaudid] 2 mg PO TID PRN 09/06/14 12/10/17 Dicyclomine [Bentyl] 20 mg PO TID 10/16/15 12/10/17 Omeprazole [Prilosec] 40 mg PO QAM 10/16/15 08/31/17 Warfarin [Coumadin] 6 mg PO HS 01/14/16 12/10/17 Furosemide [Lasix] 40 mg PO QAM 03/17/16 08/31/17 Oxybutynin [Ditropan Tab] 10 mg PO QAM 10/31/16 08/31/17 Montelukast [Singulair] 10 mg PO QPM 01/13/17 08/31/17 Losartan Potassium 50 mg PO QAM 01/23/17 12/10/17 Metoprolol Tartrate [Lopressor] 100 mg PO HS 01/23/17 12/10/17 Latanoprost 0.005% Opht [Xalatan 1 drp BOTHEYES HS 04/05/17 08/31/17 Opht] Lidocaine 5% [Lidoderm] 1 patch TOP DAILY 04/05/17 08/31/17 Cyclobenzaprine [Flexeril] 10 mg PO BID 08/11/17 08/31/17 Albuterol Sulfate [Proair Hfa] 2 puff IH Q4 08/31/17 08/31/17 Flecainide [Tambocor] 50 mg PO BID 08/31/17 12/10/17 Metoprolol Tartrate [Lopressor] 50 mg PO HS 08/31/17 08/31/17 Review of Systems - Physician Review All systems were reviewed & negative as marked: Yes - Review of Systems Constitutional: Normal Eyes: Normal ENT: Normal Respiratory: Normal. absent: SOB, Cough Cardiovascular: Normal. absent: Chest Pain Gastrointestinal: Abdominal Pain (lower abdominal pain). absent: Diarrhea, Nausea, Vomiting Genitourinary Male: Frequency, Other (Groin pain) Musculoskeletal: Back Pain (Bilateral flank pain) Skin: Normal. absent: Rash Neurological: Normal. absent: Headache, Dizziness Endocrine: Normal Hemo/Lymphatic: Normal Psychiatric: Normal Physical Exam Vital Signs Temp Pulse Resp BP Pulse Ox 12/10/17 14:53 80 16 157/67 H 12/10/17 10:51 98.1 F 97 H 16 186/98 H 97 - Systems Exam Head: Present: Atraumatic, Normocephalic Pupils: Present: PERRL Extroacular Muscles: Present: EOMI Conjunctiva: Present: Normal Mouth: Present: Moist Mucous Membranes Neck: Present: Normal Range of Motion. No: Meningeal Signs, MIDLINE TENDERNESS , Paraspinal Tenderness Respiratory/Chest: Present: Clear to Auscultation, Good Air Exchange. No: Respiratory Distress, Accessory Muscle Use Cardiovascular: Present: Regular Rate and Rhythm, Normal S1, S2. No: Murmurs Abdomen: No: Tenderness, Distention, Peritoneal Signs Back: Present: Other (bilateral flank pain). No: CVA Tenderness, Midline Tenderness, Paraspinal Tenderness Upper Extremity: Present: Normal Inspection. No: Cyanosis, Edema Lower Extremity: Present: Normal Inspection. No: Edema, CALF TENDERNESS Neurological: Present: GCS=15, CN II-XII Intact, Speech Normal Skin: Present: Warm, Dry, Normal Color. No: Rashes Psychiatric: Present: Alert, Oriented x 3, Normal Insight, Normal Concentration Medical Decision Making ED Course and Treatment: 12/10/17 10:45 Impression: 57 year old male presents to the emergency department complaining of UTI symptoms. Plan: -- Labs -- Tylenol -- Sodium Chloride -- Urine Culture -- Urinalysis -- US Testes -- Reassess and disposition Progress Notes: Patient refusing CT abdomen. 12/10/17 12:46 CT Abdomen/ Pelvis reviewed, shows: LOWER THORAX: Minor passive non/dependent type atelectasis both posterior lower lung michelle. There also appears to be some minimal scarring in the lower lung michelle including the middle lobe and lingular regions. Heart size normal. LIVER: Unremarkable. No gross lesion or ductal dilatation. GALLBLADDER AND BILE DUCTS: Gallbladder physiologically distended. No evidence of intraluminal gallbladder calculi. PANCREAS: Pancreas appears slightly atrophic and fatty replaced. No evidence pancreatic masses collections or calcifications. [place] SPLEEN: Spleen is upper limits of normal -borderline enlarged measuring approximately 12.6 cm. No obvious splenic mass or collection. ADRENALS: No adrenal lesions. . KIDNEYS AND URETERS: The kidneys demonstrate relatively symmetric size. No evidence of nephrolithiasis or hydronephrosis. Stable appearing partially exophytic cyst arising from the anterior aspect of the mid/ lower pole cortex left kidney BLADDER: Inferior margin urinary bladder also incompletely visualized due to streak and beam hardening artifact arising from bilateral total hip replacements. Urinary bladder incompletely distended which in part accounts thick-walled appearance. Muscular hypertrophy may contribute. Clinical correlation recommended. . REPRODUCTIVE: Partial obscuration of the at anterior prostate gland by streak and beam hardening artifact arising from bilateral total hip replacements. APPENDIX: Normal-appearing appendix best seen on axial image number [id number]. BOWEL: Evaluation of the bowel is somewhat limited due to the lack of oral contrast material. The stomach is incompletely distended which presumably accounts thick-walled appearance. Visualized loops small bowel exhibit normal contour and caliber. No evidence acute mechanical small bowel obstruction. Stool and air seen throughout the large bowel. Scattered colonic diverticula again noted some of which are hyperdense likely containing inspissated material or contrast material no radiographic evidence acute diverticulitis. There appears to be some mild wall thickening of the rectum which could be due to incomplete distention on. Possibility of circumferential wall lesion not excluded. Consider follow-up colonoscopy. PERITONEUM: Unremarkable. No fluid collection. No free air. . Note again made of a stable appearing elliptical shaped fluid collection (measuring approximately 5.3 x 2.9 cm) within the subcutaneous tissues lower anterior right anterior abdominal wall with overlying skin thickening along its superior margin. Clinical correlation with history recommended. LYMPH NODES: Unremarkable. No enlarged lymph nodes. VASCULATURE: Unremarkable. No aortic aneurysm. BONES: Bilateral total hip replacements result in partial obscuration of the prostate gland, inferior margins of the seminal vesicles and and inferior margin of the urinary bladder. . Multilevel mild bilateral laminectomy defect extending from the L1-L2 through the L5-S1 levels. Posterior bony fixation mass extending over the same levels. Re- demonstrated are discectomy changes at the L5 S1 level with prostatic disc and presumed [place] bone graft tear with a fixation screw and washer traversing the upper S1 segment with washer presumably fixing the prostatic and [place] disc material in place. There is also discectomy changes at the L2-L3 level. Residual of presumed broken fixation screw traversing the left pedicle of the L2 segment. All these changes are stable. Note also made of what appears to represent residual contrast material within the distal lumbar and sacral thecal sac. . OTHER FINDINGS: Atrophic changes of the left psoas and iliacus muscles IMPRESSION: Borderline splenomegaly. Stable appearing left renal cyst. Bladder and prostate gland partially obscured by streak artifact arising from bilateral total hip replacements. Wall thickening urinary bladder likely due to incomplete distention and muscular hypertrophy. Clinical correlation recommended. Diverticulosis without radiographic evidence of acute diverticulitis. . Slight wall thickening of the rectum which could be due to incomplete distention however circumferential wall lesion not excluded. Consider followup colonoscopy. The extensive postoperative changes of the lumbar spine with what appears represent residual contrast material in the distal lumbar and sacral thecal sac. See above discussion for additional details. Stable appearing elliptical shaped fluid collection within the subcutaneous the fat lower right anterior abdominal wall. Atrophy left psoas and iliacus muscles 12/10/17 14:24 US Testes reviewed, shows: RIGHT TESTICLE: Measures 4.0 x 2.0 x 3.0 cm. Normal echotexture and flow. RIGHT EPIDIDYMIS: Epididymal head measures 1.0 x 0.6 x 0.6 cm. Grossly unremarkable appearance with normal flow. LEFT TESTICLE: Measures 4.0 x 1.8 x 2.6 cm. Note again made of a small 0.25 x 0.14 x 0.22 hyperechoic focus within the left testicle that could represent a tiny testicular microcalcification. . . This focus is of uncertain etiology though could represent a small intra testicular lipoma or microcalcification. Possibility of a testicular neoplasm cannot be excluded Normal flow. LEFT EPIDIDYMIS: Epididymal head measures 0.8 x 0.9 x 0.6 cm. Small cyst within the abdomen head measures approximately 0.4 x 0.2 x 0.4 cm. This may represent a small spermatocele. Normal flow. HYDROCELE: Bilateral VARICOCELE: Bilateral OTHER FINDINGS: None. IMPRESSION: No evidence of testicular torsion. Bilateral varicoceles and bilateral hydroceles. Re- demonstrated is a small elliptical shaped hyperechoic mass density within the left testicle of uncertain etiology. This could represent small lipoma there may or microcalcification. Possibility of a neoplasm not excluded . Urologic consultation is recommended however as the possibility of a malignant lesion cannot be excluded based on this study cannot be excluded. Small cyst within the head of the epididymis likely representing a spermatocele Findings discussed with doctor Gonzalez on at 2 p.m. with written down and read back verification. 12/10/17 18:14 updated pt with results advise close outpt fu. pt observed in nad. ambulatory on phone. pain improved. advise outpt fu and retun precautions - Lab Interpretations Lab Results: 12/10/17 11:00 12/10/17 11:00 Lab Results 12/10/17 11:00: Sodium 144, Potassium 4.0, Chloride 105, Carbon Dioxide 27, Anion Gap 15, BUN 12, Creatinine 0.8, Est GFR ( Amer) > 60, Est GFR (Non- Af Amer) > 60, Random Glucose 94, Calcium 8.6, Magnesium 1.9, Total Bilirubin 0.5, AST 31, ALT 34, Alkaline Phosphatase 114, Total Protein 6.8, Albumin 3.8, Globulin 3.0, Albumin/Globulin Ratio 1.3, Lipase 51 12/10/17 11:00: PT 43.2 H, INR 3.66 H*, APTT 57.4 H 12/10/17 11:00: WBC 6.8, RBC 4.59, Hgb 13.2 L, Hct 38.8 L, MCV 84.5, MCH 28.8, MCHC 34.0, RDW 14.6 H, Plt Count 153, MPV 8.8, Gran % 65.0, Lymph % (Auto) 26.8 , [place] % (Auto) 5.9, Eos % (Auto) 2.2, Baso % (Auto) 0.1, Gran # 4.41, Lymph # ( Auto) 1.8, [place] # (Auto) 0.4, Eos # (Auto) 0.2, Baso # (Auto) 0.01 12/10/17 10:39: Urine Color Yellow, Urine Appearance Sl cloudy, Urine pH 6.0, Ur Specific [place] 1.025, Urine Protein Trace H, Urine Glucose (UA) Negative, Urine Ketones Negative, Urine Blood Moderate H, Urine Nitrate Negative, Urine Bilirubin Negative, Urine Urobilinogen 0.2, Ur Leukocyte Esterase Negative, Urine RBC 15 - 20, Urine WBC 0 - 2, Ur Epithelial Cells 0 - 2, Urine Bacteria Mod - RAD Interpretation Radiology Orders: 12/10/17 10:40 TESTES DUPLEX COMPLETE [US] Stat 12/10/17 11:25 ABD & PELVIS W/O PO OR IV CONT [CT] Stat - Medication Orders Current Medication Orders: Discontinued Medications Acetaminophen (Tylenol 325mg Tab) 975 mg PO STAT STA Stop: 12/10/17 10:40 Last Admin: 12/10/17 10:45 Dose: 975 mg MAR Pain/Vitals Document 12/10/17 10:45 RUDY (Rec: 12/10/17 10:51 [facility]-[id number]) Pain Reassessment Is This A Pain ReAssessment? Yes Presence of Pain Presence of Pain Yes Pain Scale Used Pain Scale Used Numeric Location Upper or Lower Lower Pain Location Body Site Abdomen Intensity 10 Scale Used Numeric Sodium Chloride (Sodium Chloride 0.9%) 1,000 mls @ 1,000 mls/hr IV .Q1H STA Stop: 12/10/17 11:38 Last Admin: 12/10/17 11:00 Dose: 1,000 mls/hr eMAR Start Stop Document 12/10/17 11:00 RUDY (Rec: 12/10/17 11:17 [facility]-[id number]) Intravenous Solution Start Date 12/10/17 Start Time 11:00 End Date 12/10/17 End time 12:00 Total Infusion Time 60 - Scribe Statement The provider has reviewed the documentation as recorded by the Scribe Sheela Archibald All medical record entries made by the Scribe were at my direction and personally dictated by me. I have reviewed the chart and agree that the record accurately reflects my personal performance of the history, physical exam, medical decision making, and the department course for this patient. I have also personally directed, reviewed, and agree with the discharge instructions and disposition. Disposition/Present on Arrival - Present on Arrival Any Indicators Present on Arrival: No History of DVT/PE: Yes History of Uncontrolled Diabetes: No Urinary Catheter: No History of Decub. Ulcer: No History Surgical Site Infection Following: None - Disposition Have Diagnosis and Disposition been Completed?: Yes Diagnosis: Testicular pain, Flank pain Disposition: HOME/ ROUTINE Disposition Time: 02:00 Condition: STABLE Discharge Instructions (ExitCare): How to Perform a Testicular Self-Exam, Flank Pain (DC) Additional Instructions: please follow up with your doctor. and urologist. return to er with worsening symptoms or concerns. you may need further diagnostic testing of your testicle including biopsy. you should discuss your results in detail with your doctors. it is critical you follow up. Referrals: Сергей Huggins MD [Staff Provider] - Follow up with primary Forms: [employer] (Telugu)
[2017-12-10 10:52] VITALS: RESP 16; TEMP 98.1; O2SAT 97
[2017-12-10 11:19] LABS: URINE BILIRUBIN NEGATIVE (NEGATIVE); URINE BLOOD MODERATE (NEGATIVE); URINE GLUCOSE (UA) NEGATIVE (NEGATIVE); URINE LEUKOCYTE ESTERASE NEGATIVE Leu/uL (NEGATIVE); URINE PROTEIN TRACE mg/dL (<30 mg/dL); URINE UROBILINOGEN 0.2 E.U./dL (<1 E.U./dL)
[2017-12-10 11:22] LABS: BASO # 0.01 K/mm3 (0.0-2.0); BASO % 0.1 % (0.0-3.0); EOS # 0.2 (0.0-0.7); EOS % 2.2 % (1.5-5.0); GRAN # 4.41 (1.4-6.5); HEMOGLOBIN 13.2 g/dL (14.0-18.0); LYMPH # 1.8 (1.2-3.4); LYMPH % 26.8 % (22.0-35.0); MEAN CELL VOLUME 84.5 fl (80.0-105.0); MEAN CORPUSCULAR HEMOGLOBIN 28.8 pg (25.0-35.0); MEAN PLATELET VOLUME 8.8 fl (7.0-11.0); MONO # 0.4 (0.1-0.6); MONO % 5.9 % (1.0-6.0); RBC 4.59 10^6/uL (3.5-6.1); RED CELL DISTRIBUTION WIDTH 14.6 % (11.5-14.5); WHITE BLOOD COUNT 6.8 10^3/ul (4.5-11.0)
[2017-12-10 11:23] LABS: URINE APPEARANCE SL CLOUDY (CLEAR); URINE COLOR YELLOW (YELLOW)
[2017-12-10 11:29] LABS: ALB/GLOB RATIO 1.3 (1.1-1.8); ALBUMIN 3.8 g/dL (3.0-4.8); ALT/SGPT 34 U/L (7-56); AST/SGOT 31 U/L (17-59); BLOOD UREA NITROGEN 12 mg/dL (7-21); CALCIUM 8.6 mg/dL (8.4-10.5); GFR AFRICAN-AMERICAN > 60; GFR NON-AFRICAN AMERICAN > 60; LIPASE 51 U/L (23-300)
[2017-12-10 11:37] LABS: PROTHROMBIN TIME 43.2 SECONDS (9.4-12.5)
[2017-12-10 11:38] LABS: INR 3.66 (0.93-1.08); PARTIAL THROMBOPLASTIN TIME 57.4 Seconds (25.1-36.5)
[2017-12-10 11:38] LABS: URINE BACTERIA MOD (NEG); URINE EPITHELIAL CELLS 0 - 2 /hpf (0-5); URINE RBC 15 - 20 /hpf (0-2); URINE WBC 0 - 2 /hpf (0-6)
--- NOTE | 2017-12-10 12:28 | CT ---
PROCEDURE: CT scan abdomen pelvis 12/10/2017. HISTORY: Bilateral flank pain COMPARISON: Comparison made with CT scan abdomen pelvis 08/31/2017. TECHNIQUE: Contiguous helical/transaxial images of the abdomen and pelvis performed without oral or intravenous contrast material additional 2D sagittal and coronal reformats generated. Radiation dose: Total exam DLP = 1535.42 mGy-cm. This CT exam was performed using one or more of the following dose reduction techniques: Automated exposure control, adjustment of the mA and/or kV according to patient size, and/or use of iterative reconstruction technique. FINDINGS: LOWER THORAX: Minor passive non/dependent type atelectasis both posterior lower lung michelle. There also appears to be some minimal scarring in the lower lung michelle including the middle lobe and lingular regions. Heart size normal. LIVER: Unremarkable. No gross lesion or ductal dilatation. GALLBLADDER AND BILE DUCTS: Gallbladder physiologically distended. No evidence of intraluminal gallbladder calculi. PANCREAS: Pancreas appears slightly atrophic and fatty replaced. No evidence pancreatic masses collections or calcifications. [place] SPLEEN: Spleen is upper limits of normal -borderline enlarged measuring approximately 12.6 cm. No obvious splenic mass or collection. ADRENALS: No adrenal lesions. . KIDNEYS AND URETERS: The kidneys demonstrate relatively symmetric size. No evidence of nephrolithiasis or hydronephrosis. Stable appearing partially exophytic cyst arising from the anterior aspect of the mid/ lower pole cortex left kidney BLADDER: Inferior margin urinary bladder also incompletely visualized due to streak and beam hardening artifact arising from bilateral total hip replacements. Urinary bladder incompletely distended which in part accounts thick-walled appearance. Muscular hypertrophy may contribute. Clinical correlation recommended. . REPRODUCTIVE: Partial obscuration of the at anterior prostate gland by streak and beam hardening artifact arising from bilateral total hip replacements. APPENDIX: Normal-appearing appendix best seen on axial image number [id number]. BOWEL: Evaluation of the bowel is somewhat limited due to the lack of oral contrast material. The stomach is incompletely distended which presumably accounts thick-walled appearance. Visualized loops small bowel exhibit normal contour and caliber. No evidence acute mechanical small bowel obstruction. Stool and air seen throughout the large bowel. Scattered colonic diverticula again noted some of which are hyperdense likely containing inspissated material or contrast material no radiographic evidence acute diverticulitis. There appears to be some mild wall thickening of the rectum which could be due to incomplete distention on. Possibility of circumferential wall lesion not excluded. Consider follow-up colonoscopy. PERITONEUM: Unremarkable. No fluid collection. No free air. . Note again made of a stable appearing elliptical shaped fluid collection (measuring approximately 5.3 x 2.9 cm) within the subcutaneous tissues lower anterior right anterior abdominal wall with overlying skin thickening along its superior margin. Clinical correlation with history recommended. LYMPH NODES: Unremarkable. No enlarged lymph nodes. VASCULATURE: Unremarkable. No aortic aneurysm. BONES: Bilateral total hip replacements result in partial obscuration of the prostate gland, inferior margins of the seminal vesicles and and inferior margin of the urinary bladder. . Multilevel mild bilateral laminectomy defect extending from the L1-L2 through the L5-S1 levels. Posterior bony fixation mass extending over the same levels. Re- demonstrated are discectomy changes at the L5 S1 level with prostatic disc and presumed [place] bone graft tear with a fixation screw and washer traversing the upper S1 segment with washer presumably fixing the prostatic and [place] disc material in place. There is also discectomy changes at the L2-L3 level. Residual of presumed broken fixation screw traversing the left pedicle of the L2 segment. All these changes are stable. Note also made of what appears to represent residual contrast material within the distal lumbar and sacral thecal sac. . OTHER FINDINGS: Atrophic changes of the left psoas and iliacus muscles IMPRESSION: Borderline splenomegaly. Stable appearing left renal cyst. Bladder and prostate gland partially obscured by streak artifact arising from bilateral total hip replacements. Wall thickening urinary bladder likely due to incomplete distention and muscular hypertrophy. Clinical correlation recommended. Diverticulosis without radiographic evidence of acute diverticulitis. . Slight wall thickening of the rectum which could be due to incomplete distention however circumferential wall lesion not excluded. Consider followup colonoscopy. The extensive postoperative changes of the lumbar spine with what appears represent residual contrast material in the distal lumbar and sacral thecal sac. See above discussion for additional details. Stable appearing elliptical shaped fluid collection within the subcutaneous the fat lower right anterior abdominal wall. Atrophy left psoas and iliacus muscles
--- NOTE | 2017-12-10 14:21 | US ---
HISTORY: testicular pain TECHNIQUE: Realtime sonography through the scrotum with color and doppler flow. COMPARISON: None Available. FINDINGS: RIGHT TESTICLE: Measures 4.0 x 2.0 x 3.0 cm. Normal echotexture and flow. RIGHT EPIDIDYMIS: Epididymal head measures 1.0 x 0.6 x 0.6 cm. Grossly unremarkable appearance with normal flow. LEFT TESTICLE: Measures 4.0 x 1.8 x 2.6 cm. Note again made of a small 0.25 x 0.14 x 0.22 hyperechoic focus within the left testicle that could represent a tiny testicular microcalcification. . . This focus is of uncertain etiology though could represent a small intra testicular lipoma or microcalcification. Possibility of a testicular neoplasm cannot be excluded Normal flow. LEFT EPIDIDYMIS: Epididymal head measures 0.8 x 0.9 x 0.6 cm. Small cyst within the abdomen head measures approximately 0.4 x 0.2 x 0.4 cm. This may represent a small spermatocele. Normal flow. HYDROCELE: Bilateral VARICOCELE: Bilateral OTHER FINDINGS: None. IMPRESSION: No evidence of testicular torsion. Bilateral varicoceles and bilateral hydroceles. Re- demonstrated is a small elliptical shaped hyperechoic mass density within the left testicle of uncertain etiology. This could represent small lipoma there may or microcalcification. Possibility of a neoplasm not excluded . Urologic consultation is recommended however as the possibility of a malignant lesion cannot be excluded based on this study cannot be excluded. Small cyst within the head of the epididymis likely representing a spermatocele Findings discussed with doctor Carlos ly at 2 p.m. with written down and read back verification.
[2017-12-10 14:54] VITALS: BP 157/67; PULSE 80
== END 2017-12-10 14:53 | disposition home or self-care (01) ==
LOC: ED 10:21
DX: N50.819 Testicular pain, unspecified (principal); R10.9 Unspecified abdominal pain; I10 Essential (primary) hypertension
CPT/HCPCS: 74176; 80053; 81001; 83690; 83735; 85025; 85610; 85730; 87086; 93975; 96360; 99283; J7030

== ENCOUNTER 2018-01-21 10:56 | Emergency (ER) | payer BC, MEDICARE ==
[2018-01-21 10:57] VITALS: PULSE 61
[2018-01-21 11:07] VITALS: BMI 34.5
[2018-01-21 11:22] VITALS: RESP 18
--- NOTE | 2018-01-21 11:24 | ED PDOC ---
Arrival/HPI - General Chief Complaint: Shortness Of Breath Time Seen by Provider: 01/21/18 11:09 Historian: Patient - History of Present Illness Narrative History of Present Illness (Text): 01/21/18 11:26 pt p/w + ~ 1 month onset of sob, at times exertional sob; pt states symptoms had been progressively worsening, especially over the last 2 weeks; pt also states he has not been feeling well; easily fatigued/tired, + severe weakness/ lightheadedness is noted; pt states today he was particularly weak while working ; pt states no LOC but he was close to; pt also noted chest pain/substernal, non -radiating occurring last night, intermittent, at most pain was 8/10; pt states he describes it more as discomfort not as pain; pt also noted weight loss ~ 20lbs over 1 month, unintentional, poor appetite; pt also describes no fever/ sweats, + chills, no palpitations, no abd pain, no n/v, no urinary changes, ? bowel changes, no fall/trauma/sick contact, no travel; pt recently was evaluated by Dr Mcarthur and had repeate Chest CT performed ~ 2 weeks ago and showed tracheal lesion?; pt does not know what that means but is concerned; pt also had spoke to Dr Rivera but did not receive the answer he was hoping for; pt became alarmed with the symptoms today and came to ED for further eval; pt states no LOC; pt denied other complaints; pt is here for further eval. PCP: Dr Rivera Pulm: Dr Mcarthur Time/Duration: Other (~ 1 month) Symptom Onset: Gradual Symptom Course: Intermittent, Worsening Quality: Pressure, Tightness Severity Level: 8, Severe Activities at Onset: Other (exertion) Context: Exertion, Work Past Medical History - Provider Review Nursing Documentation Reviewed: Yes - Travel History Have you recently traveled outside [place] w/in the past 3 mons?: No - Past History Past History: No Previous - Infectious Disease Hx of Infectious Diseases: None - Tetanus Immunization Tetanus Immunization: Unknown - Cardiac Hx Pacemaker: No - Pulmonary Hx Asthma: Yes - Neurological Hx Paralysis: No - HEENT Hx HEENT Disorder: No - Renal Hx Renal Disorder: No - Endocrine/Metabolic Hx Endocrine Disorders: No - Hematological/Oncological Hx Blood Transfusions: No Hx Blood Transfusion Reaction: No - Integumentary Hx Dermatological Disorder: No - Musculoskeletal/Rheumatological Hx Musculoskeletal Disorders: Yes - Gastrointestinal Hx Gastrointestinal Disorders: No - Genitourinary/Gynecological Hx Genitourinary Disorders: No - Psychiatric Hx Psychophysiologic Disorder: No Hx Substance Use: No - Surgical History Other/Comment: R hip r/p. L knee r/p - Anesthesia Hx Anesthesia Reactions: No (DIFFICULT INTUBATION R/T NECK PROBLEMS) - Suicidal Assessment Feels Threatened In Home Enviroment: No Family/Social History - Physician Review Nursing Documentation Reviewed: Yes Family/Social History: No Known Family HX Smoking Status: Never Smoked Hx Alcohol Use: No Hx Substance Use: No Hx Substance Use Treatment: No Allergies/Home Meds Allergies/Adverse Reactions: Allergies strawberry Allergy (Intermediate, Verified 01/21/18 11:07) RASH tobramycin Allergy (Intermediate, Verified 01/21/18 11:07) VERTIGO/RASH Home Medications: Home Meds Medication Instructions Recorded Confirmed Hydromorphone HCl [Dilaudid] 2 mg PO TID PRN 09/06/14 01/21/18 Dicyclomine [Bentyl] 20 mg PO BID 10/16/15 01/21/18 Warfarin [Coumadin] 8 mg PO 01/14/16 01/21/18 Furosemide [Lasix] 40 mg PO QAM 03/17/16 01/21/18 Oxybutynin [Ditropan Tab] 10 mg PO QAM 10/31/16 01/21/18 Montelukast [Singulair] 10 mg PO QPM 01/13/17 01/21/18 Losartan Potassium 50 mg PO QPM 01/23/17 01/21/18 Latanoprost 0.005% Opht [Xalatan 1 drp BOTHEYES 04/05/17 01/21/18 Opht] Albuterol Sulfate [Proair Hfa] 2 puff IH Q4 PRN 08/31/17 01/21/18 Flecainide [Tambocor] 50 mg PO BID 08/31/17 01/11/18 Metoprolol Tartrate [Lopressor] 50 mg PO 08/31/17 01/21/18 Lactobacillus Combination No.8 1 cap PO QAM 01/11/18 01/21/18 [Adult Probiotic] Review of Systems - Review of Systems Constitutional: Fatigue, Weight Change Eyes: Normal ENT: Normal Respiratory: SOB. absent: Cough, Sputum Cardiovascular: Chest Pain. absent: Palpitations, Edema Gastrointestinal: Normal. absent: Abdominal Pain Genitourinary Male: Normal Musculoskeletal: Normal Skin: Normal Neurological: Dizziness. absent: Headache Endocrine: Normal Hemo/Lymphatic: Normal Psychiatric: Normal Physical Exam - Physical Exam Narrative Physical Exam (Text): 01/21/18 11:32 General: alert/awake, GCS = 15, oriented x 3, resting in bed, mildly uncomfortable, cooperative, interactive; NAD Head: NC/AT EYE: PERRLA, EOMI, sclera anicteric, no nystagmus, no photophobia; visual field intact b/l Facial: WNL Oral: uvula/tongue are midline, no exudate/lesions, no drooling/stridor, no dysphonia; intact dentitions NECK: intact ROM, no midline tenderness, no nuchal rigidity, no meningeal signs ; no step off Chest: CTA b/l, no w/r/r; no tachypenia, no accessory muscle use noted Cardiac: +S1, +S2, no m/r/r, no tachycardia Abdominal: +BS, soft/nd/nt, well nourished/obese male patient; no masses/rebound /guarding/rigidity; no dumont's sign, no mcburney's point tenderness Extremities: intact ROM, strength 5/5 grossly intact in all limbs, neurovasc intact b/l; + ambulatory; reflex +2/2; no pitting edema noted b/l, no marvel's sign b/l BACK: no step off, no midline tenderness, NO crepitus, no gross deformities noted; Intact ROM SKIN: cap refill < 1 sec, no ulcerations, no petechiae, no rashes; no gross pallor NEURO: CNII-XII WNL, no facial asymmetries, no slurr speech, oriented x 3 NIH stroke scale ~ 0 Psych: normal insight, normal affect; follows command with ease Vital Signs Reviewed: Yes Vital Signs Temp Pulse Resp BP Pulse Ox 01/21/18 15:29 98.0 F 65 18 127/80 99 01/21/18 11:22 97.9 F 60 18 122/97 H 97 01/21/18 11:13 19 97 Temperature: Afebrile Blood Pressure: Normal Pulse: Regular Respiratory Rate: Normal Appearance: Positive for: Well-Appearing, Non-Toxic, Uncomfortable (mild). No: Ill-Appearing, Cachectic Pain Distress: None Mental Status: Positive for: Alert and Oriented X 3 - Systems Exam Head: Present: Atraumatic, Normocephalic Medical Decision Making ED Course and Treatment: 01/21/18 11:35 Impression: sob/chest pain, recent abnl CT chest findings i have consider all the differential diagnosis regarding pt's chief medical complaints/clinical findings, including but are not limited to: sob/chest pain, heart score A/P: chest pain/sob, abnl recent CT chest finding - labs - iv - acs eval - supportive care - observe/reevaluation 01/21/18 15:[address] Rivera who was made aware of patient's emergent complaints, diagnostic finds, and emergency department management/txt. Recommends patient for outpt f/u, after 2 negative trops. 01/21/18 15:30 pt denied any chest pain currently pt felt improved Pt made aware of medical results, due to patient's chest pain complaints of unknown etiology with low heart score (heart score ~ 2) and less likely ACS, will obtain 2nd Trop in 4-6 hour intervals and reassess patient; pt can be dispositioned after the 2nd trop. Pt is made aware of my plan, Patient refuses however, states he feels improved and would like to be discharged home pt will be leaving AMA and refused 2nd trop vital signs remained stable Leaving Against Medical Advice (AMA): The patient is choosing to leave against medical advice. I have personally explained to the patient that choosing to do so may result in permanent bodily harm or . I have discussed at great length that without further evaluation and monitoring there may be unforeseen circumstances and/or deterioration causing permanent bodily harm or as a result of their choice. The patient is alert, oriented, and shows the mental capacity to make clear decisions regarding the patients health care at this time. The patient continues to wish to leave against medical advice. In light of the patients decision to leave against medical advice, follow-up has been arranged and the patient is aware of the importance to following up as instructed. The patient has been advised that they should return to the emergency room immediately if they change their mind at any time, or if their condition begins to change or worsen in any way. pt is aware that potential life-threatening illness remains and pt can lose limb /or worse case, can pt is aware that he is to see HIS doctor as soon as possible pt is aware that if he changes his mind, he is encouraged to return to ED immediately for further care/management pt expressed understanding attempt to contact Dr Mcarthur was unsuccessful; dr Mcarthur is away and there is no one taking his calls pt is made aware of my discussions with Dr Rivera as well as my attempt to speak to Dr Mcarthur pt will be leaving AMA Re-evaluation Time: 15:08 Reassessment Condition: Improved - Lab Interpretations Lab Results: 01/21/18 11:57 01/21/18 13:20 Lab Results 01/21/18 13:20: PT 29.5 H, INR 2.54, APTT 40.5 H 01/21/18 13:20: Sodium 143, Potassium 4.1, Chloride 106, Carbon Dioxide 29, Anion Gap 12, BUN 14, Creatinine 0.8, Est GFR ( Amer) > 60, Est GFR (Non- Af Amer) > 60, Random Glucose 89, Calcium 8.7, Magnesium 1.9, Total Bilirubin 0.8, AST 27, ALT 41, Alkaline Phosphatase 126, Lactate Dehydrogenase 660, Total Creatine Kinase 297 H, CK-MB (CK-2) 4.0 H, CK-MB (CK-2) % Cancelled, Troponin I < 0.01, NT-Pro-B Natriuret Pep 285, Total Protein 7.1, Albumin 3.8, Globulin 3.2 , Albumin/Globulin Ratio 1.2 01/21/18 11:57: TSH 3rd Generation 1.97 01/21/18 11:57: PT Cancelled, INR Cancelled, APTT Cancelled 01/21/18 11:57: WBC 5.3 D, RBC 4.36, Hgb 12.6 L, Hct 37.2 L, MCV 85.3, MCH 28.9 , MCHC 33.9, RDW 14.9 H, Plt Count 64 L, MPV 9.7, Gran % 63.7, Lymph % (Auto) 27.9, Mcdonough % (Auto) 5.8, Eos % (Auto) 2.4, Baso % (Auto) 0.2, Gran # 3.40, Lymph # (Auto) 1.5, Mcdonough # (Auto) 0.3, Eos # (Auto) 0.1, Baso # (Auto) 0.01 I have reviewed the lab results: Yes Interpretation: All labs normal - RAD Interpretation Narrative RAD Interpretations (Text): 01/21/18 12:53 Date of service: 01/21/2018 HISTORY: chest pain COMPARISON: 08/21/2017 FINDINGS: LUNGS: No active pulmonary disease. PLEURA: No significant pleural effusion identified, no pneumothorax apparent. CARDIOVASCULAR: Normal. OSSEOUS STRUCTURES: No significant abnormalities. VISUALIZED UPPER ABDOMEN: Normal. OTHER FINDINGS: None. IMPRESSION: No active disease. Radiology Orders: 01/21/18 11:18 CHEST PORTABLE [RAD] Stat Director Security Risk Management: Radiologist - EKG Interpretation EKG Interpretation (Text): 01/21/18 13:09 Sinus hunter at 50 bpm, LAD, RBBB, no ectopy, no st changes, non-specific T wave abnl, ABNL EKG; no gross changes compare with old ekg 12/2017 Interpreted by ED Physician: Yes Type: 12 lead EKG Comparison: Similar to previous EKG - Medication Orders Current Medication Orders: Discontinued Medications Aspirin (Aspirin) 325 mg PO STAT STA Stop: 01/21/18 12:05 Last Admin: 01/21/18 12:46 Dose: Not Given Non-Admin Reason: Patient Refused Nitroglycerin (Nitro-Bid 2% Oint) 1 ea TOP STAT STA Stop: 01/21/18 12:05 Last Admin: 01/21/18 12:46 Dose: Not Given Non-Admin Reason: Patient Refused Disposition/Present on Arrival - Present on Arrival Any Indicators Present on Arrival: No History of DVT/PE: Yes History of Uncontrolled Diabetes: No Urinary Catheter: No History of Decub. Ulcer: No History Surgical Site Infection Following: None - Disposition Have Diagnosis and Disposition been Completed?: Yes Diagnosis: Chest pain of unknown etiology, Shortness of breath, Weakness, General medical exam Disposition: AGAINST MEDICAL ADVICE Disposition Time: 15:23 Patient Plan: Other (AMA) Condition: STABLE Discharge Instructions (ExitCare): Chest Pain, Shortness of Breath (Dyspnea), Chest Pain (ED), Weakness (ED) Print Language: OCCITAN Additional Instructions: you are leaving against medical advice potential life-threatening illness remains and pt can lose limb/or worse case, can you are to see your doctor as soon as possible if you change your mind, you are encouraged to return to ED immediately for further care/management Referrals: Raciel Rivera MD [Primary Care Provider] - Follow up with primary Forms: [employer] (Togolese)
--- NOTE | 2018-01-21 11:37 | ED PDOC ---
Arrival/HPI - General Chief Complaint: Shortness Of Breath Time Seen by Provider: 01/21/18 11:09 Past Medical History - Provider Review Nursing Documentation Reviewed: Yes - Past History Past History: No Previous - Infectious Disease Hx of Infectious Diseases: None - Tetanus Immunization Tetanus Immunization: Unknown - Cardiac Hx Pacemaker: No - Pulmonary Hx Asthma: Yes - Neurological Hx Paralysis: No - HEENT Hx HEENT Disorder: No - Renal Hx Renal Disorder: No - Endocrine/Metabolic Hx Endocrine Disorders: No - Hematological/Oncological Hx Blood Transfusions: No Hx Blood Transfusion Reaction: No - Integumentary Hx Dermatological Disorder: No - Musculoskeletal/Rheumatological Hx Musculoskeletal Disorders: Yes - Gastrointestinal Hx Gastrointestinal Disorders: No - Genitourinary/Gynecological Hx Genitourinary Disorders: No - Psychiatric Hx Psychophysiologic Disorder: No Hx Substance Use: No - Surgical History Other/Comment: R hip r/p. L knee r/p - Anesthesia Hx Anesthesia Reactions: No (DIFFICULT INTUBATION R/T NECK PROBLEMS) - Suicidal Assessment Feels Threatened In Home Enviroment: No Family/Social History - Physician Review Nursing Documentation Reviewed: Yes Smoking Status: Never Smoked Hx Alcohol Use: No Hx Substance Use: No Hx Substance Use Treatment: No Allergies/Home Meds Allergies/Adverse Reactions: Allergies strawberry Allergy (Intermediate, Verified 01/21/18 11:07) RASH tobramycin Allergy (Intermediate, Verified 01/21/18 11:07) VERTIGO/RASH Home Medications: Home Meds Medication Instructions Recorded Confirmed Hydromorphone HCl [Dilaudid] 2 mg PO TID PRN 09/06/14 01/21/18 Dicyclomine [Bentyl] 20 mg PO BID 10/16/15 01/21/18 Warfarin [Coumadin] 8 mg PO 01/14/16 01/21/18 Furosemide [Lasix] 40 mg PO QAM 03/17/16 01/21/18 Oxybutynin [Ditropan Tab] 10 mg PO QAM 10/31/16 01/21/18 Montelukast [Singulair] 10 mg PO QPM 01/13/17 01/21/18 Losartan Potassium 50 mg PO QPM 01/23/17 01/21/18 Latanoprost 0.005% Opht [Xalatan 1 drp BOTHEYSUSAN 04/05/17 01/21/18 Opht] Albuterol Sulfate [Proair Hfa] 2 puff IH Q4 PRN 08/31/17 01/21/18 Flecainide [Tambocor] 50 mg PO BID 08/31/17 01/11/18 Metoprolol Tartrate [Lopressor] 50 mg PO HS 08/31/17 01/21/18 Lactobacillus Combination No.8 1 cap PO QAM 01/11/18 01/21/18 [Adult Probiotic] Review of Systems - Physician Review All systems were reviewed & negative as marked: Yes Physical Exam Vital Signs Temp Pulse Resp BP Pulse Ox 01/21/18 11:22 97.9 F 60 18 122/97 H 97 01/21/18 11:13 19 97 Medical Decision Making - RAD Interpretation Radiology Orders: 01/21/18 11:18 CHEST PORTABLE [RAD] Stat - Scribe Statement The provider has reviewed the documentation as recorded by the Scribe Kat Henriquez All medical record entries made by the Scribe were at my direction and personally dictated by me. I have reviewed the chart and agree that the record accurately reflects my personal performance of the history, physical exam, medical decision making, and the department course for this patient. I have also personally directed, reviewed, and agree with the discharge instructions and disposition. Disposition/Present on Arrival - Present on Arrival History of DVT/PE: Yes History of Uncontrolled Diabetes: No Urinary Catheter: No History of Decub. Ulcer: No History Surgical Site Infection Following: None - Disposition Referrals: Raciel Rivera MD [Primary Care Provider] - Follow up with primary
[2018-01-21] MEDS ORDERED: Nitroglycerin 2% Ointment Foilpak UD TOP STA (12:04)
--- NOTE | 2018-01-21 12:11 | RAD ---
Date of service: 01/21/2018 HISTORY: chest pain COMPARISON: 08/21/2017 FINDINGS: LUNGS: No active pulmonary disease. PLEURA: No significant pleural effusion identified, no pneumothorax apparent. CARDIOVASCULAR: Normal. OSSEOUS STRUCTURES: No significant abnormalities. VISUALIZED UPPER ABDOMEN: Normal. OTHER FINDINGS: None. IMPRESSION: No active disease.
[2018-01-21 12:18] LABS: BASO # 0.01 K/mm3 (0.0-2.0); BASO % 0.2 % (0.0-3.0); EOS # 0.1 (0.0-0.7); EOS % 2.4 % (1.5-5.0); GRAN # 3.4 (1.4-6.5); GRAN % 63.7 % (50.0-68.0); HEMOGLOBIN 12.6 g/dL (14.0-18.0); LYMPH # 1.5 (1.2-3.4); LYMPH % 27.9 % (22.0-35.0); MEAN CELL VOLUME 85.3 fl (80.0-105.0); MEAN CORPUSCULAR HEMOGLOBIN 28.9 pg (25.0-35.0); MEAN CORPUSCULAR HGB CONC 33.9 g/dl (31.0-37.0); MEAN PLATELET VOLUME 9.7 fl (7.0-11.0); MONO # 0.3 (0.1-0.6); MONO % 5.8 % (1.0-6.0); RBC 4.36 10^6/uL (3.5-6.1); RED CELL DISTRIBUTION WIDTH 14.9 % (11.5-14.5); WHITE BLOOD COUNT 5.3 10^3/ul (4.5-11.0)
[2018-01-21 13:19] LABS: CALCIUM 8.7 mg/dL (8.4-10.5)
[2018-01-21 13:31] LABS: B-TYPE NATRIURETIC PEPTIDE 285 pg/mL (0-450)
[2018-01-21 13:33] LABS: INR 2.54; PARTIAL THROMBOPLASTIN TIME 40.5 Seconds (25.1-36.5); PROTHROMBIN TIME 29.5 SECONDS (9.4-12.5)
[2018-01-21 13:44] LABS: ALB/GLOB RATIO 1.2 (1.1-1.8); ALBUMIN 3.8 g/dL (3.0-4.8); ALT/SGPT 41 U/L (7-56); AST/SGOT 27 U/L (17-59); BLOOD UREA NITROGEN 14 mg/dL (7-21)
[2018-01-21 14:05] LABS: TROPONIN I < 0.01 ng/mL
[2018-01-21 14:13] LABS: GFR AFRICAN-AMERICAN > 60; GFR NON-AFRICAN AMERICAN > 60
[2018-01-21 15:30] VITALS: BP 127/80; PULSE 65; TEMP 98; O2SAT 99
--- NOTE | 2018-01-21 19:08 | CARD ---
APPROVED REPORT Date of service: 01/21/2018 EKG Measurement Heart [id number] <Conclusion> Marked sinus bradycardia Right bundle branch block Abnormal ECG
== END 2018-01-21 15:30 | disposition left against medical advice (07) ==
LOC: ED 10:56
DX: R07.9 Chest pain, unspecified (principal); R06.02 Shortness of breath; R53.1 Weakness; J45.909 Unspecified asthma, uncomplicated

== ENCOUNTER 2018-02-10 06:15 | Day surgery (SDC) | payer BC, MEDICARE ==
[2018-02-10 06:50] LABS: INR 1.31; PARTIAL THROMBOPLASTIN TIME 28.2 Seconds (25.1-36.5); PROTHROMBIN TIME 15.2 SECONDS (9.4-12.5)
[2018-02-10] MEDS ORDERED: Ofloxacin 0.3% Otic Soln ONE (07:17)
[2018-02-10] MEDS ORDERED: EPINEPHrine 1:1000 Nasal Sol(30mL) ONE (07:18)
[2018-02-10] MEDS ORDERED: Ciprofloxacin/Dexamethasone OTIC SUSP ONE (07:21)
[2018-02-10] MEDS ORDERED: Propofol 10 mg/ml Inj (20 ML) ONE (07:26)
[2018-02-10] MEDS ORDERED: Midazolam 2 MG/2 ML VIAL ONE (07:27)
[2018-02-10] MEDS ORDERED: Lidocaine PF 2% (5 ml) Inj (For Cardiac Arrhy) ONE (07:35)
[2018-02-10 08:26] VITALS: RESP 18
--- NOTE | 2018-02-10 08:37 | PCM.SURG1 ---
Surgeon's Initial Post Op Note - Surgeon's Notes Surgeon: Dr. Bautista Budget Assistant: April PGY2 Type of Anesthesia: General Endo Anesthesia Administered By: Dr. Almeida Pre-Operative Diagnosis: Recurrent L otitis media, suspected otosclerosis Operative Findings: see operative dictation Post-Operative Diagnosis: Recurrent L otitis media, suspected otosclerosis Operation Performed: Left myringotomy with t-tube placement Specimen/Specimens Removed: N/A Estimated Blood Loss: EBL {In ML}: 1 Blood Products Given: N/A Drains Used: No Drains Post-Op Condition: Good Date of Surgery/Procedure: 02/10/18 Time of Surgery/Procedure: 08:37
[2018-02-10] MEDS ORDERED: HYDROmorphone 0.5 mg/0.5 ml ISec IVP PRN (08:42)
[2018-02-10] MEDS ORDERED: Lactated Ringer's 1,000 ML IV SCH (08:45)
[2018-02-10] MEDS ORDERED: HYDROmorphone 0.5 mg/0.5 ml ISec ONE ×2 (09:13→09:31)
[2018-02-10] MEDS ORDERED: HYDROmorphone 0.5 mg/0.5 ml ISec IVP ONE ×2 (09:15→09:33)
[2018-02-10 10:06] VITALS: TEMP 97.6; O2SAT 95
[2018-02-10 10:52] VITALS: BP 168/68; PULSE 59
--- NOTE | 2018-02-10 13:50 | OP ---
Copied To: Otoniel Bautista DO Attending MD: Otoniel Bautista DO PROCEDURE DATE: 02/10/2018 PREOPERATIVE DIAGNOSIS: Left conductive hearing loss. POSTOPERATIVE DIAGNOSIS: Left conductive hearing loss. PROCEDURE: Left tympanostomy with T-tube insertion and removal of cerumen from the external auditory canal. SURGEON: Otoniel Bautista DO ANESTHESIA: General. ESTIMATED BLOOD LOSS: Minimal. OPERATIVE PROCEDURE: This is a 57-year-old white male who had experienced multiple tubes in the past and persistent left conductive hearing loss. The patient felt that he was hearing better with left tube in place, so decision was made to proceed with a left tympanostomy with insertion of the T-tube for long-term ventilation support. Preoperative diagnosis did confirm a conductive hearing loss on the left side with a C-curve consistent with eustachian tube dysfunction. The patient was also instructed that he may have an underlying otosclerotic process which he was well aware of prior to the surgery. The patient was prepped through a routine fashion ____ left external auditory canal. Tympanic membrane was examined with the use of operating microscope. Cerumen was suctioned from the external auditory canal and tympanic membrane was noted to be normal in appearance. An incision was made with myringotomy blade in anterior-inferior quadrant in a radial fashion and a T-tube was inserted through the myringotomy incision followed by Ciprodex otic suspension. The patient tolerated the procedure well, was without complications. He was returned to recovery room in stable condition. Otoniel Bautista DO
== END 2018-02-10 11:05 | disposition home or self-care (01) ==
LOC: SDS 06:15
PROVIDERS: ATTEND Otolaryngology
DX: H90.2 Conductive hearing loss, unspecified (principal); H66.92 Otitis media, unspecified, left ear; I10 Essential (primary) hypertension; E66.9 Obesity, unspecified; Z68.34 Body mass index [BMI] 34.0-34.9, adult
CPT/HCPCS: 36415; 69436; 85610; 85730; J1170; J2250; J2704; J3010; J7120 ×2

== ENCOUNTER 2018-04-22 11:09 | Inpatient (IN) | payer BC, MEDICARE ==
[2018-04-22 11:10] VITALS: PULSE 61
--- NOTE | 2018-04-22 11:33 | ED PDOC ---
Arrival/HPI - General Historian: Patient - History of Present Illness Narrative History of Present Illness (Text): 04/22/18 11:29 A 58 year old male, whose past medical history includes blood clots, presents to the emergency department complaining of dizziness and hypotension since earlier this morning. Patient reports he visited his primary care doctor, Dr. Rivera, for blood work when his blood pressure was found to be low prompting his doctor to send him to the emergency department. Patient reports experiencing dizziness and fatigue since earlier this morning and reports no current pain just weakness and slight intermittent nausea. Patient notes he has not eaten since last night in preparation for blood work appointment earlier this morning. Patient reports he is currently taking coumadin and had an INR 2 weeks ago with normal results. Patient denies any fever, chills, shortness of breath, chest pain, diarrhea, vomiting, urinary symptoms, back pain, neck pain, headache, or any other complaints. PMD: Dr. Rivera Time/Duration: 4-6 hours (Earlier this morning) Symptom Onset: Gradual Symptom Course: Unchanged Activities at Onset: Light Context: Other (Doctor's office) Past Medical History - Provider Review Nursing Documentation Reviewed: Yes - Past History Past History: No Previous - Infectious Disease Hx of Infectious Diseases: None - Tetanus Immunization Tetanus Immunization: Unknown - Cardiac Hx Pacemaker: No - Pulmonary Hx Asthma: Yes - Neurological Hx Paralysis: No - HEENT Hx HEENT Disorder: No - Renal Hx Renal Disorder: No - Endocrine/Metabolic Hx Endocrine Disorders: No - Hematological/Oncological Hx Blood Transfusions: No Hx Blood Transfusion Reaction: No - Integumentary Hx Dermatological Disorder: No - Musculoskeletal/Rheumatological Hx Musculoskeletal Disorders: Yes - Gastrointestinal Hx Gastrointestinal Disorders: No - Genitourinary/Gynecological Hx Genitourinary Disorders: No - Psychiatric Hx Emotional Abuse: No Hx Physical Abuse: No Hx Substance Use: No - Surgical History Other/Comment: R hip r/p. L knee r/p - Anesthesia Hx Anesthesia Reactions: No (DIFFICULT INTUBATION R/T NECK PROBLEMS) - Suicidal Assessment Feels Threatened In Home Enviroment: No Family/Social History - Physician Review Nursing Documentation Reviewed: Yes Family/Social History: Unknown Family HX Smoking Status: Never Smoked Hx Alcohol Use: No Hx Substance Use: No Hx Substance Use Treatment: No Allergies/Home Meds Allergies/Adverse Reactions: Allergies strawberry Allergy (Intermediate, Verified 01/21/18 11:07) RASH tobramycin Allergy (Intermediate, Verified 01/21/18 11:07) VERTIGO/RASH Home Medications: Home Meds Medication Instructions Recorded Confirmed Dicyclomine [Bentyl] 20 mg PO BID 10/16/15 04/22/18 Warfarin [Coumadin] 7 mg PO Q2W 01/14/16 04/22/18 Oxybutynin [Ditropan Tab] 10 mg PO QAM 10/31/16 04/22/18 Montelukast [Singulair] 10 mg PO QPM 01/13/17 04/22/18 Losartan Potassium 50 mg PO QPM 01/23/17 04/22/18 Metoprolol Tartrate [Lopressor] 50 mg PO HS 08/31/17 04/22/18 Albuterol Sulfate [Proair 117 mcg INH PRN PRN 04/22/18 04/22/18 Respiclick] Bimatoprost [Lumigan] 0.01 % BOTHEYES HS 04/22/18 04/22/18 Chlorthalidone [Hygroton] 25 mg PO DAILY 04/22/18 04/22/18 Lidocaine [Lidocaine Pain Relief] 5 % TOP Q12 04/22/18 04/22/18 Metoprolol Succinate [Toprol Xl] 100 mg PO DAILY 04/22/18 04/22/18 Pantoprazole Sodium [Protonix] 40 mg PO DAILY 04/22/18 04/22/18 Tamsulosin HCl [Flomax] 0.4 mg PO HS 04/22/18 04/22/18 Tapentadol HCl [Nucynta ER] 50 mg PO Q12 04/22/18 04/22/18 Review of Systems - Physician Review All systems were reviewed & negative as marked: Yes - Review of Systems Constitutional: absent: Fevers, Night Sweats Respiratory: absent: SOB Cardiovascular: absent: Chest Pain Gastrointestinal: Nausea (+slight intermittent nausea). absent: Diarrhea, Vomiting Genitourinary Male: absent: Urinary Output Changes Musculoskeletal: absent: Back Pain, Neck Pain Neurological: Dizziness. absent: Headache Physical Exam Vital Signs Reviewed: Yes Vital Signs Temp Pulse Resp BP Pulse Ox 04/22/18 11:21 98.2 F 67 18 107/75 100 Temperature: Afebrile Blood Pressure: Normal Pulse: Regular Respiratory Rate: Normal Appearance: Positive for: Well-Appearing, Non-Toxic, Comfortable Pain Distress: None Mental Status: Positive for: Alert and Oriented X 3 - Systems Exam Head: Present: Atraumatic, Normocephalic Pupils: Present: PERRL Extroacular Muscles: Present: EOMI Conjunctiva: Present: Normal Mouth: Present: Moist Mucous Membranes Neck: Present: Normal Range of Motion Respiratory/Chest: Present: Clear to Auscultation, Good Air Exchange. No: Respiratory Distress, Accessory Muscle Use Cardiovascular: Present: Irregular Rhythm (+irregular irregular rhythm) Abdomen: No: Tenderness, Distention, Peritoneal Signs Back: Present: Normal Inspection Upper Extremity: Present: Normal Inspection. No: Cyanosis, Edema Lower Extremity: Present: Edema (+trace edema bilaterally) Neurological: Present: GCS=15, CN II-XII Intact, Speech Normal Skin: Present: Warm, Dry, Normal Color. No: Rashes Psychiatric: Present: Alert, Oriented x 3, Normal Insight, Normal Concentration Medical Decision Making ED Course and Treatment: 04/22/18 11:30 Impression: 58 year old male presenting to the emergency department for hypoglycemia and dizziness. Plan: -- EKG -- Labs -- CBC -- COAGs -- Chest X-ray -- Cardizem -- IV fluids -- Reassess and disposition Prior Visits: Notes and results from previous visits were reviewed. Progress Notes: 04/22/18 11:30 EKG: Ordered, reviewed, and independently interpreted the EKG. Rate : 129 BPM Rhythm : Atrial Fibrillation Interpretation : Right bundle branch block, T wave abnormalities. 04/22/18 12:35 Procedure: Chest X-ray Impression: No active disease. No significant interval change compared to the prior examination(s). Dictator: Vadim Blevins MD 04/22/18 13:[address] Rivera who is aware and agrees with emergency department management plan to give patient cardizem p.o. and admit patient to remote telemetry for further observation. - Scribe Statement The provider has reviewed the documentation as recorded by the Scribmarkell Hale All medical record entries made by the Scribe were at my direction and personally dictated by me. I have reviewed the chart and agree that the record accurately reflects my personal performance of the history, physical exam, medical decision making, and the department course for this patient. I have also personally directed, reviewed, and agree with the discharge instructions and disposition. Disposition/Present on Arrival - Present on Arrival Any Indicators Present on Arrival: No History of DVT/PE: Yes History of Uncontrolled Diabetes: No Urinary Catheter: No History of Decub. Ulcer: No History Surgical Site Infection Following: None - Disposition Have Diagnosis and Disposition been Completed?: Yes Diagnosis: Rapid atrial fibrillation Disposition: HOSPITALIZED Disposition Time: 12:50 Condition: FAIR
[2018-04-22] MEDS ORDERED: Sodium Chloride 0.9% 1,000 ML IV SCH (11:45)
[2018-04-22 11:58] LABS: ALBUMIN 3.5 g/dL (3.0-4.8); ALT/SGPT 38 U/L (7-56); AST/SGOT 32 U/L (17-59); BLOOD UREA NITROGEN 20 mg/dL (7-21); CALCIUM 8.6 mg/dL (8.4-10.5); GFR NON-AFRICAN AMERICAN > 60
[2018-04-22 12:00] LABS: INR 1.91; PARTIAL THROMBOPLASTIN TIME 37.5 Seconds (25.1-36.5); PROTHROMBIN TIME 22.3 SECONDS (9.4-12.5)
--- NOTE | 2018-04-22 12:09 | RAD ---
Date of service: 04/22/2018 HISTORY: Hypotension and weakness. COMPARISON: 01/21/2018. FINDINGS: LUNGS: No active pulmonary disease. PLEURA: No significant pleural effusion identified, no pneumothorax apparent. CARDIOVASCULAR: No atherosclerotic calcification present No radiographic findings to suggest acute or significant cardiovascular disease. OSSEOUS STRUCTURES: No significant abnormalities. VISUALIZED UPPER ABDOMEN: Normal. OTHER FINDINGS: None. IMPRESSION: No active disease. No significant interval change compared to the prior examination(s).
[2018-04-22 12:12] LABS: B-TYPE NATRIURETIC PEPTIDE 537 pg/mL (0-450); TROPONIN I 0.05 ng/mL
[2018-04-22 12:16] LABS: CK-MB 4.1 ng/mL (0.0-3.6)
[2018-04-22 12:23] LABS: BASO # 0.02 K/mm3 (0.0-2.0); BASO % 0.2 % (0.0-3.0); EOS # 0.1 (0.0-0.7); EOS % 0.9 % (1.5-5.0); GRAN # 6.8 (1.4-6.5); GRAN % 72.3 % (50.0-68.0); HEMOGLOBIN 14.2 g/dL (14.0-18.0); LYMPH % 20.8 % (22.0-35.0); MEAN CELL VOLUME 87.9 fl (80.0-105.0); MEAN CORPUSCULAR HEMOGLOBIN 29.5 pg (25.0-35.0); MEAN CORPUSCULAR HGB CONC 33.6 g/dl (31.0-37.0); MEAN PLATELET VOLUME 8.9 fl (7.0-11.0); MONO # 0.5 (0.1-0.6); MONO % 5.8 % (1.0-6.0); RBC 4.81 10^6/uL (3.5-6.1); RED CELL DISTRIBUTION WIDTH 14.8 % (11.5-14.5); WHITE BLOOD COUNT 9.4 10^3/uL (4.5-11.0)
[2018-04-22] MEDS ORDERED: oxyCODONE 5 mg Immediate Release Tab PO STA (13:07)
[2018-04-22] MEDS ORDERED: Potassium Chloride 20 mEq ER Tab PO STA (14:02)
--- NOTE | 2018-04-22 15:28 | CARD ---
APPROVED REPORT Date of service: 04/22/2018 EKG Measurement Heart [id number] <Conclusion> Poor data quality, interpretation may be adversely affected Atrial fibrillation with rapid ventricular response Right bundle branch block T wave abnormality, consider inferior ischemia or digitalis effect Abnormal ECG
[2018-04-22 16:56] VITALS: BMI 37.3
[2018-04-22] MEDS ORDERED: Influenza Vaccine 60 mcg/0.5 mL SYR (4YR UP) IM ONE (17:00)
[2018-04-22] MEDS ORDERED: Pneumococcal 23-Valent Vaccine IM ONE (17:00)
[2018-04-22] MEDS ORDERED: Metoprolol 1 mg/ml Inj IVP PRN (17:44)
--- NOTE | 2018-04-22 17:58 | CP.PCM.HP ---
<Edilberto Pal - Last Filed: 04/22/18 20:39> History of Present Illness - History of Present Illness History of Present Illness: Edilberto Demarco PGY 2 IM H&P note for Dr. Rivera CC: A. fib Mr. Mendoza is a 58-year-old male with a PMH of paroxysmal A. fib (rate controlled, on Coumadin), DVT/PE, extensive history of spine injuries post multiple spine surgeries with associated chronic pain, chronic knee pain, HTN, TRACEE, COPD, GERD and obesity who presented to the ED after seeing Dr. Rivera in the office for overall feeling lethargic. The patient states that he had Armenian food last night for dinner, and that he is sensitive to MSG, and he feels that that could be the cause of why he was feeling ill this morning. He states that upon awakening, he had very little energy, did not feel like getting out of bed and going about his business. He had an appointment with his industrial sweeper cleaner which she went to for routine care, and then went to Dr. Rivera who noted his BP to be low, with SBP <100, and recommended the patient to come to the ED to be evaluated. He does state that he felt palpitations, but denied any active chest pain, shortness of breath, nausea/vomiting, diaphoresis, fevers/chills, cough, leg swelling, numbness/tingling, or any changes in his appetite or urinary/bowel habits. 12 point ROS was reviewed and is otherwise unremarkable. In the ED, patient was found to be in A. fib with RVR, with HR at 129 bpm. EKG also showed RBBB, with prolonged QTc. Chest x-ray was unremarkable. Patient was given Cardizem 30 mg p.o., and his HR improved. When evaluated by me, HR is in low 100s, and the patient is comfortable and in no acute distress. PMD: Dr. Rivera Cardio: Dr. Leija Pain: Dr. Garcia PMH: As above PSH: Multiple orthopedic surgeries in C-spine, L-spine and knees Meds: As per MAR, reviewed Allergies: [place], tobramycin SHx: Uses cane for assistance with ambulation. Denies tobacco, EtOH or drug use FHx: Noncontributory Present on Admission - Present on Admission Any Indicators Present on Admission: Yes History of DVT/PE: Yes Review of Systems - Review of Systems All systems: reviewed and no additional remarkable complaints except (as per HPI) Past Patient History - Infectious Disease Hx of Infectious Diseases: None - Tetanus Immunizations Tetanus Immunization: Unknown - Past Medical History & Family History Past Medical History?: Yes Past Family History: Reviewed and not pertinent - Past Social History Smoking Status: Never Smoked Alcohol: None Drugs: Denies Home Situation {Lives}: With Family - CARDIAC Hx Cardiac Disorders: Yes Hx Cardia Arrhythmia: Yes (AFIB) Hx Hypercholesterolemia: Yes Hx Hypertension: Yes Hx Pacemaker: No - PULMONARY Hx Respiratory Disorders: Yes Hx Asthma: Yes Hx Chronic Obstructive Pulmonary Disease (COPD): Yes Hx Pulmonary Embolism: Yes - NEUROLOGICAL Hx Neurological Disorder: Yes Hx Dizziness: Yes - HEENT Hx HEENT Problems: No - RENAL Hx Chronic Kidney Disease: No - ENDOCRINE/METABOLIC Hx Endocrine Disorders: No - HEMATOLOGICAL/ONCOLOGICAL Hx Blood Disorders: Yes Other/Comment: hx of DVT - INTEGUMENTARY Hx Dermatological Problems: Yes Other/Comment: SACR TO BACK,LEFT KNEE - MUSCULOSKELETAL/RHEUMATOLOGICAL Hx Musculoskeletal Disorders: Yes Hx Back Pain: Yes Hx Degenerative Joint Disease: Yes Hx Falls: Yes Hx Herniated Disk: Yes Hx Spinal Stenosis: Yes Hx Unsteady Gait: Yes (CANE) - GASTROINTESTINAL Hx Gastrointestinal Disorders: Yes Hx Gastroesophageal Reflux: Yes - GENITOURINARY/GYNECOLOGICAL Hx Genitourinary Disorders: Yes Hx Prostate Problems: Yes (BPH) - PSYCHIATRIC Hx Psychophysiologic Disorder: Yes Hx Anxiety: Yes Hx Depression: Yes Hx Emotional Abuse: No Hx Physical Abuse: No Hx Substance Use: No - SURGICAL HISTORY Hx Surgeries: Yes Hx Cardiac Catheterization: Yes Hx Orthopedic Surgery: Yes Other/Comment: R hip r/p. L knee r/p X2 - ANESTHESIA Hx Anesthesia Reactions: No (DIFFICULT INTUBATION R/T NECK PROBLEMS) Meds Allergies/Adverse Reactions: Allergies Allergy/AdvReac Type Severity Reaction Status Date / Time strawberry Allergy Intermediate RASH Verified 01/21/18 11:07 tobramycin Allergy Intermediate VERTIGO/JAMES Verified 01/21/18 11:07 H Physical Exam - Constitutional Appears: Well, Non-toxic, No Acute Distress - Head Exam Head Exam: ATRAUMATIC, NORMAL INSPECTION, NORMOCEPHALIC - Eye Exam Eye Exam: Conjunctival injection, EOMI, Normal appearance - ENT Exam ENT Exam: Mucous Membranes Moist, Normal Exam, Normal External Ear Exam - Neck Exam Neck exam: Positive for: Full Rom, Normal Inspection. Negative for: Tenderness, Thyromegaly - Respiratory Exam Respiratory Exam: NORMAL BREATHING PATTERN. absent: Rales, Rhonchi, Wheezes, Respiratory Distress - Cardiovascular Exam Cardiovascular Exam: Tachycardia, Irregular Rhythm, +S1, +S2 - GI/Abdominal Exam GI & Abdominal Exam: Normal Bowel Sounds, Soft. absent: Distended, Tenderness - Extremities Exam Extremities exam: Positive for: full ROM, normal inspection. Negative for: pedal edema, tenderness - Back Exam Back exam: NORMAL INSPECTION - Neurological Exam Neurological exam: Alert, CN II-XII Intact, Oriented x3 - Psychiatric Exam Psychiatric exam: Normal Affect, Normal Mood - Skin Skin Exam: Normal Color, Warm Results - Vital Signs Recent Vital Signs: Last Vital Signs Temp 98 F 04/22/18 17:11 Pulse 99 H 04/22/18 17:45 Resp 18 04/22/18 17:11 BP 119/75 04/22/18 17:11 Pulse Ox 98 04/22/18 17:11 - Labs Result Diagrams: 04/22/18 11:40 04/22/18 11:40 Labs: Laboratory Results - last 24 hr 04/22/18 04/22/18 04/22/18 11:40 11:40 11:40 WBC 9.4 RBC 4.81 Hgb 14.2 Hct 42.3 MCV 87.9 MCH 29.5 MCHC 33.6 RDW 14.8 H Plt Count 198 MPV 8.9 Gran % 72.3 H Lymph % (Auto) 20.8 L Thomas % (Auto) 5.8 Eos % (Auto) 0.9 L Baso % (Auto) 0.2 Gran # 6.80 H Lymph # (Auto) 2.0 Thomas # (Auto) 0.5 Eos # (Auto) 0.1 Baso # (Auto) 0.02 PT 22.3 H INR 1.91 APTT 37.5 H Sodium 142 Potassium 3.3 L Chloride 103 Carbon Dioxide 31 Anion Gap 11 BUN 20 Creatinine 1.1 Est GFR ( Amer) > 60 Est GFR (Non-Af Amer) > 60 Random Glucose 113 H Calcium 8.6 Magnesium 1.7 Total Bilirubin 0.5 AST 32 ALT 38 Alkaline Phosphatase 119 Lactate Dehydrogenase 727 H Total Creatine Kinase 429 H CK-MB (CK-2) 4.1 H CK-MB (CK-2) % Cancelled Troponin I 0.05 D NT-Pro-B Natriuret Pep 537 H Total Protein 6.9 Albumin 3.5 Globulin 3.4 Albumin/Globulin Ratio 1.0 L Assessment & Plan - Assessment and Plan (Free Text) Assessment: 58-year-old male with a PMH of paroxysmal A. fib (rate controlled, on Coumadin), DVT/PE, extensive history of spine injuries post multiple spine surgeries with associated chronic pain, chronic knee pain, HTN, TRACEE, COPD, GERD and obesity who presented to the ED after seeing Dr. Rivera in the office for overall feeling lethargic, found to be in Afib w/ RVR. Rate controlled with Cardizem x1. Patient will be admitted for observation on telemetry unit. Prior charts were reviewed, and recent TSH was noted as normal. HR is controlled, and patient is in NAD. INR is subtherapeutic, so Coumadin will be given and INR monitored carefully with Cardiology consult. CPAP will be ordered for sleep. Chronic pain will be managed. Plan: - trend troponin q6 and AM - EKG in AM - Echo ordered - A1C ordered - Lopressor and Toprol home dose ordered - Cardizem and Lopressor PRN ordered w/ holding parameters for BP - Cardiology consulted for Afib w/ subtherapeutic INR - Coumadin 2mg ordered for tonight (Decreased home dose) due to labile INR hx - monitor INR AM, and adjust accordingly - cont Chlorthalidone and Losartan for HTN - cont Bentyl for IBS - cont Xalatan eye drops - cont Lidoderm and Percocet PRN pain - cont Singulair and Duoneb for asthma - cont Oxybutynin and flomax due to bph - monitor K next AM - NS @ 100 - CPAP HS - PTX for GI ppx and hx GERD - HHD - PT/OT - VS q4 - further recs per Dr. Rivera Case was reviewed and discussed with attending, Dr. Miguel Pal PGY2 <Raciel Rivera - Last Filed: 04/23/18 10:50> Results - Vital Signs Recent Vital Signs: Last Vital Signs Temp 97.4 F L 04/23/18 06:00 Pulse 150 H 11/10/18 10:43 Resp 19 04/23/18 06:00 BP 130/91 H 04/23/18 10:43 Pulse Ox 97 04/23/18 06:00 - Labs Result Diagrams: 04/23/18 08:45 04/23/18 08:45 Labs: Laboratory Results - last 24 hr 04/22/18 04/22/18 04/22/18 11:40 11:40 11:40 WBC 9.4 RBC 4.81 Hgb 14.2 Hct 42.3 MCV 87.9 MCH 29.5 MCHC 33.6 RDW 14.8 H Plt Count 198 MPV 8.9 Gran % 72.3 H Lymph % (Auto) 20.8 L Thomas % (Auto) 5.8 Eos % (Auto) 0.9 L Baso % (Auto) 0.2 Gran # 6.80 H Lymph # (Auto) 2.0 Thomas # (Auto) 0.5 Eos # (Auto) 0.1 Baso # (Auto) 0.02 PT 22.3 H INR 1.91 APTT 37.5 H Sodium 142 Potassium 3.3 L Chloride 103 Carbon Dioxide 31 Anion Gap 11 BUN 20 Creatinine 1.1 Est GFR ( Amer) > 60 Est GFR (Non-Af Amer) > 60 Random Glucose 113 H Calcium 8.6 Phosphorus Magnesium 1.7 Total Bilirubin 0.5 AST 32 ALT 38 Alkaline Phosphatase 119 Lactate Dehydrogenase 727 H Total Creatine Kinase 429 H CK-MB (CK-2) 4.1 H CK-MB (CK-2) % Cancelled Troponin I 0.05 D NT-Pro-B Natriuret Pep 537 H Total Protein 6.9 Albumin 3.5 Globulin 3.4 Albumin/Globulin Ratio 1.0 L 04/22/18 04/23/18 04/23/18 19:39 01:00 08:45 WBC 7.8 RBC 4.93 Hgb 14.7 Hct 43.3 MCV 87.8 MCH 29.8 MCHC 33.9 RDW 15.1 H Plt Count 144 MPV 9.1 Gran % Lymph % (Auto) Thomas % (Auto) Eos % (Auto) Baso % (Auto) Gran # Lymph # (Auto) Thomas # (Auto) Eos # (Auto) Baso # (Auto) PT INR APTT Sodium Potassium Chloride Carbon Dioxide Anion Gap BUN Creatinine Est GFR ( Amer) Est GFR (Non-Af Amer) Random Glucose Calcium Phosphorus Magnesium Total Bilirubin AST ALT Alkaline Phosphatase Lactate Dehydrogenase 836 H 617 Total Creatine Kinase 365 H 353 H CK-MB (CK-2) 3.5 3.7 H CK-MB (CK-2) % Cancelled Cancelled Troponin I 0.05 0.04 NT-Pro-B Natriuret Pep Total Protein Albumin Globulin Albumin/Globulin Ratio 04/23/18 04/23/18 08:45 08:45 WBC RBC Hgb Hct MCV MCH MCHC RDW Plt Count MPV Gran % Lymph % (Auto) Thomas % (Auto) Eos % (Auto) Baso % (Auto) Gran # Lymph # (Auto) Thomas # (Auto) Eos # (Auto) Baso # (Auto) PT 22.8 H INR 1.96 APTT Sodium 142 Potassium 3.6 Chloride 108 H Carbon Dioxide 25 Anion Gap 12 BUN 20 Creatinine 0.9 Est GFR ( Amer) > 60 Est GFR (Non-Af Amer) > 60 Random Glucose 105 Calcium 8.3 L Phosphorus 3.0 Magnesium 1.8 Total Bilirubin 0.6 AST 34 ALT 32 Alkaline Phosphatase 121 Lactate Dehydrogenase 772 H Total Creatine Kinase 404 H CK-MB (CK-2) 3.9 H CK-MB (CK-2) % Cancelled Troponin I 0.03 D NT-Pro-B Natriuret Pep Total Protein 7.4 Albumin 3.8 Globulin 3.6 Albumin/Globulin Ratio 1.1 Assessment & Plan - Assessment and Plan (Free Text) Plan: Pt seen and examined by me. I reviewed the note of the special forces medical sergeant and agree with it. I reviewed the labs and medications. See my note from today for further details. He will stay here and be followed while he is on Cardizem.
[2018-04-22 20:03] LABS: TROPONIN I 0.05 ng/mL
[2018-04-22 20:09] LABS: CK-MB 3.5 ng/mL (0.0-3.6)
[2018-04-22] MEDS ORDERED: Albuterol-Ipratrop 3 mg / 0.5 (3 ml) UD IH PRN (21:12)
[2018-04-22] MEDS: Lidocaine 5% Patch TD SCH (22:03)
[2018-04-22] MEDS: Latanoprost 2.5 ml Opht Soln OU SCH (22:03)
[2018-04-23 01:56] LABS: TROPONIN I 0.04 ng/mL
[2018-04-23] MEDS: Oxycodone/Acetaminophen 5/325 mg Tab PO PRN ×2 (01:58→08:32)
[2018-04-23 02:05] LABS: CK-MB 3.7 ng/mL (0.0-3.6)
--- NOTE | 2018-04-23 08:45 | CARD ---
APPROVED REPORT Date of service: 04/23/2018 EKG Measurement Heart [id number] <Conclusion> Atrial fibrillation with rapid ventricular response Right bundle branch block T wave abnormality, consider inferior ischemia or digitalis effect Abnormal ECG
[2018-04-23] MEDS: Pantoprazole 40 mg EC Tab PO SCH (09:02)
[2018-04-23] MEDS: Lidocaine 5% Patch TD SCH ×3 (09:05→23:47)
[2018-04-23 09:09] LABS: INR 1.96; PROTHROMBIN TIME 22.8 SECONDS (9.4-12.5)
[2018-04-23 09:15] LABS: HEMOGLOBIN 14.7 g/dL (14.0-18.0); MEAN CELL VOLUME 87.8 fl (80.0-105.0); MEAN CORPUSCULAR HEMOGLOBIN 29.8 pg (25.0-35.0); MEAN CORPUSCULAR HGB CONC 33.9 g/dl (31.0-37.0); MEAN PLATELET VOLUME 9.1 fl (7.0-11.0); RBC 4.93 10^6/uL (3.5-6.1); RED CELL DISTRIBUTION WIDTH 15.1 % (11.5-14.5); WHITE BLOOD COUNT 7.8 10^3/uL (4.5-11.0)
[2018-04-23] MEDS: Potassium Chloride 20 mEq ER Tab PO SCH ×2 (09:15→17:16)
[2018-04-23 09:17] LABS: ALB/GLOB RATIO 1.1 (1.1-1.8); ALBUMIN 3.8 g/dL (3.0-4.8); ALT/SGPT 32 U/L (7-56); AST/SGOT 34 U/L (17-59); BLOOD UREA NITROGEN 20 mg/dL (7-21); CALCIUM 8.3 mg/dL (8.4-10.5); GFR NON-AFRICAN AMERICAN > 60
[2018-04-23 09:27] LABS: TROPONIN I 0.03 ng/mL
[2018-04-23 10:24] LABS: CK-MB 3.9 ng/mL (0.0-3.6)
[2018-04-23] MEDS: Metoprolol Succinate 100 mg XL Tab PO SCH (10:43)
--- NOTE | 2018-04-23 20:15 | CON ---
DATE: 04/23/2018 INDICATIONS Dizziness, Afib, low blood pressure. HISTORY OF PRESENT ILLNESS: This is a 58-year-old man known to me admitted when he complained of dizziness, fatigue and not feeling well yesterday. The night before he had had a [place] food with MSG which he is intolerant of. He went to Dr. Rivera is office for blood work and was found to have a low blood pressure. He was sent to the emergency room, found to be in AFib which is paroxysmal. He was given p.o. Cardizem. His symptoms improved. This morning he feels very well and states "I feel great". There was no chest pain, shortness of breath, orthopnea, PND, syncope, vertigo, palpitation, edema, claudication, fever, chills, cough, sputum production, hemoptysis, abdominal pain, nausea, vomiting, diarrhea, constipation or melena. PAST MEDICAL HISTORY: His past medical history is complex. He underwent a cardiac catheterization many years ago which revealed normal coronary arteries. He has paroxysmal atrial fibrillation, hypertension and DVT. He is on warfarin chronically. He has a history of GERD, depression and chronic pain. He has had multiple orthopedic procedures. He has had joint replacements. He had a nerve stimulator implanted and then removed. He ambulates with a cane. Medications at the time of admission include Bentyl, warfarin Ditropan, Singulair, losartan, metoprolol, ProAir, Lumigan, Hygroton, Lidoderm patch, Protonix, Flomax, Nucynta. ALLERGIES: HE NOTES AN ALLERGY TO TOBRAMYCIN. SOCIAL HISTORY: He lives at home with his . He does not smoke. He does not drink alcohol. FAMILY HISTORY: Noncontributory. REVIEW OF SYSTEMS: A 10-point review of systems otherwise unremarkable except as noted above. PHYSICAL EXAMINATION: GENERAL: On my physical examination, he is a well-developed male sitting on bed in telemetry, in no acute distress. VITAL SIGNS: He is currently in atrial fibrillation at about 80-100 beats per minute. He is afebrile. Blood pressure 121/87, respirations 97 to 98% on room air. HEENT: Exam reveals no neck vein distention, thyromegaly, carotid bruit. Mucous membranes moist. Conjunctivae pink. NECK: Supple. LUNGS: Lung michelle clear throughout. HEART: Examination of heart revealed normal first and second heart sounds. No murmur, gallop, rub or click. ABDOMEN: Soft. Bowel sounds present. No mass, organomegaly, tenderness, rebound or guarding or CVA tenderness. No palpable abdominal aortic aneurysm. EXTREMITIES: Extremity exam revealed no cyanosis, clubbing or edema. NEUROLOGIC: Neurologically, he is awake, alert and oriented. SKIN: Warm and dry. No rash or cellulitis. PSYCHIATRIC: Normal mood and affect. LABORATORY AND IMAGING: Chest x-ray reveals no active disease. EKG demonstrates atrial fibrillation with rapid ventricular response, right bundle-branch block, ST-T wave changes. CBC is unremarkable. PT 22.3, INR 1.91, PTT 37.5. Electrolytes notable for potassium of 3.3, magnesium 1.7, BUN, creatinine normal. LFTs unremarkable. CK is elevated at 429, 365 and 353. Troponins 0.05, 0.05, 0.04. BNP 537. IMPRESSION: Terrell Mendoza is a 58-year-old man with diffuse symptoms including dizziness and low blood pressure following a meal which included monosodium glutamate. He is found to have atrial fibrillation with a rapid ventricular response in the 130 range. He was admitted to telemetry. Today he feels much better without chest pain, shortness of breath or palpitation. His blood pressure is normal. He is still in atrial fibrillation with a controlled rate. PLAN: He is getting Cardizem, warfarin, losartan, Ditropan, Flomax, Hygroton, potassium replacement, Lidoderm patch and metoprolol. He is getting Protonix. An echocardiogram is ordered. I will order a TSH level. He can be out of bed. I will review his old records. I will follow along with you, make additional recommendations based on his clinical course. Dimitrios Leija MD MTDYesenia
[2018-04-23] MEDS: Latanoprost 2.5 ml Opht Soln OU SCH (21:38)
--- NOTE | 2018-04-24 07:59 | CP.PCM.PN ---
Subjective - Date & Time of Evaluation Date of Evaluation: 04/24/18 Time of Evaluation: 07:00 - Subjective Subjective: Stable on 3R. he feels OK. AF with RVR while in BR this AM-150 BM. No CP, SOB, Palpitations. V/noted. AF PE: Lungs: clear Cor.: irreg., S1S2 Abd.: soft Ext.: no edema Neuro.: alert I/O= 1160/550 Labs 04/23 noted: INR = 1.96, K+= 3.6, TSH NL, Elevated CKs with NL trops noted. Objective - Vital Signs/Intake and Output Vital Signs (last 24 hours): Temp Pulse Resp BP Pulse Ox 97.5 F L 85 19 101/62 98 04/24/18 06:00 04/24/18 06:00 04/24/18 06:00 04/24/18 06:00 04/24/18 06:00 Intake and Output: 04/24/18 04/24/18 06:59 18:59 Intake Total 440 Output Total 550 Balance -110 - Medications Medications: Current Medications Albuterol/Ipratropium (Duoneb 3 Mg/0.5 Mg (3 Ml) Ud) 3 ml IH [id number] PRN PRN Reason: Shortness of Breath Chlorthalidone (Hygroton) 25 mg PO DAILY [facility] Last Admin: 04/23/18 09:15 Dose: 25 mg Dicyclomine HCl (Bentyl) 20 mg PO BID [facility] Last Admin: 04/23/18 16:59 Dose: 20 mg Diltiazem HCl (Cardizem) 5 mg IVP Q4 PRN PRN Reason: Heart Rate > 150 Last Admin: 04/23/18 09:35 Dose: 5 mg Diltiazem HCl (Cardizem) 60 mg PO QID [facility] Hydromorphone HCl (Dilaudid) 2 mg PO Q6 PRN PRN Reason: Pain, severe (8-10) Last Admin: 04/24/18 05:49 Dose: 2 mg Latanoprost (Xalatan Opht) 0 ml OU HS [facility] Last Admin: 04/23/18 21:38 Dose: 2.5 ml Lidocaine (Lidoderm) 1 ea TD Q12 [facility] Last Admin: 04/23/18 23:47 Dose: 1 ea Losartan Potassium (Cozaar) 50 mg PO QPM [facility] Last Admin: 04/23/18 17:02 Dose: 50 mg Metoprolol Succinate (Toprol Xl) 100 mg PO DAILY [facility] Last Admin: 04/23/18 10:43 Dose: 100 mg Metoprolol Tartrate (Lopressor) 5 mg IVP Q4 PRN PRN Reason: Heart Rate > 130 Last Admin: 04/23/18 10:43 Dose: 5 mg Montelukast Sodium (Singulair) 10 mg PO QPM [facility] Last Admin: 04/23/18 17:02 Dose: 10 mg Oxybutynin Chloride (Ditropan Tab) 10 mg PO QAM [facility] Last Admin: 04/23/18 09:03 Dose: 10 mg Oxycodone/Acetaminophen (Percocet 5/325 Mg Tab) 1 tab PO Q6H PRN PRN Reason: Pain, moderate (4-7) Stop: 04/25/18 18:42 Last Admin: 04/23/18 08:32 Dose: 1 tab Pantoprazole Sodium (Protonix Ec Tab) 40 mg PO DAILY [facility] Last Admin: 04/23/18 09:02 Dose: 40 mg Potassium Chloride (K-Dur 20 Meq Er Tab) 20 meq PO BID [facility] Last Admin: 04/23/18 17:16 Dose: 20 meq Tamsulosin HCl (Flomax) 0.4 mg PO HS [facility] Last Admin: 04/23/18 21:36 Dose: 0.4 mg Warfarin Sodium (Coumadin) 5 mg PO 1800 [facility]; Protocol Last Admin: 04/23/18 17:00 Dose: 5 mg Warfarin Sodium (Coumadin) 2 mg PO 1800 [facility] Last Admin: 04/23/18 17:01 Dose: 2 mg - Labs Labs: 04/23/18 08:45 04/23/18 08:45 PT 22.8 SECONDS (9.4-12.5) H 04/23/18 08:45 INR 1.96 04/23/18 08:45 APTT 37.5 Seconds (25.1-36.5) H 04/22/18 11:40 Assessment and Plan - Assessment and Plan (Free Text) Assessment: Dizzy, Fatigue, Hypotension, AF with RVR H/O NL cors on cath PAF HBP DVT Chronic Pain GERD Depression Plan: Increase cardizem to 60 QID. Continue metoprolol 100/day OOB as ирина
--- NOTE | 2018-04-24 08:18 | CARD ---
APPROVED REPORT Date of service: 04/23/2018 EXAM: Two-dimensional and M-mode echocardiogram with Doppler and color Doppler. Other Information Quality : PoorRhythm : INDICATION DIZZY, PAF 2D DIMENSIONS IVSd1.3 (0.7-1.1cm)LVDd4.4 (3.9-5.9cm) PWd1.3 (0.7-1.1cm)LVDs3.2 (2.5-4.0cm) FS (%) 26.9 %LVEF (%)52.0 (>50%) M-Mode DIMENSIONS Left Atrium (MM)3.50 (2.5-4.0cm)Aortic Root3.40 (2.2-3.7cm) Aortic Cusp Exc.2.30 (1.5-2.0cm) Aortic Valve AoV Peak Eddjeczh644.0cm/s Mitral Valve MV E Cuwncvns74.0cm/sE/A ratio0.0 TDI Lateral E' Peak V8.27cm/sMedial E' Peak V10.50cm/sE/Lateral E'5.0 E/Medial E'3.9 Tricuspid Valve TR Peak Ychxtlkw959au/sRAP [id number] Peak Gr.15mmHg [id number] LEFT VENTRICLE The left ventricle is normal size. There is mild concentric left ventricular hypertrophy. The LV systolic function appears normal on limited views. Wall motion is normal for segments adequately visualized. RIGHT VENTRICLE The right ventricle is not well visualized. The right ventricle is probably normal size. ATRIA The left atrium size is normal. The right atrium is not well visualized. AORTIC VALVE The aortic valve is not well visualized. MITRAL VALVE The mitral valve is normal in structure. TRICUSPID VALVE The tricuspid valve is not well visualized. There is trace tricuspid regurgitation. PULMONIC VALVE The pulmonic valve is not well visualized. GREAT VESSELS The aortic root is normal in size. PERICARDIAL EFFUSION There is no pericardial effusion. <Conclusion> This is a very limited study. The left ventricle is normal size. There is mild concentric left ventricular hypertrophy. The LV systolic function appears normal on limited views. Wall motion is normal for segments adequately visualized.
[2018-04-24] MEDS: Metoprolol Succinate 100 mg XL Tab PO SCH (10:05)
[2018-04-24] MEDS: Pantoprazole 40 mg EC Tab PO SCH (10:05)
[2018-04-24] MEDS: Potassium Chloride 20 mEq ER Tab PO SCH ×2 (10:07→17:20)
[2018-04-24] MEDS: Lidocaine 5% Patch TD SCH ×2 (10:17→21:47)
--- NOTE | 2018-04-24 13:35 | PN ---
DATE: 04/24/2018 SUBJECTIVE: The patient has no complaints of chest pain. No shortness of breath. He states he feels well. PHYSICAL EXAMINATION: VITAL SIGNS: His heart rate has been elevated between 130 to 150, temperature is 97.5, pulse is 130, blood pressure is 101/62, respirations 19. GENERAL: The patient is lying in bed, flat, comfortable. HEENT: No oral lesion. Anicteric sclerae. Moist mucosa. NECK: No JVD, adenopathy, or thyromegaly. CARDIOVASCULAR: S1 and S2, regular. No murmurs, rubs, or gallops. LUNGS: Clear to auscultation bilaterally. No wheeze, rales, or rhonchi. ABDOMEN: Bowel sounds are positive, soft, nontender and nondistended. EXTREMITIES: No cyanosis, clubbing or edema. LABORATORY DATA: Creatinine 0.9. His echo is a limited study. Left ventricle is normal size. No evidence of concentric LVH. ASSESSMENT: 1. Atrial fibrillation with rapid rate. 2. Chronic back pain secondary to degenerative joint disease. 3. Obstructive sleep apnea. 4. Hypertension. 5. Obesity with a BMI of 37. PLAN: The patient is currently on Cardizem, this will be continued. He is on Coumadin for anticoagulation. He is on 5 mg in the evening. He is on Dilaudid for pain. He is receiving nebulizer treatments as needed. He is on Flomax for BPH. He is on potassium replacement. The patient is on Lopressor and Singulair. His INR was 1.96 yesterday. Troponins have been negative. Raciel Rivera MD
[2018-04-24 17:09] VITALS: RESP 20
[2018-04-24] MEDS: Latanoprost 2.5 ml Opht Soln OU SCH (21:48)
[2018-04-25 01:03] VITALS: TEMP 97.8; O2SAT 100
[2018-04-25 08:11] LABS: INR 2.53; PROTHROMBIN TIME 29.7 SECONDS (9.4-12.5)
[2018-04-25 08:15] LABS: BLOOD UREA NITROGEN 21 mg/dL (7-21); CALCIUM 8.5 mg/dL (8.4-10.5); GFR NON-AFRICAN AMERICAN > 60
[2018-04-25] MEDS: Metoprolol Succinate 100 mg XL Tab PO SCH (09:38)
[2018-04-25] MEDS: Lidocaine 5% Patch TD SCH (09:38)
[2018-04-25] MEDS: Pantoprazole 40 mg EC Tab PO SCH (09:38)
[2018-04-25] MEDS: Potassium Chloride 20 mEq ER Tab PO SCH (09:39)
[2018-04-25 09:46] VITALS: BP 128/60
[2018-04-25] MEDS ORDERED: diltiaZEM 240 mg/24 Hours CD Cap PO SCH (10:00)
--- NOTE | 2018-04-25 10:04 | CP.PCM.DIS ---
<Edilberto Pal - Last Filed: 04/25/18 15:01> Provider - Provider Date of Admission: 04/23/18 10:28 Attending physician: Raciel iRvera MD Primary care physician: Raciel Rivrea MD Time Spent in preparation of Discharge (in minutes): 35 Diagnosis - Discharge Diagnosis (1) A-fib Status: Chronic Hospital Course - Lab Results Lab Results: Most Recent Lab Values WBC 7.8 10^3/uL (4.5-11.0) 04/23/18 08:45 RBC 4.93 10^6/uL (3.5-6.1) 04/23/18 08:45 Hgb 14.7 g/dL (14.0-18.0) 04/23/18 08:45 Hct 43.3 % (42.0-52.0) 04/23/18 08:45 MCV 87.8 fl (80.0-105.0) 04/23/18 08:45 MCH 29.8 pg (25.0-35.0) 04/23/18 08:45 MCHC 33.9 g/dl (31.0-37.0) 04/23/18 08:45 RDW 15.1 % (11.5-14.5) H 04/23/18 08:45 Plt Count 144 10^3/uL (120.0-450.0) 04/23/18 08:45 MPV 9.1 fl (7.0-11.0) 04/23/18 08:45 Gran % 72.3 % (50.0-68.0) H 04/22/18 11:40 Lymph % (Auto) 20.8 % (22.0-35.0) L 04/22/18 11:40 [place] % (Auto) 5.8 % (1.0-6.0) 04/22/18 11:40 Eos % (Auto) 0.9 % (1.5-5.0) L 04/22/18 11:40 Baso % (Auto) 0.2 % (0.0-3.0) 04/22/18 11:40 Gran # 6.80 (1.4-6.5) H 04/22/18 11:40 Lymph # (Auto) 2.0 (1.2-3.4) 04/22/18 11:40 [place] # (Auto) 0.5 (0.1-0.6) 04/22/18 11:40 Eos # (Auto) 0.1 (0.0-0.7) 04/22/18 11:40 Baso # (Auto) 0.02 K/mm3 (0.0-2.0) 04/22/18 11:40 PT 29.7 SECONDS (9.4-12.5) H 04/25/18 07:50 INR 2.53 04/25/18 07:50 APTT 37.5 Seconds (25.1-36.5) H 04/22/18 11:40 Sodium 142 mmol/L (132-148) 04/25/18 07:50 Potassium 3.6 mmol/L (3.6-5.0) 04/25/18 07:50 Chloride 106 mmol/L (98-107) 04/25/18 07:50 Carbon Dioxide 28 mmol/L (21-33) 04/25/18 07:50 Anion Gap 11 (10-20) 04/25/18 07:50 BUN 21 mg/dL (7-21) 04/25/18 07:50 Creatinine 1.0 mg/dl (0.8-1.5) 04/25/18 07:50 Est GFR ( Amer) > 60 04/25/18 07:50 Est GFR (Non-Af Amer) > 60 04/25/18 07:50 Random Glucose 112 mg/dL (70-110) H 04/25/18 07:50 Hemoglobin A1c 5.6 % (4.2-6.5) 04/22/18 19:39 Calcium 8.5 mg/dL (8.4-10.5) 04/25/18 07:50 Phosphorus 3.0 mg/dL (2.5-4.5) 04/23/18 08:45 Magnesium 1.8 mg/dL (1.7-2.2) 04/23/18 08:45 Total Bilirubin 0.6 mg/dL (0.2-1.3) 04/23/18 08:45 AST 34 U/L (17-59) 04/23/18 08:45 ALT 32 U/L (7-56) 04/23/18 08:45 Alkaline Phosphatase 121 U/L (38-126) 04/23/18 08:45 Lactate Dehydrogenase 772 U/L (333-699) H 04/23/18 08:45 Total Creatine Kinase 404 U/L (35-230) H 04/23/18 08:45 CK-MB (CK-2) 3.9 ng/mL (0.0-3.6) H 04/23/18 08:45 CK-MB (CK-2) % Cancelled 04/22/18 11:40 Troponin I 0.03 ng/mL D 04/23/18 08:45 NT-Pro-B Natriuret Pep 537 pg/mL (0-450) H 04/22/18 11:40 Total Protein 7.4 g/dL (5.8-8.3) 04/23/18 08:45 Albumin 3.8 g/dL (3.0-4.8) 04/23/18 08:45 Globulin 3.6 gm/dL 04/23/18 08:45 Albumin/Globulin Ratio 1.1 (1.1-1.8) 04/23/18 08:45 TSH 3rd Generation 4.04 mIU/mL (0.46-4.68) 04/23/18 13:20 - Hospital Course Hospital Course: 58-year-old male with a PMH of paroxysmal A. fib (rate controlled, on Coumadin), DVT/PE, extensive history of spine injuries post multiple spine surgeries with associated chronic pain, chronic knee pain, HTN, TRACEE, COPD, GERD and obesity who was admitted for A. fib with RVR. Patient improved on Cardizem, which was a new drug for him. Cardiology was consulted. Echocardiogram was done, and was limite d, but did show normal LV systolic function and size. Patient improved on Cardizem, and he will be discharged with dose of 240 mg daily, and is to continue his Coumadin. Patient's chronic pain was managed by IV and PO drugs, and was well controlled. INR was subtherapeutic on admission, but patient has hx of labile INR as seen in records. Patient is ambulating without any difficulty with cane for assistance, and answers regarding discharge were answered. He will follow-up with Dr. Leija and Dr. Rivera on discharge. Discharge Exam - Head Exam Head Exam: ATRAUMATIC, NORMAL INSPECTION, NORMOCEPHALIC - Eye Exam Eye Exam: EOMI, Normal appearance, PERRL Additional comments: wears glasses - ENT Exam ENT Exam: Mucous Membranes Moist - Neck Exam Neck exam: Full Rom, Normal Inspection - Respiratory Exam Respiratory Exam: NORMAL BREATHING PATTERN. absent: Rales, Rhonchi, Wheezes, Respiratory Distress - Cardiovascular Exam Cardiovascular Exam: Irregular Rhythm, +S1, +S2. absent: Systolic Murmur - GI/Abdominal Exam GI & Abdominal Exam: Normal Bowel Sounds, Soft. absent: Distended, Tenderness - Extremities Exam Extremities exam: full ROM, pedal edema (1+) Additional comments: chronic poor venous circulation changes LLE - Back Exam Back exam: NORMAL INSPECTION - Neurological Exam Neurological exam: Alert, CN II-XII Intact, Normal Gait, Oriented x3 - Psychiatric Exam Psychiatric exam: Normal Affect, Normal Mood - Skin Skin Exam: Normal Color, Warm Discharge Plan - Discharge Medications Prescriptions: RX: diltiaZEM CD [Cardizem CD] 240 mg PO DAILY #30 cap - Follow Up Plan Condition: FAIR Disposition: HOME/ ROUTINE Instructions: Atrial Fibrillation (DC), Diltiazem, Anti-Clotting Medicines: Warfarin (Coumadin), Warfarin Additional Instructions: - please continue Cardizem 240mg daily - please continue Coumadin 7mg daily - please continue your other home medications - please follow-up with Dr. Leija within 2 weeks - please follow-up with Dr. Rivera within 2 weeks - if you experience any shortness of breath, lethargy, or palpitations, please return to ER for evaluation Referrals: Raciel Rivera MD [Primary Care Provider] - Dimitrios Leija MD [Staff Provider] - <Raciel Rivera - Last Filed: 04/25/18 19:59> Provider - Provider Date of Admission: 04/22/18 13:34 Attending physician: Raciel Rivera MD Primary care physician: Raciel Rivera MD Hospital Course - Lab Results Lab Results: Most Recent Lab Values WBC 7.8 10^3/uL (4.5-11.0) 04/23/18 08:45 RBC 4.93 10^6/uL (3.5-6.1) 04/23/18 08:45 Hgb 14.7 g/dL (14.0-18.0) 04/23/18 08:45 Hct 43.3 % (42.0-52.0) 04/23/18 08:45 MCV 87.8 fl (80.0-105.0) 04/23/18 08:45 MCH 29.8 pg (25.0-35.0) 04/23/18 08:45 MCHC 33.9 g/dl (31.0-37.0) 04/23/18 08:45 RDW 15.1 % (11.5-14.5) H 04/23/18 08:45 Plt Count 144 10^3/uL (120.0-450.0) 04/23/18 08:45 MPV 9.1 fl (7.0-11.0) 04/23/18 08:45 Gran % 72.3 % (50.0-68.0) H 04/22/18 11:40 Lymph % (Auto) 20.8 % (22.0-35.0) L 04/22/18 11:40 [place] % (Auto) 5.8 % (1.0-6.0) 04/22/18 11:40 Eos % (Auto) 0.9 % (1.5-5.0) L 04/22/18 11:40 Baso % (Auto) 0.2 % (0.0-3.0) 04/22/18 11:40 Gran # 6.80 (1.4-6.5) H 04/22/18 11:40 Lymph # (Auto) 2.0 (1.2-3.4) 04/22/18 11:40 [place] # (Auto) 0.5 (0.1-0.6) 04/22/18 11:40 Eos # (Auto) 0.1 (0.0-0.7) 04/22/18 11:40 Baso # (Auto) 0.02 K/mm3 (0.0-2.0) 04/22/18 11:40 PT 29.7 SECONDS (9.4-12.5) H 04/25/18 07:50 INR 2.53 04/25/18 07:50 APTT 37.5 Seconds (25.1-36.5) H 04/22/18 11:40 Sodium 142 mmol/L (132-148) 04/25/18 07:50 Potassium 3.6 mmol/L (3.6-5.0) 04/25/18 07:50 Chloride 106 mmol/L (98-107) 04/25/18 07:50 Carbon Dioxide 28 mmol/L (21-33) 04/25/18 07:50 Anion Gap 11 (10-20) 04/25/18 07:50 BUN 21 mg/dL (7-21) 04/25/18 07:50 Creatinine 1.0 mg/dl (0.8-1.5) 04/25/18 07:50 Est GFR ( Amer) > 60 04/25/18 07:50 Est GFR (Non-Af Amer) > 60 04/25/18 07:50 Random Glucose 112 mg/dL (70-110) H 04/25/18 07:50 Hemoglobin A1c 5.6 % (4.2-6.5) 04/22/18 19:39 Calcium 8.5 mg/dL (8.4-10.5) 04/25/18 07:50 Phosphorus 3.0 mg/dL (2.5-4.5) 04/23/18 08:45 Magnesium 1.8 mg/dL (1.7-2.2) 04/23/18 08:45 Total Bilirubin 0.6 mg/dL (0.2-1.3) 04/23/18 08:45 AST 34 U/L (17-59) 04/23/18 08:45 ALT 32 U/L (7-56) 04/23/18 08:45 Alkaline Phosphatase 121 U/L (38-126) 04/23/18 08:45 Lactate Dehydrogenase 772 U/L (333-699) H 04/23/18 08:45 Total Creatine Kinase 404 U/L (35-230) H 04/23/18 08:45 CK-MB (CK-2) 3.9 ng/mL (0.0-3.6) H 04/23/18 08:45 CK-MB (CK-2) % Cancelled 04/22/18 11:40 Troponin I 0.03 ng/mL D 04/23/18 08:45 NT-Pro-B Natriuret Pep 537 pg/mL (0-450) H 04/22/18 11:40 Total Protein 7.4 g/dL (5.8-8.3) 04/23/18 08:45 Albumin 3.8 g/dL (3.0-4.8) 04/23/18 08:45 Globulin 3.6 gm/dL 04/23/18 08:45 Albumin/Globulin Ratio 1.1 (1.1-1.8) 04/23/18 08:45 TSH 3rd Generation 4.04 mIU/mL (0.46-4.68) 04/23/18 13:20 - Hospital Course Hospital Course: Pt seen and examined. I have reviewed the note of the medical record librarians teacher and agree with it. I have discussed the assessment and plan with the resident. I have reviewed the patient's labs and medications. Pt with Afib that is better controlled. He was started on Cardizem. Rate is controlled. Coumadin for A fib.
[2018-04-25 11:35] VITALS: PULSE 124
== END 2018-04-25 11:39 | disposition home or self-care (01) | DRG 310 ==
LOC: ED 11:09 → ERH 13:02 → OBSVTOIN 13:34 → ERH 14:47 → 3RSO 15:53 → INTOOBSV 04-23 10:28 → OBSVTOIN 04-23 10:28 → 3RSO 04-23 13:31
PROVIDERS: ADMIT Internal Medicine Nephrology; ATTEND Internal Medicine Nephrology
PROC: 5A09357 Assistance with Respiratory Ventilation, Less than 24 Consecutive Hours, Continuous Positive Airway Pressure (ICD-10-PCS; principal; 2018-04-22)
DX: I48.0 Paroxysmal atrial fibrillation (principal); I45.10 Unspecified right bundle-branch block; I10 Essential (primary) hypertension; G47.33 Obstructive sleep apnea (adult) (pediatric); J44.9 Chronic obstructive pulmonary disease, unspecified; K21.9 Gastro-esophageal reflux disease without esophagitis; F32.9 Major depressive disorder, single episode, unspecified; G89.29 Other chronic pain; E78.00 Pure hypercholesterolemia, unspecified; N40.0 Benign prostatic hyperplasia without lower urinary tract symptoms; M47.9 Spondylosis, unspecified; E66.9 Obesity, unspecified; Z68.37 Body mass index [BMI] 37.0-37.9, adult; Z79.01 Long term (current) use of anticoagulants; Z86.711 Personal history of pulmonary embolism; Z86.718 Personal history of other venous thrombosis and embolism

== ENCOUNTER 2018-06-21 09:56 | Outpatient (CLI) | payer BC, MEDICARE | END 2018-06-21 09:57 | disposition home or self-care (01) | LOC: LAB 09:56 ==

== ENCOUNTER 2018-06-30 10:14 | Outpatient (CLI) | payer BC, MEDICARE | END 2018-06-30 10:15 | disposition home or self-care (01) | LOC: LAB 10:14 ==

== ENCOUNTER 2018-07-01 08:52 | Outpatient (CLI) | payer BC, MEDICARE | END 2018-07-01 08:53 | disposition home or self-care (01) | LOC: LAB 08:52 ==

== ENCOUNTER 2018-07-13 07:56 | Outpatient (CLI) | payer BC, MEDICARE | END 2018-07-13 07:57 | disposition home or self-care (01) | LOC: RAD 07:56 | DX: M25.562 Pain in left knee (principal); Z96.652 Presence of left artificial knee joint ==

== ENCOUNTER 2018-07-21 08:22 | Outpatient (CLI) | payer BC, MEDICARE | END 2018-07-21 08:23 | disposition home or self-care (01) | LOC: RAD 08:22 ==

== ENCOUNTER 2018-07-25 08:22 | Outpatient (CLI) | payer BC, MEDICARE | END 2018-07-25 08:23 | disposition home or self-care (01) | LOC: RAD 08:22 ==

== ENCOUNTER 2018-08-01 08:44 | Outpatient (CLI) | payer BC, MEDICARE | END 2018-08-01 08:45 | disposition home or self-care (01) | LOC: LAB 08:44 ==

== ENCOUNTER 2018-08-30 09:54 | Outpatient (CLI) | payer BC, MEDICARE | END 2018-08-30 09:55 | disposition home or self-care (01) | LOC: LAB 09:54 ==

== ENCOUNTER 2018-09-01 11:25 | Outpatient (CLI) | payer BC, MEDICARE | END 2018-09-01 11:26 | disposition home or self-care (01) | LOC: LAB 11:25 ==

== ENCOUNTER 2018-09-13 10:04 | Outpatient (CLI) | payer BC, MEDICARE | END 2018-09-13 10:05 | disposition home or self-care (01) | LOC: LAB 10:04 ==

== ENCOUNTER 2018-09-13 10:14 | Observation (INO) | payer BC, MEDICARE ==
[2018-09-13 10:15] VITALS: PULSE 61
[2018-09-13 11:46] LABS: BASO # 0.02 K/mm3 (0.0-2.0); BASO % 0.3 % (0.0-3.0); EOS # 0.1 (0.0-0.7); HEMOGLOBIN 13.5 g/dL (14.0-18.0); LYMPH # 1.5 (1.2-3.4); LYMPH % 22.4 % (22.0-35.0); MEAN CELL VOLUME 88.1 fl (80.0-105.0); MEAN CORPUSCULAR HEMOGLOBIN 28.8 pg (25.0-35.0); MEAN CORPUSCULAR HGB CONC 32.7 g/dl (31.0-37.0); MEAN PLATELET VOLUME 8.9 fl (7.0-11.0); MONO # 0.5 (0.1-0.6); RBC 4.69 10^6/uL (3.5-6.1); RED CELL DISTRIBUTION WIDTH 15.4 % (11.5-14.5); WHITE BLOOD COUNT 6.5 10^3/uL (4.5-11.0)
[2018-09-13 11:55] LABS: INR 2.31; PARTIAL THROMBOPLASTIN TIME 41.4 Seconds (26.9-38.3); PROTHROMBIN TIME 26.1 SECONDS (9.4-12.5)
[2018-09-13 12:02] LABS: ALBUMIN 3.7 g/dL (3.0-4.8); ALT/SGPT 47 U/L (7-56); AST/SGOT 48 U/L (17-59); BLOOD UREA NITROGEN 20 mg/dL (7-21); CALCIUM 8.6 mg/dL (8.4-10.5); GFR NON-AFRICAN AMERICAN > 60
[2018-09-13 12:09] LABS: TROPONIN I < 0.01 ng/mL
[2018-09-13 12:14] LABS: CK-MB 2.5 ng/mL (0.0-3.6)
--- NOTE | 2018-09-13 12:22 | ED PDOC ---
Arrival/HPI - General Chief Complaint: Weakness/Neurological Deficit Time Seen by Provider: 09/13/18 10:56 Historian: Patient - History of Present Illness Narrative History of Present Illness (Text): 09/13/18 12:19 58-year-old male with a history of hypertension and atrial fibrillation presents today with right-sided facial numbness/paresthesias and right arm numbness. Patient states he has been having intermittent symptoms for the past 2 weeks but yesterday the numbness was constant and severe lasting throughout the day. Patient presents today with a slight improvement in the paresthesia. Patient denies headache states he has been having occasional dizziness. He denies chest pain or shortness of breath. Patient denies abdominal pain. No back pain. No fevers or chills. No trauma or injury. No other complaints Past Medical History - Provider Review Nursing Documentation Reviewed: Yes - Travel History Have you recently traveled outside [place] w/in the past 3 mons?: No - Past History Past History: No Previous - Infectious Disease Hx of Infectious Diseases: None - Tetanus Immunization Tetanus Immunization: Unknown - Cardiac Hx Cardiac Disorders: Yes Hx Cardiac Arrhythmia: Yes (AFIB) Hx Hypertension: Yes Hx Pacemaker: No - Pulmonary Hx Respiratory Disorders: Yes Hx Asthma: Yes Hx Chronic Obstructive Pulmonary Disease (COPD): Yes Hx Pulmonary Embolism: Yes - Neurological Hx Neurological Disorder: Yes Hx Dizziness: Yes - HEENT Hx HEENT Disorder: No - Renal Hx Renal Disorder: No - Endocrine/Metabolic Hx Endocrine Disorders: No - Hematological/Oncological Hx Blood Disorders: Yes Other/Comment: hx of DVT - Integumentary Hx Dermatological Disorder: Yes Other/Comment: SACR TO BACK,LEFT KNEE - Musculoskeletal/Rheumatological Hx Musculoskeletal Disorders: Yes Hx Back Pain: Yes Hx Degenerative Joint Disease: Yes Hx Falls: Yes Hx Herniated Disk: Yes Hx Spinal Stenosis: Yes Hx Unsteady Gait: Yes (CANE) - Gastrointestinal Hx Gastrointestinal Disorders: Yes Hx Gastroesophageal Reflux: Yes - Genitourinary/Gynecological Hx Genitourinary Disorders: Yes Hx Prostate Problems: Yes (BPH) - Psychiatric Hx Psychophysiologic Disorder: Yes Hx Anxiety: Yes Hx Depression: Yes Hx Emotional Abuse: No Hx Physical Abuse: No Hx Substance Use: No - Surgical History Hx Cardiac Catheterization: Yes Hx Orthopedic Surgery: Yes Other/Comment: R hip r/p. L knee r/p X2 - Anesthesia Hx Anesthesia Reactions: No (DIFFICULT INTUBATION R/T NECK PROBLEMS) - Suicidal Assessment Feels Threatened In Home Enviroment: No Family/Social History - Physician Review Nursing Documentation Reviewed: Yes Family/Social History: Unknown Family HX Smoking Status: Never Smoked Hx Alcohol Use: No Hx Substance Use: No Hx Substance Use Treatment: No Allergies/Home Meds Allergies/Adverse Reactions: Allergies strawberry Allergy (Intermediate, Verified 01/21/18 11:07) RASH tobramycin Allergy (Intermediate, Verified 01/21/18 11:07) VERTIGO/RASH Home Medications: Home Meds Medication Instructions Recorded Confirmed Dicyclomine [Bentyl] 20 mg PO BID 10/16/15 09/13/18 Oxybutynin [Ditropan Tab] 10 mg PO QAM 10/31/16 09/13/18 Montelukast [Singulair] 10 mg PO QPM 01/13/17 09/13/18 Albuterol Sulfate [Proair 117 mcg INH PRN PRN 04/22/18 09/13/18 Respiclick] Chlorthalidone [Hygroton] 25 mg PO DAILY 04/22/18 09/13/18 Lidocaine [Lidocaine Pain Relief] 5 % TOP Q12 04/22/18 09/13/18 Pantoprazole Sodium [Protonix] 40 mg PO DAILY 04/22/18 09/13/18 Tamsulosin HCl [Flomax] 0.4 mg PO HS 04/22/18 09/13/18 Tapentadol HCl [Nucynta ER] 50 mg PO Q12 04/22/18 09/13/18 Bisoprolol [Zebeta] 10 mg PO DAILY 09/13/18 09/13/18 Review of Systems - Review of Systems Constitutional: absent: Fatigue, Fevers Eyes: absent: Vision Changes, Photophobia, Eye Pain Respiratory: absent: SOB, Cough Cardiovascular: absent: Chest Pain, Palpitations Gastrointestinal: absent: Abdominal Pain, Nausea, Vomiting Genitourinary Male: absent: Dysuria, Frequency Musculoskeletal: Arthralgias (chronic left leg pain). absent: Back Pain, Neck Pain Skin: absent: Rash, Pruritis Neurological: Dizziness, Other (right sided facial numbness). absent: Headache, Gait Changes, Speech Changes, Disequilibrium Psychiatric: absent: Anxiety, Depression Physical Exam Vital Signs Reviewed: Yes Vital Signs Temp Pulse Resp BP Pulse Ox 09/13/18 10:29 98.3 F 57 L 18 144/69 98 Temperature: Afebrile Blood Pressure: Normal Pulse: Regular Respiratory Rate: Normal Appearance: Positive for: Well-Appearing, Non-Toxic, Comfortable Pain Distress: None Mental Status: Positive for: Alert and Oriented X 3 - Systems Exam Head: Present: Atraumatic. No: Tenderness, Contusion, Swelling, Ecchymosis Pupils: Present: PERRL Extroacular Muscles: Present: EOMI Conjunctiva: Present: Normal Ears: Present: Normal Mouth: Present: Moist Mucous Membranes Pharnyx: Present: Normal Nose (External): Present: Atraumatic Nose (Internal): Present: Normal Inspection Neck: Present: Normal Range of Motion, Trachea Midline. No: MIDLINE TENDERNESS, Paraspinal Tenderness Respiratory/Chest: Present: Clear to Auscultation, Good Air Exchange. No: Respiratory Distress, Accessory Muscle Use Cardiovascular: Present: Regular Rate and Rhythm, Normal S1, S2. No: Murmurs Abdomen: No: Tenderness, Distention, Peritoneal Signs, Rebound, Guarding Back: Present: Normal Inspection Upper Extremity: Present: Normal ROM Lower Extremity: Present: Normal ROM Neurological: Present: GCS=15, Speech Normal, Motor Func Grossly Intact. No: Normal Sensory Function (decreased sensation to right cheek.) Skin: Present: Warm, Dry, Normal Color. No: Rashes Psychiatric: Present: Alert, Oriented x 3 Medical Decision Making ED Course and Treatment: 09/13/18 12:23 58yr old male with parasthesias to right cheek. CBCwnl CMP wnl INR; 2.31 cxr; wnl EKG: Sinus bradycardia at 50 bpm right bundle branch block no ST elevations QTC 439 ct head; FINDINGS: HEMORRHAGE: No intracranial hemorrhage. BRAIN: No mass effect or edema. Minimal patchy periventricular white matter lucency consistent with chronic microvascular ischemic change. No evidence of acute infarct. VENTRICLES: Unremarkable. No hydrocephalus. CALVARIUM: Unremarkable. PARANASAL SINUSES: Chronic pansinusitis. MASTOID AIR CELLS: Unremarkable as visualized. No inflammatory changes. OTHER FINDINGS: None. IMPRESSION: No intracranial mass, hemorrhage or evidence of acute infarct. Minimal chronic white matter ischemic change. Chronic pansinusitis. UA; wnl 09/13/18 14:28 asa 81mg given Po case discussed with dr. aguilar; accepts remote tele obs admission for numbness, r/o cva. pt with hx of HTN and afib. All aspects of this case were discussed the attending of record. impression; numbness, right sided admit remote tele obs Reassessment Condition: Re-examined, Improved - Lab Interpretations Lab Results: PT 26.1 SECONDS (9.4-12.5) H 09/13/18 11:30 INR 2.31 09/13/18 11:30 APTT 41.4 Seconds (26.9-38.3) H 09/13/18 11:30 Troponin I < 0.01 ng/mL D 09/13/18 11:30 Total Bilirubin 0.3 mg/dL (0.2-1.3) 09/13/18 11:30 AST 48 U/L (17-59) 09/13/18 11:30 ALT 47 U/L (7-56) 09/13/18 11:30 Alkaline Phosphatase 115 U/L (38-126) 09/13/18 11:30 Total Protein 7.4 g/dL (5.8-8.3) 09/13/18 11:30 Albumin 3.7 g/dL (3.0-4.8) 09/13/18 11:30 Globulin 3.7 gm/dL 09/13/18 11:30 Albumin/Globulin Ratio 1.0 (1.1-1.8) L 09/13/18 11:30 - RAD Interpretation Radiology Orders: 09/13/18 11:14 HEAD W/O CONTRAST [CT] Stat CHEST PORTABLE [RAD] Stat NIHSS Scale ([place]) Time Performed: 11:30 - How Severe is the Stoke Baseline Level of Consciousness: 0=Alert LOC to Questions: 0=Both comments correct LOC to commands: 0=Obeys both correctly Best Gaze: 0=Normal Visual: 0=No visual loss Facial: 0=Normal Motor Arm - Left: 0=No drift Motor Arm - Right: 0=No drift Motor Leg - Left: 0=No drift Motor Leg - Right: 0=No drift Limb Ataxia: 0=Absent Sensory: 1=Mild to moderate loss Best Language: 0=No aphasia Dysarthia: 0=Normal articulation Extinction & Inattention (Neglect): 0=Normal, no object Score: 1 Risk Level: Minor Stroke Risk Disposition/Present on Arrival - Present on Arrival Any Indicators Present on Arrival: Yes History of DVT/PE: Yes History of Uncontrolled Diabetes: No Urinary Catheter: No History of Decub. Ulcer: No History Surgical Site Infection Following: None - Disposition Have Diagnosis and Disposition been Completed?: Yes Diagnosis: Numbness Disposition: HOSPITALIZED Disposition Time: 12:26 Patient Plan: Observation, Telemetry (remote) Patient Problems: Current Active Problems Problem Status Onset Numbness Acute Condition: FAIR
--- NOTE | 2018-09-13 12:36 | CT ---
Date of service: 09/13/2018 PROCEDURE: CT HEAD WITHOUT CONTRAST. HISTORY: headache COMPARISON: 12/07/2016 TECHNIQUE: Axial computed tomography images were obtained through the head/brain without intravenous contrast. Radiation dose: Total exam DLP = 965.89 mGy-cm. This CT exam was performed using one or more of the following dose reduction techniques: Automated exposure control, adjustment of the mA and/or kV according to patient size, and/or use of iterative reconstruction technique. FINDINGS: HEMORRHAGE: No intracranial hemorrhage. BRAIN: No mass effect or edema. Minimal patchy periventricular white matter lucency consistent with chronic microvascular ischemic change. No evidence of acute infarct. VENTRICLES: Unremarkable. No hydrocephalus. CALVARIUM: Unremarkable. PARANASAL SINUSES: Chronic pansinusitis. MASTOID AIR CELLS: Unremarkable as visualized. No inflammatory changes. OTHER FINDINGS: None. IMPRESSION: No intracranial mass, hemorrhage or evidence of acute infarct. Minimal chronic white matter ischemic change. Chronic pansinusitis.
--- NOTE | 2018-09-13 12:44 | RAD ---
Date of service: 09/13/2018 HISTORY: numbness COMPARISON: 08/01/2018 TECHNIQUE: 1 view obtained. FINDINGS: LUNGS: No active pulmonary disease. PLEURA: No significant pleural effusion identified, no pneumothorax apparent. CARDIOVASCULAR: No aortic atherosclerotic calcification present. Normal cardiac size. No pulmonary vascular congestion. OSSEOUS STRUCTURES: No significant abnormalities. VISUALIZED UPPER ABDOMEN: Normal. OTHER FINDINGS: None. IMPRESSION: No active disease.
[2018-09-13 13:14] LABS: PH,URINE 6.5 (4.7-8.0); URINE BILIRUBIN NEGATIVE (NEGATIVE); URINE BLOOD NEGATIVE (NEGATIVE); URINE GLUCOSE (UA) NEGATIVE (NEGATIVE); URINE LEUKOCYTE ESTERASE NEGATIVE Leu/uL (NEGATIVE); URINE PROTEIN NEGATIVE mg/dL (<30 mg/dL); URINE UROBILINOGEN 0.2 E.U./dL (<1 E.U./dL)
[2018-09-13 13:15] LABS: URINE APPEARANCE CLEAR (CLEAR); URINE COLOR YELLOW (YELLOW)
[2018-09-13] MEDS ORDERED: diltiaZEM 240 mg/24 Hours CD Cap PO SCH (16:00)
[2018-09-13] MEDS ORDERED: Pantoprazole 40 mg EC Tab PO SCH (16:00)
[2018-09-13 16:56] LABS: HDL CHOLESTEROL 29 mg/dL (29-60)
[2018-09-13 17:06] LABS: LDL CHOLESTEROL 80 mg/dL (0-129)
--- NOTE | 2018-09-13 17:40 | CARD ---
APPROVED REPORT Date of service: 09/13/2018 EKG Measurement Heart [id number] <Conclusion> Poor data quality, interpretation may be adversely affected Sinus bradycardia Right bundle branch block Minimal voltage criteria for LVH, may be normal variant NDSTT abnormalities Abnormal ECG
[2018-09-13] MEDS: Morphine 15 mg SR Tab PO PRN (17:52)
[2018-09-13 22:03] VITALS: BMI 38.0
[2018-09-13] MEDS ORDERED: Influenza Vaccine 60 mcg/0.5 mL SYR (4YR UP) IM ONE (22:03)
[2018-09-13] MEDS ORDERED: Pneumococcal 23-Valent Vaccine IM ONE (22:03)
[2018-09-14] MEDS: Morphine 15 mg SR Tab PO PRN (05:54)
--- NOTE | 2018-09-14 06:00 | CP.PCM.HP ---
<JonasMario Alberto - Last Filed: 09/14/18 09:08> History of Present Illness - History of Present Illness History of Present Illness: Mario Alberto Mcdaniel- Internal Medicine Resident- H&P on Behalf of Dr. Rivera Subjective: CC: Numbness, Weakness HPI: Patient is 58 year old male with a past medical history of paroxysmal A. fib (rate controlled, on Coumadin), DVT/PE, extensive history of spine injuries post multiple spine surgeries with associated chronic pain, chronic knee pain, HTN, TRACEE, COPD, GERD and obesity who was admitted for evaluation and treatment of right-sided facial numbness/paresthesias and right arm numbness which began approximately 2 weeks ago with no specific provoking event. States the numbness is associated with intermittent bouts of weakness. States symptoms resolve without any acute intervention. Denies fever, chills, chest pain, SOB, abdominal pain, nausea, vomiting, diarrhea, constipation, and urinary symptoms. 12 point ROS negative except as indicated in HPI PMHx: paroxysmal A. fib (rate controlled, on Coumadin), DVT/PE, extensive history of spine injuries post multiple spine surgeries with associated chronic pain, chronic knee pain, HTN, TRACEE, COPD, GERD and obesity PSHx: Multiple orthopedic surgeries in C-spine, L-spine and knees Allergies: [place], tobramycin Social History: Uses cane for assistance with ambulation. Denies tobacco, EtOH or drug use Family History: Noncontributory Medications: As per MAR, reviewed Physical Examination: - Constitutional Appears: no acute distress - Head Exam Head Exam: ATRAUMATIC, NORMOCEPHALIC - Eye Exam Eye Exam: PERRL, EOMI - ENT Exam ENT Exam: Mucous Membranes Moist - Respiratory Exam Respiratory Exam: CTA bilaterally - Cardiovascular Exam Cardiovascular Exam: +S1, +S2. absent: Systolic Murmur - GI/Abdominal Exam GI & Abdominal Exam: Normal Bowel Sounds, Soft. absent: Distended, Firm, Guarding, Rebound, Rigid, Tenderness - Neurological Exam Neurological exam: Awake, alert, responds to verbal stimuli, follows commands, moves extremities past midline, muscle strength 5/5 bilateral upper and lower extremities, sensation is intact to touch throughout, CNII-CNXII intact bilaterally - Extremities Exam Extremities Exam: no clubbing, no edema - Skin Skin Exam: Dry, warm, intact Assessment and Plan: Paresthesias- improved Dizziness- resolved Paroxysmal A. fib (rate controlled, on Coumadin) DVT/PE, Chronic back pain Chronic knee pain HTN TRACEE COPD GERD Obesity Gait dysfunction Imagin09/13/2018 CXR: No active disease 09/12/2018 Left Shoulder Xray: comminuted impacted fracture of the left humeral neck. There is a large amount of callus formation which has formed since the previous study. 09/13/[address] No intracranial mass, hemorrhage or evidence of acute infarct. Minimal chronic white matter ischemic change. Chronic pansinusitis. EKG: Sinus bradycardia at 50 bpm right bundle branch block no ST elevations QTC 439s Continue home aspirin, statin. Continue home cardizem and warfarin for paroxysmal atrial fibrillation. Continue home oxybutynin and flomax. Continue home morphine for pain control. Patient ambulates without overt difficulty. Steady gait. At this time the patient is medically stable for discharge. Patient understands and appreciates discharge plan. Patient instructed to follow up with primary care physicians and referrals within three to five days from discharge. Furthermore, the patient is instructed to take medications as prescribed and to return to emergency room for evaluation of new or worsening symptoms including but limited to intractable headache, fever, chills, dizziness, chest pain, shortness of breath, abdominal pain, nausea, vomiting, diarrhea, constipation, and urinary symptoms. Patient case reviewed with and plan approved by attending physician, Dr. Rivera. Present on Admission - Present on Admission Any Indicators Present on Admission: No Past Patient History - Infectious Disease Hx of Infectious Diseases: None - Tetanus Immunizations Tetanus Immunization: Unknown - Past Medical History & Family History Past Medical History?: Yes - Past Social History Smoking Status: Never Smoked - CARDIAC Hx Cardiac Disorders: Yes Hx Cardia Arrhythmia: Yes (AFIB) Hx Hypercholesterolemia: Yes Hx Hypertension: Yes Hx Pacemaker: No Hx Peripheral Edema: Yes (ble +1 pitting) Other/Comment: pe x2 lung, dvt x1 left leg 2015 - PULMONARY Hx Respiratory Disorders: Yes Hx Asthma: Yes Hx Chronic Obstructive Pulmonary Disease (COPD): Yes Hx Sleep Apnea: Yes (cpap at night) - NEUROLOGICAL Hx Neurological Disorder: Yes Hx Dizziness: Yes - HEENT Hx HEENT Problems: Yes (eyeglasses) Other/Comment: myringotomy with insertion of tubes to both ears due to multiple ear infections, denies hearig loss but stated "I'm prone to ear infections." - RENAL Hx Chronic Kidney Disease: No - ENDOCRINE/METABOLIC Hx Endocrine Disorders: No - HEMATOLOGICAL/ONCOLOGICAL Hx Blood Disorders: Yes Other/Comment: hx of DVT - INTEGUMENTARY Hx Dermatological Problems: Yes Other/Comment: scar TO BACK,LEFT KNEE, multiple skin discolorations to both lower legs and knees, dry skin to legs and feet and dry thick toenails to feet - MUSCULOSKELETAL/RHEUMATOLOGICAL Hx Falls: Yes (past) - GASTROINTESTINAL Hx Gastrointestinal Disorders: Yes (ibs/alternates from constipation & diarrhea) Hx Gastroesophageal Reflux: Yes Other/Comment: obese - GENITOURINARY/GYNECOLOGICAL Hx Genitourinary Disorders: Yes (overactive bladder) Hx Prostate Problems: Yes (BPH) - PSYCHIATRIC Hx Substance Use: No - SURGICAL HISTORY Hx Cardiac Catheterization: Yes Hx Orthopedic Surgery: Yes Other/Comment: R hip r/p, spinal sx, 2 left knee sx's, scheduled for a 3rd sx in november of 2017 for revision and loosening of hardware, neck sx 2 yrs ago has titanium plate behind neck with decreased rom, pt began to have back issues in 1987 due to work related injury, R knee ablation 04/24/16, internal dilaudid pump in and out, spinal cord stimulator in and out, b/l shoulder rotator cuff sx. L knee r/p X2 - ANESTHESIA Hx Anesthesia Reactions: No (DIFFICULT INTUBATION R/T NECK PROBLEMS) Meds Home Medications: Home Medication List Medication Instructions Recorded Confirmed Type Aspirin [Aspirin Chewable] 81 mg PO DAILY chew 09/14/18 Rx Montelukast [Singulair] 10 mg PO HS tab 09/14/18 Rx Oxybutynin [Ditropan Tab] 10 mg PO QAM tab 09/14/18 Rx Pantoprazole [Protonix EC Tab] 40 mg PO DAILY ect 09/14/18 Rx Tamsulosin [Flomax] 0.4 mg PO HS cap 09/14/18 Rx Warfarin [Coumadin] 7 mg PO 1800 tab 09/14/18 Rx Allergies/Adverse Reactions: Allergies Allergy/AdvReac Type Severity Reaction Status Date / Time strawberry Allergy Intermediate RASH Verified 01/21/18 11:07 tobramycin Allergy Intermediate VERTIGO/JAMES Verified 01/21/18 11:07 H Results - Vital Signs Recent Vital Signs: Last Vital Signs Temp 98.3 F 09/13/18 10:29 Pulse 46 L 09/13/18 23:40 Resp 18 09/13/18 21:43 BP 162/89 H 09/13/18 17:45 Pulse Ox 99 09/13/18 14:03 - Labs Result Diagrams: 09/13/18 11:30 09/13/18 11:30 Labs: Laboratory Results - last 24 hr 09/13/18 09/13/18 09/13/18 11:30 11:30 11:30 WBC 6.5 RBC 4.69 Hgb 13.5 L Hct 41.3 L MCV 88.1 MCH 28.8 MCHC 32.7 RDW 15.4 H Plt Count 142 MPV 8.9 Neut % (Auto) 67.3 Lymph % (Auto) 22.4 [place] % (Auto) 8.0 H Eos % (Auto) 2.0 Baso % (Auto) 0.3 Lymph # (Auto) 1.5 [place] # (Auto) 0.5 Eos # (Auto) 0.1 Baso # (Auto) 0.02 Absolute Neuts (auto) 4.35 PT 26.1 H INR 2.31 APTT 41.4 H Sodium 141 Potassium 3.5 L Chloride 101 Carbon Dioxide 35 H Anion Gap 8 L BUN 20 Creatinine 1.2 Est GFR ( Amer) > 60 Est GFR (Non-Af Amer) > 60 Random Glucose 95 Calcium 8.6 Total Bilirubin 0.3 AST 48 ALT 47 Alkaline Phosphatase 115 Lactate Dehydrogenase 647 Total Creatine Kinase 299 H CK-MB (CK-2) 2.5 CK-MB (CK-2) % Cancelled Troponin I < 0.01 D Total Protein 7.4 Albumin 3.7 Globulin 3.7 Albumin/Globulin Ratio 1.0 L Triglycerides Cholesterol LDL Cholesterol Direct HDL Cholesterol Urine Color Urine Appearance Urine pH Ur Specific [place] Urine Protein Urine Glucose (UA) Urine Ketones Urine Blood Urine Nitrate Urine Bilirubin Urine Urobilinogen Ur Leukocyte Esterase 09/13/18 09/13/18 11:30 13:00 WBC RBC Hgb Hct MCV MCH MCHC RDW Plt Count MPV Neut % (Auto) Lymph % (Auto) [place] % (Auto) Eos % (Auto) Baso % (Auto) Lymph # (Auto) [place] # (Auto) Eos # (Auto) Baso # (Auto) Absolute Neuts (auto) PT INR APTT Sodium Potassium Chloride Carbon Dioxide Anion Gap BUN Creatinine Est GFR ( Amer) Est GFR (Non-Af Amer) Random Glucose Calcium Total Bilirubin AST ALT Alkaline Phosphatase Lactate Dehydrogenase Total Creatine Kinase CK-MB (CK-2) CK-MB (CK-2) % Troponin I Total Protein Albumin Globulin Albumin/Globulin Ratio Triglycerides 134 Cholesterol 136 LDL Cholesterol Direct 80 HDL Cholesterol 29 Urine Color Yellow Urine Appearance Clear Urine pH 6.5 Ur Specific [place] 1.020 Urine Protein Negative Urine Glucose (UA) Negative Urine Ketones Negative Urine Blood Negative Urine Nitrate Negative Urine Bilirubin Negative Urine Urobilinogen 0.2 Ur Leukocyte Esterase Negative <Raciel Rivera S - Last Filed: 09/14/18 15:26> Results - Vital Signs Recent Vital Signs: Last Vital Signs Temp 97.4 F L 09/14/18 07:59 Pulse 52 L 09/14/18 07:59 Resp 20 09/14/18 07:59 BP 137/75 09/14/18 07:59 Pulse Ox 96 09/14/18 07:59 - Labs Result Diagrams: 09/13/18 11:30 09/13/18 11:30 Labs: Laboratory Results - last 24 hr 09/13/18 11:30 Triglycerides 134 Cholesterol 136 LDL Cholesterol Direct 80 HDL Cholesterol 29 Assessment & Plan - Assessment and Plan (Free Text) Plan: Pt seen and examined by me. I have reviewed the note of the medical scheduler and I agree with it. I have discussed the assessment and plan with the resident. I have reviewed the medications and the last labs.
[2018-09-14 08:00] VITALS: BP 137/75; PULSE 52; RESP 20; TEMP 97.4; O2SAT 96
--- NOTE | 2018-09-15 03:08 | DS ---
HOSPITAL COURSE: The patient was seen and examined. I do agree with the note of the certified medical dosimetrist. I was involved in the plan of care. This patient was complaining of right-sided facial electrical pain, it was going to the right shoulder. The patient had numbness and paresthesia. He said this is improved. He denies having weakness in the arms or legs. The patient said that the pain caused it to have difficulty with his right arm initially, this is improved. He is on Coumadin for atrial fibrillation and is therapeutic. He has history of DVT and PE. He is going for left knee surgery. He has COPD that is controlled. He has hypertension. The patient is being followed by Cardiology. He had a Cardiology in [place]. His white count is normal. He is going to be continued on his aspirin as an outpatient. He did not have a CVA. He does not require any Lipitor. He does not have a TIA either. The patient is on Protonix daily. Flomax for BPH. He is on Cardizem for atrial fibrillation. Raciel Rivera MD
== END 2018-09-14 10:37 | disposition home or self-care (01) ==
LOC: ED 10:14 → ERH 14:37 → 3RSO 16:27
PROVIDERS: ADMIT Internal Medicine Nephrology; ATTEND Internal Medicine Nephrology
DX: R20.0 Anesthesia of skin (principal); I48.0 Paroxysmal atrial fibrillation; E78.00 Pure hypercholesterolemia, unspecified; G47.33 Obstructive sleep apnea (adult) (pediatric); E66.9 Obesity, unspecified; I10 Essential (primary) hypertension; G89.29 Other chronic pain; I45.10 Unspecified right bundle-branch block; J32.4 Chronic pansinusitis; J44.9 Chronic obstructive pulmonary disease, unspecified; K21.9 Gastro-esophageal reflux disease without esophagitis; K58.9 Irritable bowel syndrome, unspecified; N32.81 Overactive bladder; N40.0 Benign prostatic hyperplasia without lower urinary tract symptoms; S42.212A Unspecified displaced fracture of surgical neck of left humerus, initial encounter for closed fracture; Z79.01 Long term (current) use of anticoagulants; Z79.82 Long term (current) use of aspirin; Z79.899 Other long term (current) drug therapy; Z86.711 Personal history of pulmonary embolism; Z86.718 Personal history of other venous thrombosis and embolism; M25.569 Pain in unspecified knee; R42 Dizziness and giddiness; R00.1 Bradycardia, unspecified; Z88.1 Allergy status to other antibiotic agents; Z91.018 Allergy to other foods; Z68.38 Body mass index [BMI] 38.0-38.9, adult
CPT/HCPCS: 36415; 70450; 71045; 80053; 80061; 81003; 82550; 82553; 83615; 84484; 85025; 85610; 85730; 93005; 94660; 99285; G0378

== ENCOUNTER 2018-10-17 11:05 | Outpatient (CLI) | payer BC, MEDICARE | END 2018-10-17 11:06 | disposition home or self-care (01) | LOC: LAB 11:05 ==

== ENCOUNTER 2018-11-04 10:34 | Outpatient (CLI) | payer BC, MEDICARE | END 2018-11-04 10:35 | disposition home or self-care (01) | LOC: CARDIO 10:34 ==